=== PATIENT | female | born 1985 | race Caucasian/White ===

== ENCOUNTER 2020-01-22 12:22 | Emergency (ER) | payer BC, SELFPAY ==
--- NOTE | ~2020-01-22 | XR_ITS ---
EXAMINATION: XR chest 1V portable EXAM DATE: 01/22/2020 12:57 INDICATION: Left-sided chest pain and shortness of breath. TECHNIQUE: Portable AP frontal chest x-ray was obtained. Comparison is made to prior examination from 07/21/2009. FINDINGS: The lungs are clear. There are no pleural effusions. The cardiomediastinal silhouette is within normal limits. There is no pneumothorax suspected. The bones and soft tissues are unremarkab le. IMPRESSION: Unremarkable chest x-ray exam. Reviewed, dictated and finalized at location A.
--- NOTE | ~2020-01-22 | CT_ITS ---
EXAMINATION: CTA chest PE abdomen pel DATE: 01/22/2020 13:57 INDICATION: Left-sided chest pain and upper abdominal pain. TECHNIQUE: Computed tomography (CT) pulmonary angiogram of the chest was performed with 100 mL Omnipa que-350 intravenous contrast. Additional 3D reconstructions utilizing coronal maximum intensity proje ction (MIP) were performed. CT of the abdomen and pelvis was performed with intravenous contrast util izing the same contrast bolus following a short delay. Automated exposure control and iterative recon struction technique were employed. The dose-length product was 330.20 mGy-cm. COMPARISON: None FINDINGS: Chest: Excellent contrast opacification of the pulmonary arteries. There is mild streak artifact from dense contrast in the superior vena cava and right atrium. Significant motion artifact yielding diagnostic quality study which demonstrates no pulmonary embolism. Lungs are clear with no airspace disease, pul monary edema, pleural effusion or pneumothorax. Heart size is normal. No pericardial effusion. Thorac ic aorta is normal in caliber with no dissection. Mildly prominent left hilar lymph nodes but which r emain within normal limits in size, all measuring <8 mm in maximal short axis diameter. No pathologic ally enlarged thoracic lymphadenopathy. Mild lower thoracic spondylosis with a few Schmorl's nodes an d chronic mild anterior wedging at T10. Abdomen/pelvis: Liver, gallbladder, spleen, pancreas, bilateral adrenal glands and kidneys are normal. Postoperative changes with suture line along the posterior margin of the cecum and not visualized appendix suggesti ng prior appendectomy. Small amount of gas and fluid scattered throughout the small bowel. No abnorma l bowel wall thickening or obstruction. 4.3 cm subserosal fibroid along the anterior uterine fundus. Bladder is normal. Left adnexa is unremarkable. There is small amount of free fluid surrounding the r ight adnexa and in the cul-de-sac. The right adnexa there are a couple peripherally enhancing likely corpus luteum cysts. The larger measures approximately 1.9 cm with a discontinuity in the anterior wa ll consistent with a cyst rupture. No pathologically enlarged abdominal or pelvic lymphadenopathy. Tr ansitional partially lumbarized S1 segment. IMPRESSION: 1. Minimal likely reactive left hilar lymphadenopathy. No pulmonary embolism or other acute cardiopul monary disease. 2. Small amount of free fluid in the cul-de-sac and about the right adnexa where there appear to be a couple peripherally enhancing likely corpus luteum cysts, one with discontinuous anterior wall consi stent with cyst rupture. 3. 4.3 cm uterine fibroid. Reviewed, dictated and finalized at location A. IMPRESSION: 1. Minimal likely reactive left hilar lymphadenopathy. No pulmonary embolism or other acute cardiopulmonary disease. 2. Small amount of free fluid in the cul-de-sac and about the right adnexa wher e there appear to be a couple peripherally enhancing likely corpus luteum cysts , one with discontinuous anterior wall consistent with cyst rupture. 3. 4.3 cm uterine fibroid.
[2020-01-22 12:31] VITALS: BP 147/101; PULSE 111; RESP 20; TEMP 37.2; O2SAT 99
--- NOTE | 2020-01-22 12:35 | ED.CHESTPAIN ---
HPI - Chest Pain General Chief Complaint: Chest Pain Stated Complaint: chest pain Time Seen by Provider: 01/22/20 12:26 Source: patient and RN notes reviewed Mode of arrival: ambulatory Limitations: no limitations History of Present Illness HPI narrative: Pt is a 34 y/o female who presents to the ED with c/o lt sided chest pain starting last night. She notes that she laid around for most of the day yesterday, stating that she didn't sustain any injuries that could have caused her pain. Pt notes that she developed pain in her lt lower chest last night. She states that she then took Ibuprofen 600 mg for her pain, but denies having much relief. Pt notes that her pain worsened later this morning after doing laundry, and states that her pain began to radiate into her lt upper chest. She states that her pain is aggravated with breathing. Pt currently rates her pain at 8-9/10. She reports SOB accompanying her pain, but denies any fever, chills, or sore throat. Pt also notes being nauseas earlier, but denies any nausea currently. MD complaint: chest pain Onset (ago): day(s) (1) Timing of current episode: increasing Onset: during rest Pain location: left chest Exacerbating factors: other (breathing) Associated symptoms: nausea (resolved) and dyspnea Related Data Allergies Allergy/AdvReac Type Severity Reaction Status Date / Time codeine Allergy Unknown Verified 08/12/14 08:28 Review of Systems Review of Systems: All systems reviewed & are unremarkable except as noted in HPI and below Constitutional: Constitutional: Denies chills and Denies fever(s) ENT: Denies sore throat Cardiovascular: Cardiovascular: Reports chest pain (lt sided chest pain) Respiratory: Respiratory: Reports dyspnea Gastrointestinal: Gastrointestinal: Reports nausea (resolved) [facility] Past Medical History Medical History Anxiety Bilateral ankle fractures Endometriosis Right wrist fracture UTI (urinary tract infection) Surgical History Surgical History History of endometrial ablation History of left oophorectomy Hx of appendectomy Hx of right knee surgery Family History Family History (Updated 06/03/16 @ 23:19 by DOCTOR UNKNOWN) Father Hypertension Family history of diabetes mellitus in first degree relative Mother Hypertension Asthma Other Depression Diabetes mellitus Family history of arthritis Family history of migraine headaches Social History Social History Smoking status: Former smoker Smoking end date: 11/06/15 Alcohol intake: never Exam Const: General: alert Orientation/consciousness: patient oriented x3 Other: patient does not appear ill, she does appear to be in severe pain. HENMT: Head: normocephalic and atraumatic Mouth: Yes Normal oral and palatal mucosa present and Yes lip normal Eyes: Pupils: Equal, round and reactive pupils present Neck: Neck: normal visual inspection and no lymphadenopathy Chest: Chest palpation & inspection: tenderness (entire left chest tenderness, no erythema, no crepitus) Resp: Effort & Inspection: normal respiratory effort, no retractions, not tachypneic and no use of accessory muscles Auscultation: clear to auscultation bilaterally Cardio: Rate: regular rate Rhythm: regular rhythm Heart sounds: no murmurs GI: Inspection: normal to inspection and non-distended GI Palp: Yes Soft to palpation and No Tenderness to palpation present (GI) Auscultation: normal bowel sounds Back/Spine/Pelvis: Back: no CVA tenderness Skin: General skin exam: normal color Rashes: no rashes Neuro: General: patient oriented x3 and moves all extremities Extrem: General: normal to inspection and no pedal edema Course Reevaluation(s) Reevaluation #1: I have discussed with patient that she was found to have ruptured ovarian cyst. Her pain
[2020-01-22 12:41] VITALS: O2SAT 99
[2020-01-22 12:42] VITALS: PULSE 110
--- NOTE | 2020-01-22 12:45 | ECG_ITS ---
Measurements Intervals [place] Rate: 109 P: 68 MS: 105 QRS: 73 QRSD: 89 T: 42 QT: 313 QTc: 422 Interpretive Statements SINUS TACHYCARDIA WITH SHORT MS INTERVAL BASELINE ARTIFACT- I, II, III, AVR, AVL, AVF, V1 ABNORMAL ECG Electronically Signed On 01-22-2020 13:03:21 CDT by Víctor Onofre D.O.
[2020-01-22] MEDS: LACTATED RINGERS 1,000 ML 999 ML IV CONT (12:50)
[2020-01-22] MEDS: KETOROLAC 30 MG/ML VIAL (*BKC) IV PUSH (12:50)
[2020-01-22 12:55] LABS: Basophils Absolute Auto 0.1 K/mm3 (0.0-0.1); Basophils Percent Auto 0.5 % (0.2-1.2); Eosinophils Absolute Auto 0.4 K/mm3 (0-0.3); Eosinophils Percent Auto 2.8 % (0-4.4); Hematocrit 38.3 % (37.0-47.0); Hemoglobin 13.2 g/dL (12.0-15.0); Immature Granulocyte Absolute 0.06 K/mm3 (0.00-0.031); Immature Granulocyte Percent A 0.4 % (0-0.5); Lymphocytes Absolute Auto 2.81 K/mm3 (0.9-3.2); Lymphocytes Percent Auto 19.4 % (18.3-44.2); Mean Corpuscular HGB Conc 34.5 g/dl (32-36); Mean Platelet Volume 10.8 fl (7.4-10.4); Monocytes Absolute Auto 1.2 K/mm3 (0.1-0.6); Monocytes Percent Auto 8.1 % (2.6-8.5); Neutrophils Percent Auto 68.8 % (45.5-73.1); Platelet Count Result 362 k/mm3 (150-375); Red Cell Distribution Width 12.1 % (11.5-14.5); White Blood Count 14.5 K/mm3 (4.5-10.0)
[2020-01-22 13:04] LABS: INR 0.9
[2020-01-22 13:05] LABS: Partial Thromboplastin Time 24.5 SECONDS (22.3-36.8)
[2020-01-22 13:17] LABS: Alanine Aminotransferase 54 U/L (4-35); Albumin Level 4.2 g/dL (3.5-5.1); Alkaline Phosphatase 71 U/L (38-126); Aspartate Amino Transferase 38 U/L (14-36); Bilirubin,Total 0.5 mg/dL (0.2-1.3); Blood Urea Nitrogen 8 mg/dL (7-17); Calcium 9.3 mg/dL (8.4-10.2); Carbon Dioxide 22 mmol/L (22-30); Chloride 110 mmol/L (98-107); Estimated CRCL calculation 110 ml/min; Estimated Glomerular Filt Rate > 60; Glucose 99 mg/dL (65-105); Lipase 75 U/L (23-300); Potassium 3.8 mmol/L (3.4-5.0); Sodium 139 mmol/L (137-145)
[2020-01-22 13:29] LABS: Troponin I < 0.012 ng/mL (0.000-0.034)
[2020-01-22] MEDS: ONDANSETRON INJ 4 MG/2 ML VIAL IV PUSH (14:33)
[2020-01-22] MEDS: HYDROMORPHONE HCL 1 MG/ML INJ IV PUSH (14:33)
[2020-01-22 15:01] VITALS: BP 122/73; PULSE 83; RESP 16; O2SAT 98
[2020-01-22 16:03] LABS: Troponin I < 0.012 ng/mL (0.000-0.034)
[2020-01-22 16:34] VITALS: BP 117/71; PULSE 80; RESP 18; O2SAT 100
== END 2020-01-22 16:35 | disposition home or self-care (01) ==
PROVIDERS: Emergency Provider General Practice; PCP Emergency Medicine
DX: R07.89 Other chest pain (principal); N83.201 Unspecified ovarian cyst, right side; R00.0 Tachycardia, unspecified; F41.9 Anxiety disorder, unspecified
CPT/HCPCS: 36415; 71045; 71275; 74177; 80053; 81025; 83690; 84484; 85025; 85610; 85730; 93005; 96361; 96374; 96375; 99284; J1170; J1885; J2405; J3360; J7120; Q9967

== ENCOUNTER 2021-05-11 18:02 | Emergency (ER) | payer BC, SELFPAY ==
--- NOTE | ~2021-05-11 | CT_ITS ---
EXAMINATION: CTA chest PE abdomen pel DATE: 05/12/2021 00:55 INDICATION: Shortness of breath, back pain. History of lupus. TECHNIQUE: Computed tomography angiography (CTA) of the chest was performed with 100 mL Omnipaque-350 intravenous contrast timed to evaluate the pulmonary arteries. Coronal maximum intensity projection 3D-reconstructions were created by the technologist. Automated exposure control and iterative reconst ruction technique were employed. Exam dose: 366.89 mGy-cm total exam DLP. COMPARISON: 05/11/2021 2 view chest 01/22/2020 CT pulmonary scan FINDINGS: There is diagnostic contrast enhancement of the pulmonary arteries and no evidence of pulmo nary embolism. No evidence of thoracic aortic aneurysm or dissection. Normal heart size. No pericardial or pleural e ffusion. Mild prominence of the left hilar lymph nodes, as noted on 01/22/2020. No pulmonary infiltrate or consolidation or pulmonary mass lesion. No suspicious osteolytic or osteoblastic lesions. IMPRESSION: No evidence of pulmonary embolism Reviewed, dictated and finalized at Location A. Reviewed, dictated and finalized at location A.
--- NOTE | ~2021-05-11 | XR_ITS ---
EXAMINATION: XR chest 2V 05/11/2021 18:26 INDICATION: Low generalized back pain. History of lupus. PROCEDURE: 2 view chest COMPARISON: 01/22/2020 FINDINGS: The lungs are clear. The cardiomediastinal silhouette is within normal limits. There are no pleural effusions. There is no pneumothorax suspected. IMPRESSION: 1: NO ACUTE CARDIOPULMONARY DISEASE. Reviewed, dictated and finalized at location A.
[2021-05-11 18:08] VITALS: BP 142/70; PULSE 100; RESP 14; TEMP 37.6; O2SAT 98
--- NOTE | 2021-05-11 18:12 | ECG_ITS ---
Measurements Intervals [place] Rate: 87 P: 68 RI: 134 QRS: 76 QRSD: 87 T: 56 QT: 341 QTc: 411 Interpretive Statements SINUS RHYTHM LEFT ATRIAL ENLARGEMENT INCOMPLETE RIGHT BUNDLE BRANCH BLOCK BORDERLINE ECG Electronically Signed On 05-12-2021 8:15:13 CDT by Víctor Onofre D.O.
[2021-05-11 18:51] LABS: Basophils Absolute Auto 0.1 K/mm3 (0.0-0.1); Basophils Percent Auto 0.4 % (0.2-1.2); Eosinophils Absolute Auto 0.6 K/mm3 (0-0.3); Eosinophils Percent Auto 4.8 % (0-4.4); Hemoglobin 12.7 g/dL (12.0-15.0); Immature Granulocyte Absolute 0.04 K/mm3 (0.00-0.031); Immature Granulocyte Percent A 0.3 % (0-0.5); Lymphocytes Absolute Auto 4.27 K/mm3 (0.9-3.2); Lymphocytes Percent Auto 34.5 % (18.3-44.2); Mean Corpuscular HGB Conc 34.3 g/dl (32-36); Mean Corpuscular Hemoglobin 29.3 pg (26-34); Mean Corpuscular Volume 85.5 fl (80-100); Mean Platelet Volume 10.4 fl (7.4-10.4); Monocytes Percent Auto 8.1 % (2.6-8.5); Neutrophils Absolute Auto 6.4 K/mm3 (1.3-6.7); Neutrophils Percent Auto 51.9 % (45.5-73.1); Platelet Count Result 334 k/mm3 (150-375); Red Blood Count 4.33 M/mm3 (4.2-5.4); Red Cell Distribution Width 12.7 % (11.5-14.5); White Blood Count 12.4 K/mm3 (4.5-10.0)
[2021-05-11 19:00] LABS: Anion Gap 6 mmol/L (8-16); Blood Urea Nitrogen 8 mg/dL (7-17); Calcium 9.5 mg/dL (8.4-10.2); Carbon Dioxide 24 mmol/L (22-30); Chloride 107 mmol/L (98-107); Estimated CRCL calculation 133 ml/min; Estimated Glomerular Filt Rate > 60; Glucose 101 mg/dL (65-105); Potassium 3.7 mmol/L (3.4-5.0); Sodium 137 mmol/L (137-145)
--- NOTE | 2021-05-12 00:14 | ED.GENADULT ---
HPI - General Adult General Chief complaint: Shortness of Breath/Dyspnea Stated complaint: sob/back pain Time Seen by Provider: 05/11/21 23:33 History of Present Illness HPI narrative: Patient 35-year-old female presents the emergency department with chief complaint of back pain and shortness of breath. Patient reports she has history of lupus is currently not on any kind of treatment for that and reports that she has been having pain in the paraspinous muscles in the low thoracic area radiating down to her back. Patient reports had some shortness of breath with this reports is not able to get comfortable in any position. Patient reports she not having any real chest pain but does have shortness of breath with this. The patient reports that she is had some diarrhea which been chronic denies fever or denies vomiting. Related Data Allergies Allergy/AdvReac Type Severity Reaction Status Date / Time codeine Allergy Unknown Verified 08/12/14 08:28 Review of Systems Review of Systems: Narrative: A 10 system review of systems was completed on the patient and is negative except for what is stated in the HPI. Nursing and ancillary documentation was reviewed. [facility] Past Medical History Medical History (Updated 05/12/21 @ 01:52 by Juan Ruby MD) Anxiety Bilateral ankle fractures Endometriosis Right wrist fracture UTI (urinary tract infection) Surgical History Surgical History History of endometrial ablation History of left oophorectomy Hx of appendectomy Hx of right knee surgery Family History Family History Father Hypertension Family history of diabetes mellitus in first degree relative Mother Hypertension Asthma Other Depression Diabetes mellitus Family history of arthritis Family history of migraine headaches Social History Social History Smoking status: Former smoker Smoking end date: 11/06/15 Alcohol intake: never Exam Narrative: Exam Narrative: GENERAL: Well-appearing, well-nourished, and in no acute distress. HEAD: Normocephalic, atraumatic. EYES: PERRLA and EOMI. ENT: Nares clear, no rhinorrhea or epistaxis. Mucous membranes moist. NECK: Supple. CHEST: Clear to auscultation. No respiratory distress. HEART: Regular rate and rhythm. No murmur heard. Normal peripheral pulses. ABDOMEN: Soft, nontender, nondistended, normal active bowel sounds. EXTREMITIES: Normal range of motion. No edema. SKIN: Warm, dry, no rash. NEURO: No focal deficits. Alert and oriented x3. PSYCH: Normal mood and affect. Course Vital Signs Vital signs: Vital Signs Temperature 37.6 C H 05/11/21 18:08 Pulse Rate 100 05/11/21 18:08 Respiratory Rate 14 05/11/21 18:08 Blood Pressure 142/70 H 05/11/21 18:08 Pulse Oximetry 98 05/11/21 18:08 Temperature 37.6 C H 05/11/21 18:08 Pulse Rate 100 05/11/21 18:08 Respiratory Rate 14 05/11/21 18:08 Blood Pressure 142/70 H 05/11/21 18:08 Pulse Oximetry 98 05/11/21 18:08 Medical Decision Making Vital Signs Vital Signs: Vital Signs Temperature 37.6 C H 05/11/21 18:08 Pulse Rate 100 05/11/21 18:08 Respiratory Rate 14 05/11/21 18:08 Blood Pressure 142/70 H 05/11/21 18:08 Pulse Oximetry 98 05/11/21 18:08 Temperature 37.6 C H 05/11/21 18:08 Pulse Rate 100 05/11/21 18:08 Respiratory Rate 14 05/11/21 18:08 Blood Pressure 142/70 H 05/11/21 18:08 Pulse Oximetry 98 05/11/21 18:08 Lab Data Result diagrams: 05/11/21 18:43 05/11/21 18:43 Labs: Lab Results 05/11/21 05/11/21 05/12/21 Range/Units 18:43 18:43 00:14 WBC 12.4 H (4.5-10.0) K/mm3 RBC 4.33 (4.2-5.4) M/mm3 Hgb 12.7 (12.0-15.0) g/dL Hct 37.0 (37.0-47.0) % MCV 85.5 (80-100) fl MCH 29.3 (2
[2021-05-12] MEDS: SODIUM CHLORIDE 0.9% IV 1,000 ML 999 ML IV CONT (00:29)
[2021-05-12] MEDS: MORPHINE SULFATE (*CRX) 4 MG/ML INJ IV PUSH (00:31)
[2021-05-12] MEDS: KETOROLAC 30 MG/ML VIAL (*BKC) IV PUSH (00:32)
[2021-05-12 00:49] LABS: Lactic Acid Reflex 0.6 mmol/L (0.7-2.1)
[2021-05-12 00:50] LABS: Alanine Aminotransferase 39 U/L (4-35); Alkaline Phosphatase 80 U/L (38-126); Aspartate Amino Transferase 34 U/L (14-36); Bilirubin,Total 0.6 mg/dL (0.2-1.3); Lipase 75 U/L (23-300)
[2021-05-12 01:03] LABS: NT Pro B Type Natriuretic Pept 186 pg/mL (5-100); Troponin I < 0.012 ng/mL (0.000-0.034)
[2021-05-12 02:36] VITALS: BP 132/71; PULSE 77; RESP 18; O2SAT 99
[2021-05-12 04:52] LABS: Alanine Aminotransferase 41 U/L (4-35); Alkaline Phosphatase 80 U/L (38-126); Aspartate Amino Transferase 37 U/L (14-36); Bilirubin,Total 0.4 mg/dL (0.2-1.3); Lipase 76 U/L (23-300)
--- NOTE | 2021-05-14 03:44 | PC.NURSE ---
LATE ENTRY This note is being entered to document information to the patient's record. The following information was omitted on [], by rosalba patel @ 05/12/21 @0050[].
== END 2021-05-12 02:39 | disposition home or self-care (01) ==
PROVIDERS: Emergency Medicine; Emergency Provider Emergency Medicine; PCP Emergency Medicine
DX: R06.00 Dyspnea, unspecified (principal); M54.9 Dorsalgia, unspecified; Z87.440 Personal history of urinary (tract) infections; Z87.891 Personal history of nicotine dependence; I45.10 Unspecified right bundle-branch block; R94.31 Abnormal electrocardiogram [ECG] [EKG]; N83.201 Unspecified ovarian cyst, right side
CPT/HCPCS: 36415; 71046; 71275; 74177; 80048; 80076; 83605; 83690; 83880; 84484; 85025; 93005; 96374; 96375; 99284; J1885; J2270; J7030; Q9967

== ENCOUNTER 2021-06-28 00:47 | Day surgery (SDC) | payer BC, SELFPAY ==
--- NOTE | 2021-06-25 10:01 | PM.IMHP ---
H&P: HPI History of Present Illness Date/Time: 06/25/21 10:01 35 y/o with persistent RLQ pain and known right ovarian cyst. Amenorrheic s/p ablation Chief Complaint: right ovarian cyst, pelvic pain Review of Systems Review of Systems: All systems reviewed & are unremarkable except as noted in HPI and below PMFSH Past Medical History Medical History Anxiety Bilateral ankle fractures Endometriosis HSV (herpes simplex virus) infection Lupus Migraine Right wrist fracture Surgical History Surgical History History of endometrial ablation 2018? History of laparoscopy 9 on ovaries and 3 on right knee History of left oophorectomy Hx of appendectomy Hx of right knee surgery x3 [place] teeth extracted Family History Family History Father Hypertension Diabetes mellitus Heart problem Mother Hypertension Asthma Anxiety Depression Cerebrovascular accident Other Family history of arthritis Family history of migraine headaches Social History Social History Smoking packs per day: 0.5 Smoking cigarettes per day: 10.0 Years smoked: 18 Smoking pack-years: 9.00 Smoking status: Current every day smoker Tobacco type: cigarettes Smoking end date: 11/06/15 Alcohol intake: current Drinks per week: 4 Alcohol use details: socially Substance use: never Meds Home Medications and Allergies Home Medications Medication Instructions Recorded Confirmed Type alprazolam 0.5 mg tablet 0.5 mg PO QHS PRN 05/31/21 06/23/21 History escitalopram oxalate 10 mg tablet 10 mg PO DAILY 05/31/21 06/23/21 History hydroxychloroquine 200 mg PO DAILY 06/23/21 06/23/21 History Allergies Allergy/AdvReac Type Severity Reaction Status Date / Time No Known Allergies Allergy Verified 06/21/21 10:59 Exam Const: General: cooperative, healthy appearing, no acute distress, well developed, alert and awake Resp: Auscultation: clear to auscultation bilaterally Cardio: Rate: regular rate Rhythm: regular rhythm GI: Inspection: non-distended GI Palp: Yes Soft to palpation and No Tenderness to palpation present (GI) : Bimanual exam- vagina & uterus: normal bimanual exam, uterine size normal, uterine mobility normal, non-tender, no cervical motion tenderness and soft Bimanual Exam- Adnexa, other: tender on the right and Adnexal mass present on the right Extrem: General: no pedal edema and no calf tenderness Psych: Mental Status: mental status grossly normal Assessment and Plan Assessment and plan (1) Right ovarian cyst: Code(s): N83.201 - Unspecified ovarian cyst, right side Status: Acute Assessment and Plan: She opted and signed consent for laparoscopic right oophorectomy and bilateral salpingectomy (if both tubes are still present, unsure if left tube removed with her prior oophorectomy or not) after risks, benefits, complications, and alternatives discussed. She is aware removing her remaining ovary will put her into menopause, and we will start HRT immediately due to her young age. (2) Pelvic pain: Code(s): R10.2 - Pelvic and perineal pain Status: Acute
[2021-06-28] VITALS (8 sets, daily range): BP systolic 107–131; BP diastolic 54–77; PULSE 58–108; RESP 13–19; TEMP 36.6–37.1; O2SAT 98–100
[2021-06-28] MEDS: ACETAMINOPHEN 500 MG TABLET 1000 MG PO (10:40)
--- NOTE | 2021-06-28 10:45 | P.PNAN_ITS ---
Anes - Initial Pre Proc Eval Procedure: Operation Date: 06/28/21 12:00 Proposed Procedures p Laparoscopic Right Oophorectomy, Bilateral Salpingectomy - Zaida Kruger MD Date/Time: 06/28/21 10:45 Surgeon: Zaida Kruger MD Pre Op Diagnosis: ovarian cyst, pelvic pain Patient Data Age: 35 Gender: F Height: Weight: Allergies Allergy/AdvReac Type Severity Reaction Status Date / Time No Known Allergies Allergy Verified 06/28/21 10:33 Home Medications Medication Instructions Recorded Confirmed Type alprazolam 0.5 mg tablet 0.5 mg PO QHS PRN 05/31/21 06/28/21 History escitalopram oxalate 10 mg tablet 10 mg PO DAILY 05/31/21 06/28/21 History hydroxychloroquine 200 mg PO DAILY 06/23/21 06/28/21 History Patient hx anesthesia problems: none Family hx anesthesia problems: none PMFSH Past Medical History Medical History (Updated 06/28/21 @ 10:51 by Richmond Montanez DO) Anxiety Bilateral ankle fractures Discoid lupus just skin Endometriosis HSV (herpes simplex virus) infection Migraine Right wrist fracture Surgical History Surgical History History of endometrial ablation 2018? History of laparoscopy 9 on ovaries and 3 on right knee History of left oophorectomy Hx of appendectomy Hx of right knee surgery x3 [place] teeth extracted Family History Family History Father Hypertension Diabetes mellitus Heart problem Mother Hypertension Asthma Anxiety Depression Cerebrovascular accident Other Family history of arthritis Family history of migraine headaches Social History Social History Smoking packs per day: 0.5 Smoking cigarettes per day: 10.0 Years smoked: 18 Smoking pack-years: 9.00 Smoking status: Current every day smoker Tobacco type: cigarettes Smoking end date: 11/06/15 Alcohol intake: current Drinks per week: 4 Alcohol use details: socially Substance use: never Living arrangements: with family Anes - Eval Final PreProcedure Day of Procedure 06/28/21 10:45 Patient weight: normal Heart: regular rate and rhythm Lungs: clear to auscultation and normal air movement Airway: Mallampati scale class 1 Neurological: alert and oriented Last oral intake: >/= 8 hours ASA classification: II Emergent: no Anesthetic plan: proceed Anesthesia type and monitoring: general ETT and standard monitoring Informed Consent: The patient's anesthetic plan and its attendant risks and benefits were discussed with the patient/family/POA. Questions were solicited and answers provided to the satisfaction of the patient/family/POA.
[2021-06-28] MEDS: LACTATED RINGERS 1,000 ML 30 ML IV CONT ×2 (10:50→13:19)
[2021-06-28] MEDS: FAMOTIDINE 20 MG/2 ML VIAL IV PUSH (11:09)
[2021-06-28] MEDS: KETOROLAC 15 MG/ML VIAL (*BKC) IV PUSH (11:09)
[2021-06-28] MEDS: SCOPOLAMINE 1.5 MG PATCH TRANSDERM (11:10)
--- NOTE | 2021-06-28 11:26 | WPDHPUPDATE1 ---
History and Physical Update Update Date/Time: 06/28/21 11:26 History and Physical has been reviewed, including an updated exam of the patient. There are NO changes in the patient's condition. Risks, benefits, and alternatives have been discussed and questions answered. Patient agrees to proceed with procedure.
[2021-06-28] MEDS: MIDAZOLAM HCL (*CRX) 2 MG/2 ML VIAL IV PUSH (12:00)
--- NOTE | 2021-06-28 12:12 | P.OP_ITS ---
Procedure Note - Detailed Date of Procedure 06/28/21 Pre-op Diagnosis ovarian cyst, pelvic pain Post-op Diagnosis other (right ovarian cyst, pelvic pain, endometriosis) Procedure Performed L/S right oophorectomy, bilateral salpingectomy, excision and cauterization of endometriosis Surgeon Zaida Kruger MD Anesthesia general Indications Right ovarian cyst and pelvic pain Findings right ovary with 3 cm serous filled cyst, normal bilateral tubes, normal uterus, liver. Endometriosis implants in cul-de-sac, left paraovarian fossa, and vesicouterine peritoneum Description of Procedure She was taken to the operating where she was placed under general anesthesia. She was prepared and draped in the normal sterile fashion in the dorsal lithotomy position. Marcaine was injected infraumbilically. A 5 mm skin in cision was made in the infraumbilical fold. A 5 mm non bladed trocar was placed with the camera in the trocar under direct visualization into the peritoneal cavity. Insufflation was begun, and she was placed in Trendelenburg. 5 mm trocar was placed in the right lower quadrant under direct visualization. Inspection of the pelvis revealed the findings as noted above. A 10 mm trocar was then placed in the midline suprapubic area under direct visualization. Some minor adhesions between the colon and left pelvic sidewall were removed using the Harmonic scalpel in order to visualize the left fallopian tube more effectively. The mesosalpinx of the left tube was grasped and serially transected. The fallopian tube was then transected near its insertion to the uterus. That tube was brought easily through the trocar and sent for pathology. The right infundibulopelvic ligament was then grasped coagulated and transected using the Harmonic scalpel. The mesosalpinx was serially clamped and transected. The right utero-ovarian ligament was transected. The right fallopian tube was then transected near its insertion to the uterus. The right tube and ovary were placed in the posterior cul-de-sac. Next, an endometriosis implant to the left vesicouterine peritoneum was grasped. That peritoneum was entered with the Harmonic scalpel. That endometriosis implant was excised and sent for pathology. The same procedure was performed for another endometriosis implant in the left paraovarian fossa, and taking care to avoid the ureter on that side, which was easily visible. There were a few more endometriosis implants in the posterior cul-de-sac as well as on the vesicouterine peritoneum which were all cauterized using the Harmonic scalpel. The right fallopian tube and ovary were then grasped and placed in an endo-pouch. The suprapubic incision was extended slightly with the scalpel at the skin as well as using the Baez scissors at the fascia in order to allow the Endo pouch containing the tube and ovary to fit through that incision. The Michael-Ambrose device was then used along with an 0 Vicryl to close the fascia of the suprapubic incision. Two sutures were placed. The pneumoperitoneum was allowed to escape after the operative sites were noted to be hemostatic. All trocars were removed. All 3 skin incisions were closed using 4-0 Monocryl in subcuticular fashion. She tolerated the procedure well. Sponge, lap, needle, and instrument counts were correct x2. She was taken to the recovery room in stable condition. Estimated Blood Loss 10 Drains No Packing No Pathology yes (both tubes, right ovary, and two peritoneal biopsies) Complications No immediate complications Condition stable Disposition PACU
[2021-06-28] MEDS: BUPIVACAINE/EPINEPHRINE 0.5% 50 ML VIAL (13:07)
[2021-06-28] MEDS: fentaNYL CITRATE INJ (*CRX) 100 MCG/2 ML VIAL 25 MCG IV PUSH ×4 (13:40→13:49)
[2021-06-28] MEDS: oxyCODONE HCL (*CRX) 5 MG TAB IR PO (14:30)
== END 2021-06-28 15:04 | disposition home or self-care (01) ==
PROVIDERS: PCP Emergency Medicine; Visit Provider Obstetrics & Gynecology
PROC: (CPT 49320; principal; 2021-06-28 12:00)
DX: N83.01 Follicular cyst of right ovary (principal); N80.3 Endometriosis of pelvic peritoneum; N73.6 Female pelvic peritoneal adhesions (postinfective); F41.9 Anxiety disorder, unspecified; F32.9 Major depressive disorder, single episode, unspecified; L93.0 Discoid lupus erythematosus; F17.210 Nicotine dependence, cigarettes, uncomplicated; Z79.899 Other long term (current) drug therapy
CPT/HCPCS: 58661; 58662; 88305; A9270; J0330; J1100; J1885; J2250; J2405; J2704; J2710; J3010; J7030; J7120

== ENCOUNTER 2021-07-01 16:42 | Inpatient (IN) | payer BC, SELFPAY ==
--- NOTE | ~2021-07-01 | CT_ITS ---
EXAMINATION: CT abdomen pelvis w con DATE: 07/01/2021 20:17 INDICATION: Lower abdominal pain TECHNIQUE: Computed tomography (CT) of the abdomen and pelvis was performed with 100 cc Omnipaque 350 intravenous contrast. Automated exposure control and iterative reconstruction technique were employe d. Exam dose: 264.18 mGy-cm total exam DLP. COMPARISON: 05/12/2021 CTA chest abdomen pelvis FINDINGS: The lung bases are clear. Normal heart size. No pericardial or pleural effusion. There is prominent intraperitoneal free air in the abdomen and pelvis, greater than expected consider ing history of oophorectomy 4 days ago. There are numerous fluid distended small bowel segments and s mall bowel air-fluid levels in the mid and lower abdomen, measuring up to approximately 2.3 cm diamet er. The distal and terminal ileum are considerably smaller caliber. Ruptured hollow abdominal viscus is not excluded. The small bowel fluid distention and air-fluid levels may be due to adynamic ileus, less likely small bowel obstruction. There is moderate free fluid in the dependent pelvis and mild fluid accumulation in the paracolic gut ters. The liver, gallbladder, spleen, pancreas, bile ducts, pancreatic duct, and adrenal glands and kidneys are unremarkable. No urinary tract calculus or hydroureteronephrosis. Normal caliber of the abdominal aorta. No intraperitoneal or retroperitoneal or pelvic mass lesion or adenopathy. Mildly enlarged probable fibroid uterus. The urinary bladder is unremarkable. Small umbilical hernia containing fat and free air. No suspicious osteolytic or osteoblastic lesions. IMPRESSION: Greater than expected amount of intraperitoneal free air following oophorectomy 4 days a go, [id number] free fluid in the dependent pelvis and to a lesser extent paracolic gutters. Con pile driving setter hollow viscus rupture. Surgical consult is recommended. Reviewed, dictated and finalized at [facility]. Reviewed, dictated and finalized at [facility]. IMPRESSION: Greater than expected amount of intraperitoneal free air following oophorectomy 4 days ago, [id number] free fluid in the dependent pelvis a nd to a lesser extent paracolic gutters. Consider hollow viscus rupture. Surgic al consult is recommended.
[2021-07-01 16:51] VITALS: BP 120/78; PULSE 113; RESP 19; TEMP 37.5; O2SAT 100
[2021-07-01 17:08] LABS: Basophils Percent Auto 0.2 % (0.2-1.2); Eosinophils Absolute Auto 0.5 K/mm3 (0-0.3); Eosinophils Percent Auto 3.9 % (0-4.4); Hematocrit 38.4 % (37.0-47.0); Hemoglobin 13.1 g/dL (12.0-15.0); Immature Granulocyte Absolute 0.04 K/mm3 (0.00-0.031); Immature Granulocyte Percent A 0.3 % (0-0.5); Lymphocytes Absolute Auto 2.51 K/mm3 (0.9-3.2); Lymphocytes Percent Auto 18.8 % (18.3-44.2); Mean Corpuscular HGB Conc 34.1 g/dl (32-36); Mean Corpuscular Hemoglobin 29.4 pg (26-34); Mean Corpuscular Volume 86.3 fl (80-100); Mean Platelet Volume 10.4 fl (7.4-10.4); Monocytes Absolute Auto 0.8 K/mm3 (0.1-0.6); Monocytes Percent Auto 5.9 % (2.6-8.5); Neutrophils Absolute Auto 9.5 K/mm3 (1.3-6.7); Neutrophils Percent Auto 70.9 % (45.5-73.1); Platelet Count Result 391 k/mm3 (150-375); Red Blood Count 4.45 M/mm3 (4.2-5.4); Red Cell Distribution Width 12.3 % (11.5-14.5); White Blood Count 13.4 K/mm3 (4.5-10.0)
[2021-07-01 17:18] LABS: Alanine Aminotransferase 47 U/L (4-35); Alkaline Phosphatase 85 U/L (38-126); Anion Gap 7 mmol/L (8-16); Aspartate Amino Transferase 26 U/L (14-36); Bilirubin,Total 0.4 mg/dL (0.2-1.3); Blood Urea Nitrogen 7 mg/dL (7-17); Calcium 9.4 mg/dL (8.4-10.2); Carbon Dioxide 25 mmol/L (22-30); Chloride 107 mmol/L (98-107); Estimated CRCL calculation 133 ml/min; Estimated Glomerular Filt Rate > 60; Glucose 119 mg/dL (65-110); Lipase 312 U/L (23-300); Potassium 4.1 mmol/L (3.4-5.0); Sodium 139 mmol/L (137-145)
--- NOTE | 2021-07-01 18:51 | ED.ABDPAIN ---
HPI - Abdominal Pain General Chief Complaint: Abdominal Pain Stated Complaint: surgical site pain Time Seen by Provider: 07/01/21 18:22 Source: patient Mode of arrival: ambulatory Limitations: no limitations History of Present Illness HPI narrative: Patient is a 35-year-old female, status post right oophorectomy, complaining of lower abdominal pain, 9 out of 10, sharp, nonradiating started 4 days ago right after surgery. Patient denies any chest pain, shortness of breath, nausea, vomiting, diarrhea, fever or chills. Related Data Home Medications Medication Instructions Recorded Confirmed alprazolam 0.5 mg tablet 0.5 mg PO QHS PRN 05/31/21 06/28/21 escitalopram oxalate 10 mg tablet 10 mg PO DAILY 05/31/21 06/28/21 hydroxychloroquine 200 mg PO DAILY 06/23/21 06/28/21 Allergies Allergy/AdvReac Type Severity Reaction Status Date / Time No Known Allergies Allergy Verified 07/01/21 18:20 Review of Systems Review of Systems: All systems reviewed & are unremarkable except as noted in HPI and below Constitutional: Constitutional: Denies body ache(s), Denies chills, Denies excessive sweating, Denies fatigue, Denies fever(s), Denies headache(s), Denies lethargy, Denies malaise, Denies weakness and Denies weight loss Eyes: Eyes: Denies blurry vision, Denies change in vision and Denies loss of vision ENT: Denies dizziness, Denies ear discharge, Denies headache(s), Denies lip swelling, Denies epistaxis, Denies nasal congestion, Denies neck pain, Denies throat swelling and Denies tongue swelling Cardiovascular: Cardiovascular: Denies chest pain, Denies chest pain at rest, Denies chest pain with activity, Denies diaphoresis, Denies rapid heart rate, Denies edema, Denies irregular heart rhythm, Denies lightheadedness, Denies palpitations, Denies dyspnea and Denies dyspnea on exertion Respiratory: Respiratory: Denies chest congestion, Denies cough, Denies hemoptysis, Denies dyspnea and Denies dyspnea on exertion Gastrointestinal: Gastrointestinal: Denies melena, Denies hematochezia, Denies diarrhea, Denies nausea, Denies vomiting and Denies hematemesis Musculoskeletal: Musculoskeletal: Denies abnormal gait, Denies deformity, Denies joint swelling, Denies limited range of motion, Denies neck pain and Denies numbness Neurologic: Denies Abnormal speech present, Denies abnormal gait, Denies confusion, Denies dizziness, Denies headache(s), Denies focal weakness, Denies loss of vision, Denies numbness, Denies Other visual disturbances, Denies Sensory deficit (Neuro) and Denies weakness Psychiatric: Psychiatric: Denies confusion, Denies depression, Denies auditory hallucinations, Denies homicidal ideation and Denies suicidal ideation Endocrine: Endocrine: Denies cold intolerance, Denies excessive sweating, Denies fatigue, Denies heat intolerance and Denies palpitations Hematologic/Lymphatic: Hematologic/Lymphatic: Denies easy bleeding and Denies easy bruising Allergic/Immunologic: Allergic/Immunologic: Denies lip swelling, Denies throat swelling and Denies tongue swelling PMFSH Past Medical History Medical History Anxiety Bilateral ankle fractures Discoid lupus just skin Endometriosis HSV (herpes simplex virus) infection Migraine Right wrist fracture Surgical History Surgical History History of endometrial ablation 2018? History of laparoscopy 9 on ovaries and 3 on right knee History of left oophorectomy Hx of appendectomy Hx of right knee surgery x3 [place] teeth extracted Family History Family History Father Hypertension Diabetes mellitus Heart problem Mother Hypertension Asthma Anxiety Depression Cerebrovascular accident Other Family history of arthritis Family history of migraine headaches Social History Social History (Reviewed
[2021-07-01 19:07] LABS: Add Urine Microscopic? NO; Appearance Urine Clear (Clear); Bilirubin Urine Negative (Negative); Blood Urine Negative (Negative); Color Urine Yellow (Yellow); Glucose Urine UA Negative (Negative); Ketones Urine Negative (Negative); Leukocyte Esterase Ur Negative LEU/UL (Negative); Nitrate Urine Negative (Negative); Protein Urine Negative (Negative); Specific Grav Ur 1.016 (1.001-1.035); Urobilinogen Urine Negative mg/dL (<2.0)
[2021-07-01] MEDS: PROMETHAZINE HCL 25 MG/ML AMPUL 12.5 MG IV PUSH (19:59)
[2021-07-01] MEDS: LACTATED RINGERS 1,000 ML 999 ML IV CONT (20:00)
[2021-07-01] MEDS: HYDROmorphone HCL INJ (*CRX) 1 MG/ML SYR 0.5 MG IV PUSH (20:00)
[2021-07-01 21:43] VITALS: BP 118/77; PULSE 82; RESP 16; O2SAT 100
--- NOTE | 2021-07-01 22:20 | WPDANESEPP ---
Anes - Eval Pre Procedure Procedure: exploratory laparotomy Date/Time: 07/01/21 22:20 Surgeon: marcy Pre Op Diagnosis: surgical site pain Patient Data Age: 35 Gender: F Height: 1.6 m Weight: 54.4 kg Last Vital Signs Temp 37.5 C 07/01/21 16:51 Pulse 82 07/01/21 21:43 Resp 16 07/01/21 21:43 BP 118/77 07/01/21 21:43 Pulse Ox 100 07/01/21 21:43 Allergies Allergy/AdvReac Type Severity Reaction Status Date / Time No Known Allergies Allergy Verified 07/01/21 18:20 Home Medications Medication Instructions Recorded Confirmed Type alprazolam 0.5 mg tablet 0.5 mg PO QHS PRN 05/31/21 06/28/21 History escitalopram oxalate 10 mg tablet 10 mg PO DAILY 05/31/21 06/28/21 History hydroxychloroquine 200 mg PO DAILY 06/23/21 06/28/21 History estradiol 1 mg PO DAILY #90 tablet 06/28/21 Rx estradiol-norethindrone acet 1 tablet PO DAILY #84 tablet 06/28/21 Rx ibuprofen 600 mg PO Q6H PRN #60 tablet 06/28/21 Rx oxycodone-acetaminophen 1 tablet PO Q4H PRN #20 tablet 06/28/21 Rx ondansetron 4 mg disintegrating 4 mg PO Q6H PRN #20 tablet 06/29/21 Rx tablet oxycodone-acetaminophen 5 mg-325 1 tablet PO Q6H PRN #30 tablet 07/01/21 Rx mg tablet Laboratory Tests 07/01/21 07/01/21 07/01/21 16:58 16:58 18:33 WBC 13.4 K/mm3 H K/mm3 (4.5-10.0) RBC 4.45 M/mm3 M/mm3 (4.2-5.4) Hgb 13.1 g/dL g/dL (12.0-15.0) Hct 38.4 % % (37.0-47.0) MCV 86.3 fl fl (80-100) MCH 29.4 pg pg (26-34) MCHC 34.1 g/dl g/dl (32-36) RDW 12.3 % % (11.5-14.5) Plt Count 391 k/mm3 H k/mm3 (150-375) MPV 10.4 fl fl (7.4-10.4) Immature Gran % (Auto) 0.3 % % (0-0.5) Neut % (Auto) 70.9 % % (45.5-73.1) Lymph % (Auto) 18.8 % % (18.3-44.2) [place] % (Auto) 5.9 % % (2.6-8.5) Eos % (Auto) 3.9 % % (0-4.4) Baso % (Auto) 0.2 % % (0.2-1.2) Lymph # (Auto) 2.51 K/mm3 K/mm3 (0.9-3.2) [place] # (Auto) 0.8 K/mm3 H K/mm3 (0.1-0.6) Eos # (Auto) 0.5 K/mm3 H K/mm3 (0-0.3) Baso # (Auto) 0.0 K/mm3 K/mm3 (0.0-0.1) Abs Immat Gran (auto) 0.04 K/mm3 H K/mm3 (0.00-0.031) Absolute Neuts (auto) 9.5 K/mm3 H K/mm3 (1.3-6.7) Absolute Nucleated RBC 0.0 K/mm3 K/mm3 (0.0-0.012) Nucleated RBC % 0.0 % % (0.0-0.2) Sodium 139 mmol/L mmol/L (137-145) Potassium 4.1 mmol/L mmol/L (3.4-5.0) Chloride 107 mmol/L mmol/L (98-107) Carbon Dioxide 25 mmol/L mmol/L (22-30) Anion Gap 7 mmol/L L mmol/L (8-16) BUN 7 mg/dL mg/dL (7-17) Creatinine 0.40 mg/dL L mg/dL (0.7-1.0) Estim Creat Clear Calc 133 ml/min ml/min Estimated GFR > 60 (59 - ) Glucose 119 mg/dL H mg/dL (65-110) Calcium 9.4 mg/dL mg/dL (8.4-10.2) Total Bilirubin 0.4 mg/dL mg/dL (0.2-1.3) AST 26 U/L U/L (14-36) ALT 47 U/L H U/L (4-35) Alkaline Phosphatase 85 U/L U/L (38-126) Total Protein 7.0 g/dL g/dL (6.3-8.2) Albumin 4.0 g/dL g/dL (3.5-5.1) Lipase 312 U/L H U/L (23-300) Urine Color Yellow (Yellow) Urine Appearance Clear (Clear) Urine pH 7.0 (5.0-9.0) Ur Specific [place] 1.016 (1.001-1.035) Urine Protein Negative mg/dL mg/dL (Negative) Urine Glucose (UA) Negative mg/dL mg/dL (Negative) Urine Ketones Negative mg/dL mg/dL (Negative) Ur Blood (Man) Negative (Negative) Urine Nitrate Negative (Negative) Urine Bilirubin Negative (Negative) Urine Urobilinogen Negative mg/dL mg/dL (<2.0) Leukocyte Esterase Rfl Negative EDISON/UL EDISON/UL (Negative) Patient hx anesthesia problems: none Family hx anesthesia probl
[2021-07-01 22:40] VITALS: BP 122/78; PULSE 81; RESP 12; O2SAT 98
[2021-07-01] MEDS: HYDROmorphone HCL INJ (*CRX) 1 MG/ML SYR IV PUSH (22:58)
--- NOTE | 2021-07-01 23:02 | PM.IMHP ---
H&P: HPI History of Present Illness Date/Time: 07/01/21 23:02 Pt is a 35 y/o F presenting to ED c/o severe diffuse abdominal pain over last 4 days. Pt reports she had R oophorectomy and bilateral salpingectomy on 06/28. Pt reports pain since postop and po analgesia c minimal relief. Pt reports poor appetite and overall did not feel well. Pt has had multiple OB surgeries in the past (9 or 10) and appendectomy. Chief Complaint: abdominal pain Review of Systems Constitutional: Constitutional: Reports anorexia, Reports body ache(s), Reports chills, Reports fatigue, Reports fever(s), Reports lethargy, Reports poor appetite, Reports weakness, Denies weight gain and Denies weight loss Eyes: Eyes: Reports no additional eye complaints ENT: Reports system reviewed and no additional complaints, except as documented Cardiovascular: Cardiovascular: Reports no additional cardiovascular complaints Respiratory: Respiratory: Reports no additional respiratory complaints Gastrointestinal: Gastrointestinal: Reports as per HPI, Reports abdominal pain, Reports bloating, Denies diarrhea, Reports nausea and Denies vomiting Genitourinary: Genitourinary: Reports no additional female genitourinary complaints and Reports as per HPI Musculoskeletal: Musculoskeletal: Reports no additional musculoskeletal complaints Integumentary/Breasts: Skin/Breast: Reports system reviewed and no additional complaints, except as docu Neurologic: Reports system reviewed and no additional complaints, except as documented Psychiatric: Psychiatric: Reports no additional psychiatric complaints Endocrine: Endocrine: Reports no additional endocrine complaints Hematologic/Lymphatic: Hematologic/Lymphatic: Reports no additional hematologic/lymphatic complaints Allergic/Immunologic: Allergic/Immunologic: Reports no additional allergic/immunologic complaints PMFSH Past Medical History Medical History Anxiety Bilateral ankle fractures Discoid lupus just skin Endometriosis HSV (herpes simplex virus) infection Migraine Right wrist fracture Surgical History Surgical History History of endometrial ablation 2018? History of laparoscopy 9 on ovaries and 3 on right knee History of left oophorectomy Hx of appendectomy Hx of right knee surgery x3 [place] teeth extracted Family History Family History Father Hypertension Diabetes mellitus Heart problem Mother Hypertension Asthma Anxiety Depression Cerebrovascular accident Other Family history of arthritis Family history of migraine headaches Social History Social History Smoking packs per day: 0.5 Smoking cigarettes per day: 10.0 Years smoked: 18 Smoking pack-years: 9.00 Smoking status: Current every day smoker Tobacco type: cigarettes Smoking end date: 11/06/15 Alcohol intake: current Drinks per week: 4 Alcohol use details: socially Substance use: never Meds Home Medications and Allergies Home Medications Medication Instructions Recorded Confirmed Type alprazolam 0.5 mg tablet 0.5 mg PO QHS PRN 05/31/21 06/28/21 History escitalopram oxalate 10 mg tablet 10 mg PO DAILY 05/31/21 06/28/21 History hydroxychloroquine 200 mg PO DAILY 06/23/21 06/28/21 History estradiol 1 mg PO DAILY #90 tablet 06/28/21 Rx estradiol-norethindrone acet 1 tablet PO DAILY #84 tablet 06/28/21 Rx ibuprofen 600 mg PO Q6H PRN #60 tablet 06/28/21 Rx oxycodone-acetaminophen 1 tablet PO Q4H PRN #20 tablet 06/28/21 Rx ondansetron 4 mg disintegrating 4 mg PO Q6H PRN #20 tablet 06/29/21 Rx tablet oxycodone-acetaminophen 5 mg-325 1 tablet PO Q6H PRN #30 tablet 07/01/21 Rx mg tablet Allergies Allergy/AdvReac Type Severity Reaction Status Date / Time No Known Allergies Al
--- NOTE | 2021-07-01 23:17 | WPDHPUPDATE1 ---
History and Physical Update Update Date/Time: 07/01/21 23:17 History and Physical has been reviewed, including an updated exam of the patient. There are NO changes in the patient's condition. Risks, benefits, and alternatives have been discussed and questions answered. Patient agrees to proceed with procedure.
[2021-07-01] MEDS: metroNIDAZOLE 500 MG/ISO 100ML 500 MG/100 ML BAG 100 MG IVPB (23:45)
[2021-07-01] MEDS: LACTATED RINGERS 1,000 ML 30 ML IV CONT (23:45)
[2021-07-02] VITALS (14 sets, daily range): BP systolic 128–148; BP diastolic 65–87; PULSE 73–101; RESP 15–20; TEMP 36.2–37.6; O2SAT 95–99
--- NOTE | 2021-07-02 00:36 | W.PM.PROC2 ---
Procedure Note - Detailed Date of Procedure 07/02/21 Pre-op Diagnosis free air, free intraabdominal fluid Post-op Diagnosis same Procedure Performed exploratory laparotomy, lysis of adhesions, washout, placement of pelvic drain Surgeon Maryuri Berry MD Anesthesia general Indications 35 y/o F s/p lap R oophorectomy, [place] salpingectomy 06/28 presenting to ED c peritonitis. Imaging c/w free air, free fluid. Findings moderate amount of free air, free pelvic fluid, uterine fibroid Description of Procedure The patient was taken to the operating room placed in the supine position. After adequate induction of general anesthesia, the patient was prepped and draped in the normal sterile fashion. A time-out was then done to verify the patient's identity, as well as the procedure being performed. I began by making a midline incision around the umbilicus. This incision was carried down into the peritoneal cavity. Upon entering the peritoneum, a moderate amount of free air was encountered. I then and noted that there was a moderate amount of free serous intra-abdominal fluid, mostly located in the pelvis and right pericolic gutter. I began by running the small intestine. The small intestine was noted to mildly dilated but otherwise unremarkable. I then took down the attachments of the right colon. The right colon was then Kocherized and close examination revealed no pathology. I then ran the rest of the colon including the sigmoid and upper rectum which was all noted to be unremarkable. I then examined the stomach which was also noted to be unremarkable. Upon examining the pelvis, there was noted to be a large uterine fibroid. I then copiously irrigated out the abdominal cavity. I left a 19 [place] drain in the pelvis coming out through the right lower quadrant. I then closed the abdomen with an 0 looped PDS suture at the fascial level. The subcutaneous tissue was closed with 3-0 Vicryl suture. The skin was closed with 4 Monocryl subcuticular suture. Dermabond was then placed on the wound. The patient tolerated the procedure well and was extubated in the operating room postoperatively. She will be sent to the recovery room in stable condition. Implants Nineteen [place] JADON drain in the pelvis Estimated Blood Loss 25 Drains Yes Packing No Pathology none sent Complications No immediate complications Condition stable Disposition PACU
[2021-07-02] MEDS: LACTATED RINGERS 1,000 ML 30 ML IV CONT (00:48)
[2021-07-02] MEDS: fentaNYL CITRATE INJ (*CRX) 100 MCG/2 ML VIAL 25 MCG IV PUSH ×4 (01:02→01:36)
[2021-07-02] MEDS: MORPHINE SULFATE (*CRX) 4 MG/ML INJ IV PUSH ×4 (02:14→13:22)
[2021-07-02] MEDS: ONDANSETRON INJ 4 MG/2 ML VIAL IV PUSH ×2 (02:25→06:17)
[2021-07-02] MEDS: LACTATED RINGERS 1,000 ML 100 ML IV CONT (02:25)
--- NOTE | 2021-07-02 03:51 | ADMGEN ---
07/02/21 at 0200--This patient, Yamilex Ruiz, was admitted to 3 [facility] Surg Room 302-01. Patient/family oriented to hospital policies and general routines including ID bracelet, bed and alarms, visiting hours, pain management, procedures, bathroom and other care routines, personal items, smoking policy, room service/diet, and visiting hours. Information on how to activate the Rapid Response Team has been discussed. Patient/Family are encouraged to report perceived risks to care and to ask questions if they do not understand what they are told or what they should do. TDialRNC
[2021-07-02] MEDS: oxyCODONE/ACETAMINOPHEN (*CRX) 5-325 MG TABLET 1 TABLET PO ×3 (08:36→23:46)
[2021-07-02] MEDS: PANTOPRAZOLE 40 MG TABLET PO (08:38)
[2021-07-02] MEDS: ENOXAPARIN 40 MG/0.4 ML SYRINGE SUB-Q (08:38)
--- NOTE | 2021-07-02 11:42 | PM.PNGS ---
Progress Note: A&P Assessment and Plan (1) Free intraperitoneal air: Code(s): K66.8 - Other specified disorders of peritoneum Status: Acute Assessment and Plan: s/p ex lap, washout, drain placement, doing well, cont drain, ADAT, home tomorrow if leobardo diet Subjective Subjective Date/Time Seen: 07/02/21 11:42 feels much better, just some mild incisional pain, pain at drain site Review of Systems Review of Systems: All systems reviewed & are unremarkable except as noted in HPI and below Exam Const: General: cooperative, comfortable and no acute distress Resp: Effort & Inspection: normal respiratory effort Auscultation: clear to auscultation bilaterally Cardio: Rate: regular rate Rhythm: regular rhythm GI: Inspection: normal to inspection, distended and incision GI Palp: Yes Soft to palpation, Yes Tenderness to palpation present (GI), No Guarding due to palpation present (GI) and No Rigid due to palpation Other: soft, sl dist, nicole TTP, incision C/D/I, JADON c mod s/s output Objective Data Vital Signs Vital Signs: Vital Signs - 24 hr 07/01/21 16:51 07/01/21 21:43 07/01/21 22:40 Temperature 37.5 C Pulse Rate 113 H 82 81 Respiratory Rate 19 16 12 Blood Pressure 120/78 118/77 122/78 Pulse Oximetry 100 100 98 07/02/21 00:47 07/02/21 01:02 07/02/21 01:17 Temperature 36.4 C L Pulse Rate 73 81 92 Respiratory Rate 16 15 15 Blood Pressure 143/87 H 148/75 H 129/82 Pulse Oximetry 99 96 97 07/02/21 01:32 07/02/21 02:00 07/02/21 02:15 Temperature 37.4 C 37.4 C Pulse Rate 88 88 80 Respiratory Rate 17 20 20 Blood Pressure 134/73 132/81 128/73 Pulse Oximetry 95 95 95 07/02/21 02:45 07/02/21 03:45 07/02/21 04:15 Temperature 37.1 C 37.6 C 37.4 C Pulse Rate 97 100 100 Respiratory Rate 18 18 18 Blood Pressure 134/69 133/68 139/75 Pulse Oximetry 95 97 97 07/02/21 05:15 07/02/21 08:00 Temperature 37.4 C 36.7 C Pulse Rate 99 90 Respiratory Rate 18 16 Blood Pressure 141/72 H 137/65 Pulse Oximetry 97 95 Intake/Output Intake/Output: Intake & Output 06/29/21 06/30/21 07/01/21 07/02/21 23:59 23:59 23:59 23:59 Intake Total 1000 1090 Output Total 430 Balance 1000 660 Meds/Results Medications: Active Medications Generic Name Dose Route Start Last Admin Trade Name Freq PRN Reason Stop Dose Admin Hydrocodone Bitart/Acetaminophen 1 tab 07/02/21 00:31 Hydrocodone/Acetaminophen (*Crx) 5-325 Mg Tablet PO Q4H PRN Pain Rated 4-6 Enoxaparin Sodium 40 mg 07/02/21 09:00 07/02/21 08:38 Enoxaparin 40 Mg/0.4 Ml Syringe SUB-Q 40 mg DAILY ERASMO Administration Lactated Ringer's 1,000 mls @ 100 mls/hr 07/02/21 00:35 07/02/21 02:25 Lr - Lactated Ringers Iv IV CONT 100 mls/hr .Q10H ERASMO Administration Ibuprofen 400 mg 07/02/21 00:31 Ibuprofen 400 Mg Tablet PO Q6H PRN Pain Rated 1-3 Morphine Sulfate 4 mg 07/02/21 00:31 07/02/21 06:14 Morphine Sulfate (*Crx) 4 Mg/Ml Inj IV PUSH 4 mg Q2H PRN Administration Pain Rated 7-10 Naloxone HCl 0.1 mg 07/02/21 00:31 Naloxone Hcl 0.4 Mg/Ml Vial IV PUSH Q2M PRN Opiate Reversal Ondansetron HCl 4 mg 07/02/21 00:31 07/02/21 06:17 Ondansetron Inj 4 Mg/2 Ml Vial IV PUSH 4 mg Q4H PRN Administration Nausea And Vomiting Oxycodone/Acetaminophen 1 tablet 07/02/21 00:31 07/02/21 08:36 Oxycodone/Acetaminophen (*Crx) 5-325 Mg Tablet PO 1 tablet Q4H PRN Administration Pain Rated 7-10 Pantoprazole Sodium 40 mg 07/02/21 09:00 07/02/21 08:38 Pantoprazole 40 Mg Tablet PO 40 mg QAM ERASMO Administration Radiology Results: ITS Impressions Abdomen/Pelvis CT 07/01/21 20:32 IMPRESSION: Greater than expected amount of intraperitoneal free air following oophorectomy 4 days ago, [id number] free fluid in the dependent pelvis and to a lesser extent paracolic gutters. Consider hollow viscus rupture. Surgical consult is recommended.
[2021-07-02] MEDS: LORazepam INJ (*CRX) 2 MG/ML VIAL 1 MG IV PUSH (15:36)
[2021-07-02] MEDS: HYDROmorphone HCL INJ (*CRX) 1 MG/ML SYR IV PUSH (15:36)
[2021-07-02] MEDS: HYDROcodone/acetaminophen (*CRX) 5-325 MG TABLET 1 TAB PO (21:11)
[2021-07-03 02:14] VITALS: BP 145/82; PULSE 98; RESP 18; TEMP 36.3; O2SAT 97
[2021-07-03] MEDS: oxyCODONE/ACETAMINOPHEN (*CRX) 5-325 MG TABLET 1 TABLET PO ×3 (05:16→13:03)
[2021-07-03 06:12] LABS: Basophils Absolute Auto 0.1 K/mm3 (0.0-0.1); Basophils Percent Auto 0.3 % (0.2-1.2); Eosinophils Absolute Auto 0.5 K/mm3 (0-0.3); Eosinophils Percent Auto 2.5 % (0-4.4); Hematocrit 34.8 % (37.0-47.0); Hemoglobin 12.1 g/dL (12.0-15.0); Immature Granulocyte Absolute 0.07 K/mm3 (0.00-0.031); Immature Granulocyte Percent A 0.4 % (0-0.5); Lymphocytes Absolute Auto 4.12 K/mm3 (0.9-3.2); Lymphocytes Percent Auto 23.3 % (18.3-44.2); Mean Corpuscular HGB Conc 34.8 g/dl (32-36); Mean Corpuscular Hemoglobin 29.7 pg (26-34); Mean Corpuscular Volume 85.5 fl (80-100); Mean Platelet Volume 10.5 fl (7.4-10.4); Monocytes Absolute Auto 1.6 K/mm3 (0.1-0.6); Neutrophils Absolute Auto 11.4 K/mm3 (1.3-6.7); Neutrophils Percent Auto 64.5 % (45.5-73.1); Platelet Count Result 354 k/mm3 (150-375); Red Blood Count 4.07 M/mm3 (4.2-5.4); Red Cell Distribution Width 12.1 % (11.5-14.5); White Blood Count 17.7 K/mm3 (4.5-10.0)
[2021-07-03 06:29] LABS: Anion Gap 8 mmol/L (8-16); Blood Urea Nitrogen 9 mg/dL (7-17); Calcium 9.2 mg/dL (8.4-10.2); Carbon Dioxide 24 mmol/L (22-30); Chloride 105 mmol/L (98-107); Estimated CRCL calculation 133 ml/min; Estimated Glomerular Filt Rate > 60; Glucose 100 mg/dL (65-110); Potassium 3.5 mmol/L (3.4-5.0); Sodium 137 mmol/L (137-145)
[2021-07-03] MEDS: ENOXAPARIN 40 MG/0.4 ML SYRINGE SUB-Q (09:13)
[2021-07-03] MEDS: PANTOPRAZOLE 40 MG TABLET PO (09:13)
[2021-07-03] MEDS: LORazepam INJ (*CRX) 2 MG/ML VIAL 1 MG IV PUSH (09:23)
--- NOTE | 2021-07-03 13:18 | PM.DS ---
DS: Admitting Diagnosis Admitting Diagnosis Free intraperitoneal air DS: Discharge Diagnosis Discharge Diagnosis (1) Free intraperitoneal air: Code(s): K66.8 - Other specified disorders of peritoneum Status: Acute (2) Post-op pain: Code(s): G89.18 - Other acute postprocedural pain Status: Acute DS: Summary Hospital Course Reason for hospitalization: Free intraperitoneal air after recent laparoscopic right oophorectomy Hospital Course: This is a 35-year-old woman who presented to the emergency department 07/01/2021. She was having severe postoperative abdominal pain after undergoing laparoscopic right oophorectomy, bilateral salpingectomy and excision and cauterization of endometriosis by Dr. Kruger 06/28/2021. CT in the emergency department showed large amount of free air and free fluid concerning for perforated hollow viscus. She also had peritoneal signs. She was taken emergently for exploratory laparotomy on 07/01. There was free air and free pelvic fluid identified on exploration, but no clear sign of perforation or abscess. A drain was placed at that time and she was admitted for further recovery. On postop day 1 she was slowly improving and tolerating a diet. She was remaining hemodynamically stable in the JADON drain appeared serosanguineous. On postop day 2 she was passing flatus and tolerating a regular diet. She was mostly complaining of pain at the drain site. Her white blood count did go up to 17 K, but she was afebrile and showing no other signs of infection. She was discharged home on postop day 2. Status at Discharge Functional status at discharge: independent ambulation Overall status at discharge: patient is progressing back to baseline Time Spent with Patient Time attestation: Total time spent providing and/or coordinating discharge services: Time spent: Less than 30 minutes Exam Const: General: cooperative and no acute distress Orientation/consciousness: patient oriented x3 Limitations: no limitations GI: Inspection: non-distended and incision (Clean/dry/intact) GI Palp: Yes Soft to palpation, Yes Tenderness to palpation present (GI) (Incisional and around drain), No Guarding due to palpation present (GI) and No Rebound tenderness present Auscultation: normal bowel sounds DS: Data Data Completed and Pending Labs on day of discharge: Labs from last 24 hours 07/03/21 07/03/21 05:55 05:55 WBC 17.7 H RBC 4.07 L Hgb 12.1 Hct 34.8 L MCV 85.5 MCH 29.7 MCHC 34.8 RDW 12.1 Plt Count 354 MPV 10.5 H Immature Gran % (Auto) 0.4 Neut % (Auto) 64.5 Lymph % (Auto) 23.3 [place] % (Auto) 9.0 H Eos % (Auto) 2.5 Baso % (Auto) 0.3 Lymph # (Auto) 4.12 H [place] # (Auto) 1.6 H Eos # (Auto) 0.5 H Baso # (Auto) 0.1 Abs Immat Gran (auto) 0.07 H Absolute Neuts (auto) 11.4 H Absolute Nucleated RBC 0.0 Nucleated RBC % 0.0 Sodium 137 Potassium 3.5 Chloride 105 Carbon Dioxide 24 Anion Gap 8 BUN 9 Creatinine 0.40 L Estim Creat Clear Calc 133 Estimated GFR > 60 Glucose 100 Calcium 9.2 Imaging Radiologist's impression: ITS Impressions Abdomen/Pelvis CT 07/01/21 20:32 IMPRESSION: Greater than expected amount of intraperitoneal free air following oophorectomy 4 days ago, [id number] free fluid in the dependent pelvis and to a lesser extent paracolic gutters. Consider hollow viscus rupture. Surgical consult is recommended. Discharge Plan Discharge Attending physician on discharge: Maryuri Berry Discharging Clinician: Kishore Dumont Patient Disposition: Home, Self-Care Activity: other - see discharge instructions Diet: regular Wound Care Instructions: follow printed instructions Discharge Instructions: May remove bandage over drain site and shower tomorrow Reapply bandage as needed for any wound opening or drainage No lifting greater than 10 lb Ambulate frequently around the house, hi
== END 2021-07-03 14:40 | disposition home or self-care (01) | DRG 337 ==
LOC: ANHED 22:14 → ANHSURGERY 22:33 → ANH3MEDSUR 07-02 04:05
PROVIDERS: Physician Assistant; Admitting Provider Surgery; Emergency Provider Emergency Medicine; PCP Emergency Medicine; Visit Provider Surgery
PROC: (CPT 49000; principal; 2021-07-01 23:30)
DX: K66.8 Other specified disorders of peritoneum (principal); G89.18 Other acute postprocedural pain; Z90.721 Acquired absence of ovaries, unilateral; D25.9 Leiomyoma of uterus, unspecified; F41.9 Anxiety disorder, unspecified; L93.0 Discoid lupus erythematosus; N80.9 Endometriosis, unspecified; F17.210 Nicotine dependence, cigarettes, uncomplicated; Z90.49 Acquired absence of other specified parts of digestive tract; K66.0 Peritoneal adhesions (postprocedural) (postinfection)
CPT/HCPCS: 36415; 74177; 80048; 80053; 81003; 83690; 85025; 96361; 96365; 96367; 96375; 96376; 99285; A9270; J0330; J0690; J1100; J1170; J1650; J2060; J2250; J2270; J2405; J2550; J2704; J2710; J3010; J7120; Q9967

== ENCOUNTER → 2022-08-08 09:49 | Outpatient (CLI) | payer BC, SELFPAY ==
--- NOTE | ~2022-08-08 | US_ITS ---
US abdomen complete EXAMINATION: US Abdomen Complete INDICATION: Bloating. Generalized abdominal pain. PROCEDURE: Realtime High Resolution abdomen ultrasound. COMPARISON: No prior studies for comparison FINDINGS: Gallbladder within normal limits. No gallstones, pericholecystic fluid, gallbladder wall t hickening or biliary dilatation. Common bile duct measures 2.5 mm. Liver echotexture within normal limits without focal mass. Pancreas within normal limits. Pancreati c tail is obscured by bowel gas. Spleen is unremarkeable. Renal echotexture is within normal limits bilaterally without hydronephrosis, contour deforming mass or renal stone. Right kidney measures 10.5 cm. Left kidney measures 10.5 cm. Visualized aspects of the aorta and IVC are within normal limits. Portal vein is patent. No sonograph ic Moran's sign indicated by the technologist. IMPRESSION: 1: Normal abdominal ultrasound. Reviewed, dictated and finalized at location A.
== END ==
PROVIDERS: PCP Emergency Medicine; Visit Provider Emergency Medicine
DX: R10.84 Generalized abdominal pain (principal)
CPT/HCPCS: 76700

== ENCOUNTER 2022-09-07 02:14 | Day surgery (SDC) | payer BC, SELFPAY ==
[2022-08-25 11:47] VITALS: BMI 21.0
[2022-09-07 06:10] VITALS: BP 123/87; PULSE 86; RESP 18; TEMP 36.4; O2SAT 100; BMI 22.4
[2022-09-07] MEDS: LACTATED RINGERS 1,000 ML 150 ML IV CONT (06:35)
--- NOTE | 2022-09-07 07:23 | WPDANESEPPF ---
Anes - Initial Pre Proc Eval Procedure: Operation Date: 09/07/22 07:30 Proposed Procedures p Esophagogastroduodenoscopy & Colonoscopy - Osbaldo Gloria MD Date/Time: 09/07/22 07:23 Surgeon: Osbaldo Gloria MD Pre Op Diagnosis: occult GI bleed Patient Data Age: 37 Gender: F Height: 1.6 m Weight: 57.3 kg Last Vital Signs Temp 97.5 F L 09/07/22 06:10 Pulse 86 09/07/22 06:10 Resp 18 09/07/22 06:10 BP 123/87 09/07/22 06:10 Pulse Ox 100 09/07/22 06:10 O2 Del Method Room Air 09/07/22 06:10 Allergies Allergy/AdvReac Type Severity Reaction Status Date / Time No Known Allergies Allergy Verified 09/07/22 06:25 Home Medications Medication Instructions Recorded Confirmed Type alprazolam 0.5 mg tablet (Xanax) 0.5 mg PO QHS PRN anxiety 05/31/21 09/07/22 History hydroxychloroquine 200 mg tablet 200 mg PO DAILY 06/23/21 09/07/22 History (Plaquenil) cholecalciferol (vitamin D3) 50 50 mcg PO DAILY 07/09/21 09/07/22 History mcg (2,000 unit) capsule escitalopram oxalate 10 mg tablet 20 mg PO DAILY 07/09/21 09/07/22 History (Lexapro) estradiol-norethindrone acet 1 2 tablet PO DAILY #168 tabs 07/26/21 09/07/22 Rx mg-0.5 mg tablet meloxicam 15 mg tablet 15 mg PO DAILY 06/02/22 09/07/22 History rituximab 10 mg/mL 10 mg IV Q4-6M 08/25/22 09/07/22 History concentrate,intravenous (Rituxan) Patient hx anesthesia problems: none Family hx anesthesia problems: none Results Review: All pre-operative results and documents have been reviewed as part of the pre-operative evaluation. [facility] Past Medical History Medical History Anxiety Bilateral ankle fractures Discoid lupus just skin Endometriosis HSV (herpes simplex virus) infection Migraine Right wrist fracture Surgical History Surgical History H/O exploratory laparotomy exploratory laparotomy, lysis of adhesions, washout, placement of pelvic drain History of bilateral salpingectomy 06/28/21 History of endometrial ablation 2018? History of laparoscopy 9 on ovaries and 3 on right knee History of left oophorectomy History of right oophorectomy 06/28/21, with excision and cauterization of endometriosis Hx of abdominal surgery 07/02/21, Exploratory laparoscopy, lysis of adhesions, wash out, pelvic drain Hx of appendectomy Hx of right knee surgery x3 [employer] teeth extracted Family History Family History Father Hypertension Diabetes mellitus Heart problem Mother Hypertension Asthma Anxiety Depression Cerebrovascular accident Other Family history of arthritis Family history of migraine headaches Social History Social History Smoking packs per day: 0.5 Smoking cigarettes per day: 10.0 Years smoked: 20 Smoking pack-years: 10.00 Smoking status: Current every day smoker Tobacco type: cigarettes Smoking end date: 11/06/15 Alcohol intake: current Drinks per week: 4 Alcohol use details: SOCIAL Substance use: never Substance use type: does not use Living arrangements: with family Spiritual care concerns: No Anes - Eval Final PreProcedure Day of Procedure 09/07/22 07:23 Patient weight: normal Heart: regular rate and rhythm Lungs: clear to auscultation Airway: Mallampati scale class II Neurological: alert and oriented Last oral intake: >/= 8 hours ASA classification: III Emergent: no Anesthetic plan: proceed Anesthesia type and monitoring: general GIVS and standard monitoring Results Review: All pre-operative results and documents have been reviewed as part of the pre-operative evaluation. Informed Consent: The patient's anesthetic plan and its attendant risks and benefits were discussed with the patient/family/POA. Questions w
--- NOTE | 2022-09-07 07:24 | PM.HPGS ---
History of Present Illness History of Present Illness Consent: Risks, benefits, and alternatives have been discussed and questions answered. Patient agrees to proceed with procedure. Chief complaint: occult GI bleed Narrative: Yamilex Ruiz is a 37 year old female with intermittent abdominal pain, also had FOBT +, never had scopes Review of Systems Constitutional: Constitutional: Denies headache(s) and Denies weakness Eyes: Eyes: Denies blurry vision ENT: Reports Normal hearing present, Denies headache(s) and Denies neck pain Cardiovascular: Cardiovascular: Denies chest pain and Denies dyspnea Respiratory: Respiratory: Denies dyspnea Gastrointestinal: Gastrointestinal: Reports no additional gastrointestinal complaints Genitourinary: Genitourinary: Denies dysuria Musculoskeletal: Musculoskeletal: Denies neck pain Integumentary/Breasts: Skin/Breast: Denies dry skin Neurologic: Reports Normal hearing present, Denies headache(s) and Denies weakness Psychiatric: Psychiatric: Denies anxiety Endocrine: Endocrine: Denies change in body appearance Hematologic/Lymphatic: Hematologic/Lymphatic: Denies easy bleeding Allergic/Immunologic: Allergic/Immunologic: Denies urticaria PMFSH Past Medical History Medical History (Updated 09/07/22 @ 07:25 by Osbaldo Gloria MD) Abdominal pain Anxiety Bilateral ankle fractures Discoid lupus just skin Endometriosis HSV (herpes simplex virus) infection Migraine Occult blood in stools Right wrist fracture Surgical History Surgical History H/O exploratory laparotomy exploratory laparotomy, lysis of adhesions, washout, placement of pelvic drain History of bilateral salpingectomy 06/28/21 History of endometrial ablation 2018? History of laparoscopy 9 on ovaries and 3 on right knee History of left oophorectomy History of right oophorectomy 06/28/21, with excision and cauterization of endometriosis Hx of abdominal surgery 07/02/21, Exploratory laparoscopy, lysis of adhesions, wash out, pelvic drain Hx of appendectomy Hx of right knee surgery x3 [place] teeth extracted Family History Family History Father Hypertension Diabetes mellitus Heart problem Mother Hypertension Asthma Anxiety Depression Cerebrovascular accident Other Family history of arthritis Family history of migraine headaches Social History Social History Smoking packs per day: 0.5 Smoking cigarettes per day: 10.0 Years smoked: 20 Smoking pack-years: 10.00 Smoking status: Current every day smoker Tobacco type: cigarettes Smoking end date: 11/06/15 Alcohol intake: current Drinks per week: 4 Alcohol use details: SOCIAL Substance use: never Substance use type: does not use Living arrangements: with family Spiritual care concerns: No Meds Home Medications and Allergies Home Medications Medication Instructions Recorded Confirmed Type alprazolam 0.5 mg tablet (Xanax) 0.5 mg PO QHS PRN anxiety 05/31/21 09/07/22 History hydroxychloroquine 200 mg tablet 200 mg PO DAILY 06/23/21 09/07/22 History (Plaquenil) cholecalciferol (vitamin D3) 50 50 mcg PO DAILY 07/09/21 09/07/22 History mcg (2,000 unit) capsule escitalopram oxalate 10 mg tablet 20 mg PO DAILY 07/09/21 09/07/22 History (Lexapro) estradiol-norethindrone acet 1 2 tablet PO DAILY #168 tabs 07/26/21 09/07/22 Rx mg-0.5 mg tablet meloxicam 15 mg tablet 15 mg PO DAILY 06/02/22 09/07/22 History rituximab 10 mg/mL 10 mg IV Q4-6M 08/25/22 09/07/22 History concentrate,intravenous (Rituxan) Allergies Allergy/AdvReac Type Severity Reaction Status Date / Time No Known Allergies Allergy Verified 09/07/22 06:25 Vital Signs Vital Signs - 24 hr 09/07/22 06:10 Temperature 97.5 F L Pulse Rate 86
--- NOTE | 2022-09-07 07:47 | SUR.OPER ---
EGD ENDED 740, COLONOSCOPY STARTED 745
[2022-09-07 07:59] VITALS: BP 108/68; PULSE 77; RESP 17; O2SAT 94
[2022-09-07 08:09] VITALS: BP 106/73; PULSE 71; RESP 14; O2SAT 94
[2022-09-07 08:19] VITALS: BP 103/70; PULSE 71; RESP 18; O2SAT 100
== END 2022-09-07 08:26 | disposition home or self-care (01) ==
PROVIDERS: PCP Emergency Medicine; Visit Provider Internal Medicine Gastroenterology
PROC: 0DJ08ZZ Inspection of Upper Intestinal Tract, Via Natural or Artificial Opening Endoscopic (ICD-10-PCS; CPT 43235; principal; 2022-09-07 07:30)
DX: R19.5 Other fecal abnormalities (principal); R10.9 Unspecified abdominal pain; K64.8 Other hemorrhoids; K29.50 Unspecified chronic gastritis without bleeding; L93.0 Discoid lupus erythematosus; B00.9 Herpesviral infection, unspecified; F41.9 Anxiety disorder, unspecified; F17.210 Nicotine dependence, cigarettes, uncomplicated
CPT/HCPCS: 45378; 43239; 88305; J2704; J7120

== ENCOUNTER 2022-10-20 16:23 | Emergency (ER) | payer BC, SELFPAY ==
[2022-10-20 16:24] VITALS: BP 118/83; PULSE 104; RESP 20; TEMP 36.9; O2SAT 95
--- NOTE | 2022-10-20 17:04 | ED.GENADULT ---
HPI - General Adult General Chief complaint: Upper Respiratory Infection Stated complaint: vomiting, cough, congestion, bodyaches Time Seen by Provider: 10/20/22 16:40 History of Present Illness HPI narrative: 37-year-old female with past medical history of lupus presents to our department for evaluation of fever, vomiting, cough, body aches. She saw a telemedicine doctor who felt she may have had the flu. He prescribed her a Z-Jeff and Tamiflu. She is not feeling any better. Related Data Home Medications Medication Instructions Recorded Confirmed alprazolam 0.5 mg tablet (Xanax) 0.5 mg PO QHS PRN anxiety 05/31/21 09/07/22 hydroxychloroquine 200 mg tablet 200 mg PO DAILY 06/23/21 09/07/22 (Plaquenil) cholecalciferol (vitamin D3) 50 50 mcg PO DAILY 07/09/21 09/07/22 mcg (2,000 unit) capsule escitalopram oxalate 10 mg tablet 20 mg PO DAILY 07/09/21 09/07/22 (Lexapro) meloxicam 15 mg tablet 15 mg PO DAILY 06/02/22 09/07/22 rituximab 10 mg/mL 10 mg IV Q4-6M 08/25/22 09/07/22 concentrate,intravenous (Rituxan) Allergies Allergy/AdvReac Type Severity Reaction Status Date / Time No Known Allergies Allergy Verified 09/07/22 06:25 Review of Systems Review of Systems: CONSTITUTIONAL: Denies fever, chills, or sweats. EYES: Denies visual changes, redness, or discharge. ENT: Denies rhinorrhea, congestion, sore throat, or otalgia. CARDIOVASCULAR: Denies chest pain, palpitations, or edema. RESPIRATORY: Denies cough or dyspnea. GASTROINTESTINAL: Denies abdominal pain, nausea, vomiting, or diarrhea. GENITOURINARY: Denies dysuria or hematuria. SKIN: Denies rash or itching. MUSCULOSKELETAL: Denies back pain, joint pain, or myalgia. NEUROLOGIC: Denies headache, numbness, or weakness. PSYCHIATRIC: Denies anxiety or depression. [facility] Past Medical History Medical History (Updated 10/21/22 @ 00:00 by Background Daemon) Abdominal pain Anxiety Bilateral ankle fractures Discoid lupus just skin Endometriosis HSV (herpes simplex virus) infection Migraine Occult blood in stools Right wrist fracture Surgical History Surgical History H/O exploratory laparotomy exploratory laparotomy, lysis of adhesions, washout, placement of pelvic drain History of bilateral salpingectomy 06/28/21 History of endometrial ablation 2018? History of laparoscopy 9 on ovaries and 3 on right knee History of left oophorectomy History of right oophorectomy 06/28/21, with excision and cauterization of endometriosis Hx of abdominal surgery 07/02/21, Exploratory laparoscopy, lysis of adhesions, wash out, pelvic drain Hx of appendectomy Hx of right knee surgery x3 [place] teeth extracted Family History Family History Father Hypertension Diabetes mellitus Heart problem Mother Hypertension Asthma Anxiety Depression Cerebrovascular accident Other Family history of arthritis Family history of migraine headaches Social History Social History Smoking packs per day: 0.5 Smoking cigarettes per day: 10.0 Years smoked: 20 Smoking pack-years: 10.00 Smoking status: Current every day smoker Tobacco type: cigarettes Smoking end date: 11/06/15 Alcohol intake: current Drinks per week: 4 Alcohol use details: SOCIAL Substance use: never Substance use type: does not use Spiritual care concerns: No Exam Narrative: GENERAL: Well-appearing, well-nourished, and in no acute distress. HEAD: Normocephalic, atraumatic. EYES: PERRLA and EOMI. ENT: Nares clear, no rhinorrhea or epistaxis. Mucous membranes moist. NECK: Supple. CHEST: Clear to auscultation. No respiratory distress. HEART: Regular rate and rhythm. No murmur heard. Normal peripheral pulses. ABDOMEN: Soft, nontender, nondistended, normal active bowel sounds. EXTREMITIES: Normal range of
[2022-10-20] MEDS: diphenhydrAMINE HCl INJ 50 MG/ML VIAL 25 MG IV PUSH (17:13)
[2022-10-20] MEDS: ONDANSETRON INJ 4 MG/2 ML VIAL IV PUSH (17:13)
[2022-10-20] MEDS: LACTATED RINGERS 1,000 ML 999 ML IV CONT (17:14)
[2022-10-20 17:16] LABS: Influenza A QL RT-PCR Positive (Negative); Influenza B QL RT-PCR Negative (Negative); SARS-CoV-2 RNA PCR Negative
[2022-10-20] MEDS: KETOROLAC 15 MG/ML VIAL (*BKC) IV PUSH (17:27)
[2022-10-20 18:21] VITALS: BP 120/81; PULSE 74; RESP 19; O2SAT 98
== END 2022-10-20 19:02 | disposition home or self-care (01) ==
PROVIDERS: Nurse Practitioner Family; Emergency Provider Emergency Medicine; PCP Emergency Medicine
DX: J10.1 Influenza due to other identified influenza virus with other respiratory manifestations (principal); L93.0 Discoid lupus erythematosus; N80.9 Endometriosis, unspecified; F41.9 Anxiety disorder, unspecified; Z90.79 Acquired absence of other genital organ(s); Z90.722 Acquired absence of ovaries, bilateral; Z87.891 Personal history of nicotine dependence
CPT/HCPCS: 87636; 96374; 96375; 99284; J1200; J1885; J2405; J7120

== ENCOUNTER 2023-01-11 13:34 | Outpatient (CLI) | payer BC, SELFPAY ==
--- NOTE | ~2023-01-11 | US_ITS ---
EXAMINATION: US pelvic complete w TV DATE: 01/11/2023 13:57 INDICATION: Pelvic and perineal pain. TECHNIQUE: Multiple transabdominal and transvaginal sonographic images of the pelvis were obtained. COMPARISON: CT abdomen and pelvis 07/01/2021 FINDINGS: TRANSABDOMINAL ULTRASOUND: The uterus measures 7.4 x 3.6 x 3.0 cm. There is no free fluid in the pelvis. TRANSVAGINAL ULTRASOUND: The endometrial complex measures 4 mm in thickness. There is a 3.1 cm intramural fibroid. There is a 1.1 cm subserosal fibroid. The ovaries are not visualized and are reportedly absent. IMPRESSION: 1. Uterine fibroids. Reviewed, dictated and finalized at location A. [facility] SPECIALIST IMPRESSION: 1. Uterine fibroids.
== END 2023-01-11 13:35 ==
LOC: GOSHIMG 13:34
PROVIDERS: PCP Internal Medicine; Visit Provider Obstetrics & Gynecology
DX: R10.2 Pelvic and perineal pain (principal); D25.9 Leiomyoma of uterus, unspecified
CPT/HCPCS: 76830; 76856

== ENCOUNTER 2023-01-30 14:09 | Outpatient (CLI) | payer BC, SELFPAY ==
--- NOTE | ~2023-01-30 | XR_ITS ---
XR lumbar spine 2-3V DATE: 01/30/2023 14:29 INDICATION: Back pain TECHNIQUE: AP, lateral, coned lateral lumbosacral views COMPARISON: None FINDINGS: There is a transitional first sacral vertebra with sacralization pseudoarthrosis on the lef t and lumbarization on the right. This may be a source of chronic low back pain. Normal alignment of the lumbar spine. No fracture or bone destruction or spondylolisthesis. There is minimal degenerative disc disease; the lumbar and lumbosacral interspaces appear well preser dulce. No fracture or bone destruction. Included lower thoracic and lumbar pedicles are intact. The sac roiliac joints are normal. 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 IMPRESSION: Transitional lumbosacral vertebra with sacralization and pseudoarth rosis on the left Minimal degenerative disc disease
== END 2023-01-30 14:10 | disposition home or self-care (01) ==
PROVIDERS: PCP Internal Medicine; Visit Provider Internal Medicine
DX: M54.50 Low back pain, unspecified (principal); G89.29 Other chronic pain
CPT/HCPCS: 72100

== ENCOUNTER 2023-01-31 10:44 | Outpatient (CLI) | payer BC, SELFPAY ==
[2023-01-31 11:09] LABS: Basophils Absolute Auto 0.1 K/mm3 (0.0-0.1); Basophils Percent Auto 0.9 % (0.2-1.2); Eosinophils Absolute Auto 0.2 K/mm3 (0-0.3); Eosinophils Percent Auto 2.1 % (0-4.4); Hematocrit 41.3 % (37.0-47.0); Hemoglobin 14.1 g/dL (12.0-15.0); Immature Granulocyte Absolute 0.05 K/mm3 (0.00-0.031); Immature Granulocyte Percent A 0.4 % (0-0.5); Lymphocytes Absolute Auto 2.81 K/mm3 (0.9-3.2); Lymphocytes Percent Auto 24.5 % (18.3-44.2); Mean Corpuscular HGB Conc 34.1 g/dl (32-36); Mean Corpuscular Hemoglobin 30.9 pg (26-34); Mean Corpuscular Volume 90.4 fl (80-100); Mean Platelet Volume 9.7 fl (7.4-10.4); Monocytes Absolute Auto 0.7 K/mm3 (0.1-0.6); Monocytes Percent Auto 5.7 % (2.6-8.5); Neutrophils Absolute Auto 7.6 K/mm3 (1.3-6.7); Neutrophils Percent Auto 66.4 % (45.5-73.1); Platelet Count Result 478 k/mm3 (150-375); Red Blood Count 4.57 M/mm3 (4.2-5.4); White Blood Count 11.5 K/mm3 (4.5-10.0)
[2023-01-31 11:20] LABS: Alanine Aminotransferase 24 U/L (6-35); Albumin Level 4.6 g/dL (3.5-5.1); Alkaline Phosphatase 95 U/L (38-126); Anion Gap 5 mmol/L (8-16); Aspartate Amino Transferase 28 U/L (14-36); Bilirubin,Total 0.5 mg/dL (0.2-1.3); Blood Urea Nitrogen 14 mg/dL (7-17); Calcium 9.4 mg/dL (8.4-10.2); Carbon Dioxide 30 mmol/L (22-30); Chloride 105 mmol/L (98-107); Cholesterol 239 mg/dL (0-200); Estimated Glomerular Filt Rate > 60; Glucose 94 mg/dL (65-110); HDL Direct 79 mg/dL; Potassium 4.3 mmol/L (3.4-5.0); Sodium 140 mmol/L (137-145); Triglycerides 115 mg/dL (<150)
[2023-01-31 11:31] LABS: LDL Cholesterol Direct 115 mg/dL
[2023-01-31 11:51] LABS: Thyroid Stimulating Hormone 0.161 uIU/mL (0.465-4.680)
== END 2023-01-31 10:45 | disposition home or self-care (01) ==
PROVIDERS: PCP Internal Medicine; Visit Provider Internal Medicine
DX: Z00.00 Encounter for general adult medical examination without abnormal findings (principal)
CPT/HCPCS: 36415; 80053; 80061; 84443; 85025

== ENCOUNTER 2023-03-03 21:14 | Emergency (ER) | payer BC, SELFPAY ==
--- NOTE | ~2023-03-03 | XR_ITS ---
EXAMINATION: XR finger 5th RT min 2V INDICATION: Right fifth finger pain TECHNIQUE: Three views of the right fifth finger are obtained. COMPARISON: None available FINDINGS: Bone alignment is normal. There is no fracture. The joint spaces are maintained. There appe ars to be a soft tissue laceration at the palmar aspect of the finger. No radiopaque foreign body is identified. IMPRESSION: 1. Possible laceration without acute osseous abnormality or radiopaque foreign body identified. Reviewed, dictated and finalized at location A.
[2023-03-03 21:33] VITALS: BP 125/104; PULSE 104; RESP 20; TEMP 36.1; O2SAT 99
[2023-03-04 00:34] VITALS: BP 130/87; PULSE 74; RESP 14; O2SAT 97
[2023-03-04] MEDS: TETANUS,DIPHTHERIA,AC PERTUSSIS ADULT (0.5 ML) BOOSTRIX IM (00:53)
--- NOTE | 2023-03-04 01:20 | ED.WOUNDLAC ---
HPI - Wound/Laceration General Chief Complaint: Wound/Laceration Stated Complaint: right pinky laceration Time Seen by Provider: 03/04/23 00:22 History of Present Illness HPI narrative: This is a 37-year-old female, with past medical history of anxiety, and rheumatoid arthritis, who presents the emergency department with a laceration of the right fifth finger. 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 She rates her pain 5/10. She has no other complaints today. Related Data Home Medications Medication Instructions Recorded Confirmed alprazolam 0.5 mg tablet (Xanax) 0.5 mg PO QHS PRN anxiety 05/31/21 01/30/23 meloxicam 15 mg tablet 15 mg PO DAILY 06/02/22 01/30/23 rituximab 10 mg/mL 10 mg IV Q4-6M 08/25/22 01/30/23 concentrate,intravenous (Rituxan) cyclobenzaprine 10 mg tablet 10 mg PO TID PRN 01/30/23 01/30/23 hydroxychloroquine 200 mg tablet 300 mg PO DAILY 01/30/23 01/30/23 (Plaquenil) prednisone 5 mg tablet 5 mg PO DIRECTED 01/30/23 01/30/23 Allergies Allergy/AdvReac Type Severity Reaction Status Date / Time No Known Allergies Allergy Verified 03/03/23 21:15 Review of Systems Review of Systems: CONSTITUTIONAL: Denies fever, chills, or sweats. CARDIOVASCULAR: Denies chest pain, palpitations, or edema. RESPIRATORY: Denies cough or dyspnea. GASTROINTESTINAL: Denies abdominal pain, nausea, vomiting, or diarrhea. SKIN: Laceration of the right fifth finger Denies rash or itching. MUSCULOSKELETAL: Right fifth finger pain Denies back pain, joint pain, or myalgia. NEUROLOGIC: Denies headache numbness, dizziness, or weakness. [facility] Past Medical History Medical History Abdominal pain Anxiety Bilateral ankle fractures Discoid lupus just skin Endometriosis HSV (herpes simplex virus) infection Migraine Occult blood in stools Right wrist fracture Surgical History Surgical History H/O exploratory laparotomy exploratory laparotomy, lysis of adhesions, washout, placement of pelvic drain History of bilateral salpingectomy 06/28/21 History of endometrial ablation 2018? History of laparoscopy 9 on ovaries and 3 on right knee History of left oophorectomy History of right oophorectomy 06/28/21, with excision and cauterization of endometriosis Hx of abdominal surgery 07/02/21, Exploratory laparoscopy, lysis of adhesions, wash out, pelvic drain Hx of appendectomy Hx of right knee surgery x3 [place] teeth extracted Family History Family History Father Hypertension Diabetes mellitus Heart problem Mother Hypertension Asthma Anxiety Depression Cerebrovascular accident Other Family history of arthritis Family history of migraine headaches Social History Social History Smoking packs per day: 0.5 Smoking cigarettes per day: 10.0 Years smoked: 20 Smoking pack-years: 10.00 Smoking status: Current every day smoker Tobacco type: cigarettes Smoking end date: 11/06/15 Alcohol intake: current Drinks per week: 4 Alcohol use details: SOCIAL Substance use: never Substance use type: does not use Lack of Transportation: No Lack of Food: Never True Current Housing: I Have Housing Concerned About Future Housing: No Difficulty Paying Gas/Electric Bills: No Difficulty Paying for Meds: No Currently Unemployed: No Education: High School Diploma/GED Difficulty w/ Childcare or Family Care: No Living arrangements: with family Spiritual care concerns: No Exam Narrative: GENERAL: Well-appearing, well-nourished, and in no acute distress. HEAD: Normocephalic, atraumatic. EYES: PERRLA and EOMI. CHEST: Clear to auscultation. No respiratory distress. No wheezes rales or rhonchi HEART: Regular rate and rhythm. No m
== END 2023-03-04 02:10 | disposition home or self-care (01) ==
PROVIDERS: Emergency Provider Preventive Medicine Aerospace Medicine; PCP Internal Medicine
DX: S61.216A Laceration without foreign body of right little finger without damage to nail, initial encounter (principal); Z23 Encounter for immunization; M06.9 Rheumatoid arthritis, unspecified; L93.0 Discoid lupus erythematosus; N80.9 Endometriosis, unspecified; F41.9 Anxiety disorder, unspecified; Z87.891 Personal history of nicotine dependence; Z90.79 Acquired absence of other genital organ(s); Z90.722 Acquired absence of ovaries, bilateral; W25.XXXA Contact with sharp glass, initial encounter
CPT/HCPCS: 12001; 73140; 90471; 90715; 99283

== ENCOUNTER 2023-06-19 07:20 | Outpatient (CLI) | payer BC, SELFPAY ==
[2023-06-19 08:41] LABS: Thyroid Stimulating Hormone 0.849 uIU/mL (0.465-4.680)
[2023-06-19 09:01] LABS: Free T4 Free Thyroxine 0.97 ng/mL (0.78-2.19)
[2023-06-23 05:19] LABS: Thyroglobulin 56.3 ng/mL (2.8-40.9); Thyroglobulin Antibodies <1 IU/mL (<=1)
== END 2023-06-19 07:21 | disposition home or self-care (01) ==
PROVIDERS: PCP Internal Medicine; Visit Provider Internal Medicine
DX: E05.90 Thyrotoxicosis, unspecified without thyrotoxic crisis or storm (principal)
CPT/HCPCS: 36415; 84432; 84439; 84443; 86800

== ENCOUNTER 2023-08-04 01:44 | Day surgery (SDC) | payer BC, SELFPAY ==
[2023-07-27 14:39] VITALS: BMI 26.5
--- NOTE | 2023-07-27 14:58 | PC.NURSE ---
Report to the Outpatient Waiting Room, entrance under the green pavilion located off [facility], at time _1130__ on date 08/04/23__. Planned Procedure Time: 1330__. Time changes happen often and if your time is changed the preop area will call you the afternoon before. - You and your visitor will be asked to self-screen and do not enter if you have any COVID symptoms. - A mask is optional within the hospital at this time. Patients may have clear liquids (water, carbonated beverages, clear teas, apple juice) until 3 hours prior to surgery with a maximum of 20 ounces. - No food from midnight until time of surgery. Take the following medications with a SIP of water the morning of surgery: ALPRAZOLAM, ESCITALOPRAM___ DO NOT STOP ANY OF YOUR OTHER PRESCRIPTION MEDICATIONS PRIOR TO SURGERY ?EXCEPT THE FOLLOWING Medications to discontinue per physician CELEBREX Date to take last dose__07/28/23 Please no make-up, nail sri [place]ankan, hairspray, perfume, deodorant, or body powder the day of surgery. No jewelry (including any body piercings) or valuables the day of surgery, leave them at home. Please take a shower or bath the night before, or the morning of, surgery with an antibacterial soap. Wear comfortable, loose fitting clothing. - Jewelry must be removed prior to entering the operating room. Rings and piercings that are not removed may be cut off. - The hospital will not accept responsibility for valuables. - Please leave all valuables, including medications, at home the day of surgery. If you are going home after surgery, a licensed river driver must drive you home. - NO public transportation without another adult if you receive anesthesia. - We recommend that an adult stay with you for 24 hours following discharge. - We also recommend that you do not drive, make important decision, drink alcoholic beverages, or take any drugs that were not prescribed by your health care provider for at least 24 hours after your discharge time. Follow any additional instructions given to you from your surgeon. If you or anyone in your household have experienced Covid symptoms in the past week, please notify your surgeon or the nurse liaison at the phone number below for possible testing. Telephone instructions given to _NORMA_and asked if any additional questions and then verbalized understanding. Patient advised to call surgeon office or pre surgery nurse liaison [phone] if any additional questions.
--- NOTE | 2023-08-03 17:44 | PM.IMHP ---
H&P: HPI History of Present Illness Date/Time: 08/03/23 17:44 Chief Complaint: Recurrent otitis media chronic otitis media Narrative: planned procedure Review of Systems Review of Systems: All systems reviewed & are unremarkable except as noted in HPI and below PMFSH Past Medical History Medical History Abdominal pain Anxiety Bilateral ankle fractures Discoid lupus just skin Endometriosis HSV (herpes simplex virus) infection Migraine Occult blood in stools Right wrist fracture Surgical History Surgical History H/O exploratory laparotomy exploratory laparotomy, lysis of adhesions, washout, placement of pelvic drain History of bilateral salpingectomy 06/28/21 History of endometrial ablation 2018? History of laparoscopy 9 on ovaries and 3 on right knee History of left oophorectomy History of right oophorectomy 06/28/21, with excision and cauterization of endometriosis Hx of abdominal surgery 07/02/21, Exploratory laparoscopy, lysis of adhesions, wash out, pelvic drain Hx of appendectomy Hx of right knee surgery x3 [place] teeth extracted Family History Family History Father Hypertension Diabetes mellitus Heart problem Mother Hypertension Asthma Anxiety Depression Cerebrovascular accident Other Family history of arthritis Family history of migraine headaches Social History Social History Smoking packs per day: 0.25 Smoking cigarettes per day: 5.0 Years smoked: 20 Smoking pack-years: 5.00 Smoking status: Current every day smoker Tobacco type: cigarettes Smoking end date: 11/06/15 Alcohol intake: current Drinks per week: 4 Alcohol use details: SOCIAL Substance use: never Substance use type: does not use Lack of Transportation: No Lack of Food: Never True Current Housing: I Have Housing Concerned About Future Housing: No Difficulty Paying Gas/Electric Bills: No Difficulty Paying for Meds: No Currently Unemployed: No Education: High School Diploma/GED Difficulty w/ Childcare or Family Care: No Living arrangements: with family Spiritual care concerns: No Meds Home Medications and Allergies Home Medications Medication Instructions Recorded Confirmed Type alprazolam 0.5 mg tablet (Xanax) 0.5 mg PO QHS PRN anxiety 05/31/21 07/27/23 History meloxicam 15 mg tablet 15 mg PO DAILY 06/02/22 07/27/23 History rituximab 10 mg/mL 10 mg IV Q4-6M 08/25/22 07/27/23 History concentrate,intravenous (Rituxan) cyclobenzaprine 10 mg tablet 10 mg PO TID PRN Muscle Spasm 01/30/23 07/27/23 History hydroxychloroquine 200 mg tablet 300 mg PO DAILY 01/30/23 07/27/23 History (Plaquenil) ondansetron 4 mg disintegrating 4 mg PO Q8H PRN nausea and 01/30/23 07/27/23 Rx tablet vomiting #20 tabs tramadol 50 mg tablet 50 mg PO Q12H PRN pain #14 tabs 01/30/23 07/27/23 Rx estradiol-norethindrone acet 1 2 tablet PO DAILY #168 tabs 01/31/23 07/27/23 Rx mg-0.5 mg tablet escitalopram oxalate 10 mg tablet 20 mg PO DAILY #180 tabs 05/11/23 07/27/23 Rx (Lexapro) fluticasone propionate 50 1 - 2 spray intranasal BID #16 mL 06/28/23 07/27/23 Rx mcg/actuation nasal spray,suspension (Flonase Allergy Relief) Allergies Allergy/AdvReac Type Severity Reaction Status Date / Time No Known Allergies Allergy Verified 07/27/23 14:55 Exam Narrative: fluid both ears Assessment and Plan Assessment and plan (1) Bilateral otitis media with effusion: Code(s): H65.93 - Unspecified nonsuppurative otitis media, bilateral Status: Acute Assessment and Plan: plan 0 are bilateral myringotomy tube insertion risks were discussed including bleeding infection damage to surrounding structures n
[2023-08-04] VITALS (9 sets, daily range): BP systolic 99–147; BP diastolic 56–94; PULSE 60–75; RESP 10–16; TEMP 36.2–36.3; O2SAT 94–100
[2023-08-04] MEDS: ACETAMINOPHEN 500 MG TABLET 1000 MG PO (06:28)
[2023-08-04] MEDS: LACTATED RINGERS 1,000 ML 30 ML IV CONT (06:28)
--- NOTE | 2023-08-04 06:40 | WPDANESEPPF ---
Anes - Initial Pre Proc Eval Procedure: Operation Date: 08/04/23 07:30 Proposed Procedures p Bilateral Myringotomy, Insertion Of Tubes - David Ruth MD Date/Time: 08/04/23 06:40 Surgeon: David Ruth MD Pre Op Diagnosis: bilateral otitis media Patient Data Age: 37 Gender: F Height: 1.6 m Weight: 68 kg Allergies Allergy/AdvReac Type Severity Reaction Status Date / Time No Known Allergies Allergy Verified 07/27/23 14:55 Home Medications Medication Instructions Recorded Confirmed Type alprazolam 0.5 mg tablet (Xanax) 0.5 mg PO QHS PRN anxiety 05/31/21 07/27/23 History meloxicam 15 mg tablet 15 mg PO DAILY 06/02/22 07/27/23 History rituximab 10 mg/mL 10 mg IV Q4-6M 08/25/22 07/27/23 History concentrate,intravenous (Rituxan) cyclobenzaprine 10 mg tablet 10 mg PO TID PRN Muscle Spasm 01/30/23 07/27/23 History hydroxychloroquine 200 mg tablet 300 mg PO DAILY 01/30/23 07/27/23 History (Plaquenil) ondansetron 4 mg disintegrating 4 mg PO Q8H PRN nausea and 01/30/23 07/27/23 Rx tablet vomiting #20 tabs tramadol 50 mg tablet 50 mg PO Q12H PRN pain #14 tabs 01/30/23 07/27/23 Rx estradiol-norethindrone acet 1 2 tablet PO DAILY #168 tabs 01/31/23 07/27/23 Rx mg-0.5 mg tablet escitalopram oxalate 10 mg tablet 20 mg PO DAILY #180 tabs 05/11/23 07/27/23 Rx (Lexapro) fluticasone propionate 50 1 - 2 spray intranasal BID #16 mL 06/28/23 07/27/23 Rx mcg/actuation nasal spray,suspension (Flonase Allergy Relief) Patient hx anesthesia problems: none Family hx anesthesia problems: none Results Review: All pre-operative results and documents have been reviewed as part of the pre-operative evaluation. [facility] Past Medical History Medical History Abdominal pain Anxiety Bilateral ankle fractures Discoid lupus just skin Endometriosis HSV (herpes simplex virus) infection Migraine Occult blood in stools Right wrist fracture Surgical History Surgical History H/O exploratory laparotomy exploratory laparotomy, lysis of adhesions, washout, placement of pelvic drain History of bilateral salpingectomy 06/28/21 History of endometrial ablation 2017? History of laparoscopy 9 on ovaries and 3 on right knee History of left oophorectomy History of right oophorectomy 06/28/21, with excision and cauterization of endometriosis Hx of abdominal surgery 07/02/21, Exploratory laparoscopy, lysis of adhesions, wash out, pelvic drain Hx of appendectomy Hx of right knee surgery x3 [place] teeth extracted Family History Family History Father Hypertension Diabetes mellitus Heart problem Mother Hypertension Asthma Anxiety Depression Cerebrovascular accident Other Family history of arthritis Family history of migraine headaches Social History Social History Smoking packs per day: 0.25 Smoking cigarettes per day: 5.0 Years smoked: 20 Smoking pack-years: 5.00 Smoking status: Current every day smoker Tobacco type: cigarettes Smoking end date: 11/06/15 Alcohol intake: current Drinks per week: 4 Alcohol use details: SOCIAL Substance use: never Substance use type: does not use Lack of Transportation: No Lack of Food: Never True Current Housing: I Have Housing Concerned About Future Housing: No Difficulty Paying Gas/Electric Bills: No Difficulty Paying for Meds: No Currently Unemployed: No Education: High School Diploma/GED Difficulty w/ Childcare or Family Care: No Living arrangements: with family Spiritual care concerns: No Anes - Eval Final PreProcedure Day of Procedure 08/04/23 06:40 Patient weight: overweight Heart: regular rate and rhythm Lungs: clear to auscultation Airway: Mallampati scale class II Neurologic
--- NOTE | 2023-08-04 07:21 | WPDHPUPDATE1 ---
History and Physical Update Update Date/Time: 08/04/23 07:21 History and Physical has been reviewed, including an updated exam of the patient. There are NO changes in the patient's condition. Risks, benefits, and alternatives have been discussed and questions answered. Patient agrees to proceed with procedure.
[2023-08-04] MEDS: OXYMETAZOLINE HCL 0.05% NAS 15 ML BTL (*BKC) 1 SPRAY NASAL (07:41)
--- NOTE | 2023-08-04 08:15 | W.PM.PROC2 ---
Procedure Note - Detailed Date of Procedure 08/04/23 Pre-op Diagnosis bilateral otitis media Post-op Diagnosis Same Procedure Performed Bilateral myringotomy and collar-button insertion Surgeon David Ruth MD Anesthesia General (Mask) Indications See above Findings Copious amounts of purulence and blood bilateral middle ears tubes successfully placed very small EAC Description of Procedure Patient identified consent verified preop. Patient brought operating. Time-out performed. General anesthesia induced mask ventilation maintained. Patient prepped draped position 2nd time-out performed. Microscope brought into the field speculum placed myringotomy made blood pus suctioned out collar button tube placed right-sided drops placed exact same procedure exact same findings left side. Copious amounts of blood and purulence. Blood loss 1 cc. I performed all dictated portions procedure no complication care the patient given back to Anesthesiology patient taken to PACU. This was a bilateral procedure. Estimated Blood Loss 1 Drains No Packing No Pathology None sent Complications No immediate complications Condition Stable Disposition PACU [facility] Billing Surgery - Charge Forward: Surgery Billing
[2023-08-04] MEDS: fentaNYL CITRATE INJ (*CRX) 100 MCG/2 ML VIAL 25 MCG IV PUSH ×6 (08:34→08:53)
[2023-08-04] MEDS: oxyCODONE HCL (*CRX) 5 MG TAB IR PO (09:22)
== END 2023-08-04 09:53 | disposition home or self-care (01) ==
PROVIDERS: PCP Internal Medicine; Visit Provider Otolaryngology
PROC: (CPT 69436; principal; 2023-08-04 07:30)
DX: H65.93 Unspecified nonsuppurative otitis media, bilateral (principal); L93.0 Discoid lupus erythematosus; F41.9 Anxiety disorder, unspecified; B00.9 Herpesviral infection, unspecified; Z87.891 Personal history of nicotine dependence; Z79.620 Long term (current) use of immunosuppressive biologic
CPT/HCPCS: 69436; A9270; J1100; J2250; J2405; J2704; J3010; J7120

== ENCOUNTER 2023-11-07 10:36 | Emergency (ER) | payer BC, SELFPAY ==
--- NOTE | ~2023-11-07 | CT_ITS ---
EXAMINATION: 1. CT brain & sinus wo con 2. CT BRAIN WO/ ONLYCT FACIAL BONES WO/ONLY DATE: 11/07/2023 14:57 INDICATION: Worst headache ever. Sinus pressure. TECHNIQUE: 1. Computed tomography (CT) of the head and paranasal sinuses was performed without intravenous contr ast. Sagittal and coronal reconstructions were obtained. The dose-length product was 756.67 mGy-cm. COMPARISON: None. FINDINGS: Head CT: No acute intracranial hemorrhage, acute infarction or abnormal extra axial fluid collection. Ventricl es are normal and symmetric. No mass/mass effect. Moderate-sized right and large left mastoid effusio ns with additional small amount of fluid in the dependent bilateral middle ear cavities. There is com plete opacification of the right ethmoid, bilateral frontal and bilateral maxillary sinuses in near c omplete opacification of the left ethmoid and bilateral sphenoid sinuses consistent with pansinusitis . No definite osseous erosions. The orbits are normal. IMPRESSION: 1. Normal brain. No acute intracranial process. 2. Pansinusitis. 3. Bilateral otomastoiditis effusions, left greater than right. Reviewed, dictated and finalized at location A. OR POWER SCHEDULER
[2023-11-07 10:53] VITALS: BP 123/78; PULSE 93; RESP 20; TEMP 36.2; O2SAT 98
--- NOTE | 2023-11-07 14:04 | ED.HA ---
HPI - Headache General Chief Complaint: Headache Stated Complaint: bran/body aches Time Seen by Provider: 11/07/23 14:05 Source: patient Mode of arrival: ambulatory Limitations: no limitations History of Present Illness HPI Narrative: Yamilex is a 38-year-old female patient presenting to the ER today with complaints of a headache. States that is worse headache that she has ever had. History of migraines in the past. States before she is having photosensitivity and nausea without vomiting. Symptoms started on October 27, patient tested for COVID positive on October 29. Related Data Home Medications Medication Instructions Recorded Confirmed alprazolam 0.5 mg tablet (Xanax) 0.5 mg PO QHS PRN anxiety 05/31/21 09/04/23 meloxicam 15 mg tablet 15 mg PO DAILY 06/02/22 09/04/23 rituximab 10 mg/mL 10 mg IV Q4-6M 08/25/22 09/04/23 concentrate,intravenous (Rituxan) cyclobenzaprine 10 mg tablet 10 mg PO TID PRN Muscle Spasm 01/30/23 09/04/23 hydroxychloroquine 200 mg tablet 300 mg PO DAILY 01/30/23 09/04/23 (Plaquenil) Allergies Allergy/AdvReac Type Severity Reaction Status Date / Time No Known Allergies Allergy Verified 11/07/23 10:56 Review of Systems Review of Systems: Pertinent positives per HPI. Patient denies any fever, chills, rash, headache, visual changes, dizziness, cough, shortness of breath, chest pain, palpitations, nausea, vomiting, diarrhea, constipation, abdominal pain, or any urinary issues. [facility] Past Medical History Medical History Abdominal pain Anxiety Bilateral ankle fractures Discoid lupus just skin Endometriosis HSV (herpes simplex virus) infection Migraine Occult blood in stools Right wrist fracture Surgical History Surgical History H/O exploratory laparotomy exploratory laparotomy, lysis of adhesions, washout, placement of pelvic drain History of bilateral salpingectomy 06/28/21 History of endometrial ablation 2018? History of laparoscopy 9 on ovaries and 3 on right knee History of left oophorectomy History of right oophorectomy 06/28/21, with excision and cauterization of endometriosis Hx of abdominal surgery 07/02/21, Exploratory laparoscopy, lysis of adhesions, wash out, pelvic drain Hx of appendectomy Hx of right knee surgery x3 [place] teeth extracted Family History Family History Father Hypertension Diabetes mellitus Heart problem Mother Hypertension Asthma Anxiety Depression Cerebrovascular accident Other Family history of arthritis Family history of migraine headaches Social History Social History Smoking packs per day: 0.25 Smoking cigarettes per day: 5.0 Years smoked: 20 Smoking pack-years: 5.00 Smoking status: Current every day smoker Tobacco type: cigarettes Smoking end date: 11/06/15 Alcohol intake: current Drinks per week: 4 Alcohol use details: SOCIAL Substance use: never Substance use type: does not use Lack of Transportation: No Lack of Food: Never True Current Housing: I Have Housing Concerned About Future Housing: No Difficulty Paying Gas/Electric Bills: No Difficulty Paying for Meds: No Currently Unemployed: No Education: High School Diploma/GED Difficulty w/ Childcare or Family Care: No Living arrangements: with family Spiritual care concerns: No Comments At the time of my signature, I reviewed and agree with the nursing past medical, surgical, social, and family history. There is no relevant family history pertinent to the patient complaint. Exam Narrative: General: Well-developed, well nourished, in no apparent distress Head: Normocephalic, atraumatic Eyes: Pupils equally round and reactive to light bilaterally, EOM intact, sclera and
[2023-11-07 14:17] VITALS: BP 143/93; PULSE 86; RESP 18; TEMP 36.7; O2SAT 97
[2023-11-07] MEDS: ONDANSETRON INJ 4 MG/2 ML VIAL IV PUSH (15:32)
[2023-11-07] MEDS: SODIUM CHLORIDE 0.9% IV 1,000 ML 999 ML IV CONT (15:32)
[2023-11-07] MEDS: MORPHINE SULFATE (*CRX) 2 MG/ML INJ IV PUSH (15:32)
[2023-11-07] MEDS: KETOROLAC 30 MG/ML VIAL (*BKC) IV PUSH (17:06)
== END 2023-11-07 17:15 | disposition home or self-care (01) ==
PROVIDERS: Emergency Provider Nurse Practitioner Family; PCP Internal Medicine
DX: J01.90 Acute sinusitis, unspecified (principal); B96.89 Other specified bacterial agents as the cause of diseases classified elsewhere; H65.03 Acute serous otitis media, bilateral; L93.0 Discoid lupus erythematosus; F41.9 Anxiety disorder, unspecified; Z87.891 Personal history of nicotine dependence; Z90.79 Acquired absence of other genital organ(s); Z90.722 Acquired absence of ovaries, bilateral
CPT/HCPCS: 70450; 70486; 96361; 96374; 96375; 99284; J1885; J2270; J2405; J7030

== ENCOUNTER 2024-03-12 08:29 | Day surgery (SDC) | payer BC, SELFPAY ==
[2024-03-12] VITALS (12 sets, daily range): BP systolic 116–146; BP diastolic 81–99; PULSE 73–99; RESP 13–16; TEMP 36.2–36.7; O2SAT 95–100
--- NOTE | ~2024-03-12 | CT_ITS ---
EXAMINATION: CT soft tissue neck w con DATE: 03/12/2024 09:10 INDICATION: Right ear pain. Recent surgery. TECHNIQUE: Computed tomography (CT) of the neck was performed with 75 mL Omnipaque-350 intravenous co ntrast. Automated exposure control and iterative reconstruction technique were employed. The dose-grzegorz gth product was 437.64 mGy-cm. COMPARISON: CT sinuses 11/07/2023 FINDINGS: There is mild emphysema. There are no pathologically enlarged lymph nodes. There is mucosal thickening in the paranasal sinuses with sclerosis of the sinus garrido, consistent with chronic sinus itis. There are bilateral mastoidectomies with material in the mastoidectomy cavities. There are bila teral mastoid effusions. There is opacification of the right tympanic cavity. There is near complete opacification of the right external auditory canal. There is mild cervical spondylosis. IMPRESSION: 1. Right mastoidectomy with otomastoid effusion. Near complete opacification of the right external au ditory canal suspicious for otitis externa. 2. Left mastoidectomy with mastoid effusion. 3. Chronic sinusitis. Reviewed, dictated and finalized at location A. IMPRESSION: 1. Right mastoidectomy with otomastoid effusion. Near complete opacification of the right external auditory canal suspicious for otitis externa. 2. Left mastoidectomy with mastoid effusion. 3. Chronic sinusitis.
[2024-03-12 08:57] LABS: Basophils Absolute Auto 0.1 K/mm3 (0.0-0.1); Basophils Percent Auto 0.6 % (0.2-1.2); Eosinophils Absolute Auto 0.3 K/mm3 (0-0.3); Eosinophils Percent Auto 1.7 % (0-4.4); Hematocrit 39.4 % (37.0-47.0); Hemoglobin 13.4 g/dL (12.0-15.0); Immature Granulocyte Absolute 0.08 K/mm3 (0.00-0.031); Immature Granulocyte Percent A 0.5 % (0-0.5); Lymphocytes Absolute Auto 2.92 K/mm3 (0.9-3.2); Lymphocytes Percent Auto 16.6 % (18.3-44.2); Mean Corpuscular Hemoglobin 30.5 pg (26-34); Mean Corpuscular Volume 89.5 fl (80-100); Mean Platelet Volume 9.8 fl (7.4-10.4); Monocytes Absolute Auto 0.9 K/mm3 (0.1-0.6); Monocytes Percent Auto 5.4 % (2.6-8.5); Neutrophils Absolute Auto 13.2 K/mm3 (1.3-6.7); Neutrophils Percent Auto 75.2 % (45.5-73.1); Platelet Count Result 444 k/mm3 (150-375); Red Cell Distribution Width 13.5 % (11.5-14.5); White Blood Count 17.5 K/mm3 (4.5-10.0)
--- NOTE | 2024-03-12 08:59 | ED.GENADULT ---
HPI - General Adult General Chief complaint: Recheck/Abnormal Lab/Rx Stated complaint: post op sickness Time Seen by Provider: 03/12/24 08:38 History of Present Illness HPI narrative: 38-year-old female present to the emergency department for evaluation worsening ear pain. Patient did have recent ear surgery, right-sided mastoidectomy, by a ENT at [facility]. Patient had worsening symptoms and her ENT caledl Dr. Ruth to evaluate the patient. Dr. Ruth did meet the patient in the emergency department. Related Data Home Medications Medication Instructions Recorded Confirmed alprazolam 0.5 mg tablet (Xanax) 0.5 mg PO QHS PRN anxiety 05/31/21 12/25/23 meloxicam 15 mg tablet 15 mg PO DAILY 06/02/22 12/25/23 rituximab 10 mg/mL 10 mg IV Q4-6M 08/25/22 12/25/23 concentrate,intravenous (Rituxan) cyclobenzaprine 10 mg tablet 10 mg PO TID PRN Muscle Spasm 01/30/23 12/25/23 hydroxychloroquine 200 mg tablet 300 mg PO DAILY 01/30/23 12/25/23 (Plaquenil) Allergies Allergy/AdvReac Type Severity Reaction Status Date / Time No Known Allergies Allergy Verified 03/12/24 13:45 Review of Systems Review of Systems: All systems reviewed & are unremarkable except as noted in HPI and below PMFSH Past Medical History Medical History Abdominal pain Anxiety Bilateral ankle fractures Discoid lupus just skin Endometriosis HSV (herpes simplex virus) infection Migraine Occult blood in stools Right wrist fracture Surgical History Surgical History H/O exploratory laparotomy exploratory laparotomy, lysis of adhesions, washout, placement of pelvic drain History of bilateral salpingectomy 06/28/21 History of endometrial ablation 2018? History of laparoscopy 9 on ovaries and 3 on right knee History of left oophorectomy History of right oophorectomy 06/28/21, with excision and cauterization of endometriosis Hx of abdominal surgery 07/02/21, Exploratory laparoscopy, lysis of adhesions, wash out, pelvic drain Hx of appendectomy Hx of right knee surgery x3 [place] teeth extracted Family History Family History Father Hypertension Diabetes mellitus Heart problem Mother Hypertension Asthma Anxiety Depression Cerebrovascular accident Other Family history of arthritis Family history of migraine headaches Social History Social History Smoking packs per day: 0.25 Smoking cigarettes per day: 5.0 Years smoked: 20 Smoking pack-years: 5.00 Smoking status: Current every day smoker Tobacco type: cigarettes Smoking end date: 11/06/15 Alcohol intake: current Drinks per week: 4 Alcohol use details: SOCIAL Substance use: never Substance use type: does not use Lack of Transportation: No Lack of Food: Never True Current Housing: I Have Housing Concerned About Future Housing: No Difficulty Paying Gas/Electric Bills: No Difficulty Paying for Meds: No Currently Unemployed: No Education: High School Diploma/GED Difficulty w/ Childcare or Family Care: No Living arrangements: with family Spiritual care concerns: No Exam Narrative: APPEARANCE: Uncomfortable appearing HEAD: normocephalic, atraumatic. EYES: PERRLA/EOMI, conjunctivae clear. NOSE: Normal no drainage EARS: Right-sided ear and facial pain THROAT: Pharynx clear, no exudate. NECK: Supple. No adenopathy, no masses. RESPIRATORY: Airway patent, respirations nonlabored. Clear to auscultation bilaterally, no rales, rhonchi, wheezing. CARDIOVASCULAR: Regular rate and rhythm without murmurs rubs or gallops. ABDOMINAL: Soft, nontender, nondistended, normal bowel sounds MUSCULOSKELETAL: Moves all extremities. Strength/ROM intact, No edema, No calf tenderness. NEURO: Alert. Cranial ner
[2024-03-12 09:07] LABS: Alanine Aminotransferase 18 U/L (6-35); Albumin Level 4.4 g/dL (3.5-5.1); Alkaline Phosphatase 97 U/L (38-126); Anion Gap 5 mmol/L (4-12); Aspartate Amino Transferase 19 U/L (14-36); Bilirubin,Total 0.7 mg/dL (0.2-1.3); Blood Urea Nitrogen 12 mg/dL (7-17); Carbon Dioxide 25 mmol/L (22-30); Chloride 110 mmol/L (98-107); Estimated CRCL calculation 106 ml/min; Estimated Glomerular Filt Rate > 60; Glucose 104 mg/dL (65-110); Potassium 3.9 mmol/L (3.4-5.0); Sodium 140 mmol/L (137-145)
[2024-03-12 09:07] LABS: Estimated CRCL calculation 106 ml/min; Estimated Glomerular Filt Rate > 60
[2024-03-12] MEDS: SODIUM CHLORIDE 0.9% IV 1,000 ML 999 ML IV CONT (10:57)
[2024-03-12] MEDS: ONDANSETRON INJ 4 MG/2 ML VIAL IV PUSH (10:57)
[2024-03-12] MEDS: HYDROmorphone HCL INJ (*CRX) 1 MG/ML SYR IV PUSH ×2 (10:57→13:00)
[2024-03-12] MEDS: PIPERACILLN/TAZ 3.375GM/NS50ML 3.375 GM/50 ML BAG IVPB (11:21)
--- NOTE | 2024-03-12 11:37 | WPDCN ---
Assessment and Plan Assessment and plan (1) Unspecified mastoiditis, right ear: Code(s): H70.91 - Unspecified mastoiditis, right ear Status: Acute Assessment and Plan: plan OR right-sided incision drainage postauricular abscess. Risks discussed were infection damage to surrounding structures total deafness cholesteatoma formation need for further procedures. Patient voiced understanding and agreed HPI Data of Consult Date/Time: 03/12/24 11:37 Requesting Physician: David Ruth MD Primary Care Provider: Massimo Ruiz DO Consult Narrative Narrative: Yamilex Ruiz is a 38 year old female . Status post right-sided mastoid tympanoplasty tympanomastoidectomy several days ago right-sided swelling edema pain febrile elevated white count. Presents for further evaluation treatment. CT reviewed no neck abscess but purulence coming out. [facility] Past Medical History Medical History Abdominal pain Anxiety Bilateral ankle fractures Discoid lupus just skin Endometriosis HSV (herpes simplex virus) infection Migraine Occult blood in stools Right wrist fracture Surgical History Surgical History H/O exploratory laparotomy exploratory laparotomy, lysis of adhesions, washout, placement of pelvic drain History of bilateral salpingectomy 06/28/21 History of endometrial ablation 2018? History of laparoscopy 9 on ovaries and 3 on right knee History of left oophorectomy History of right oophorectomy 06/28/21, with excision and cauterization of endometriosis Hx of abdominal surgery 07/02/21, Exploratory laparoscopy, lysis of adhesions, wash out, pelvic drain Hx of appendectomy Hx of right knee surgery x3 [place] teeth extracted Family History Family History Father Hypertension Diabetes mellitus Heart problem Mother Hypertension Asthma Anxiety Depression Cerebrovascular accident Other Family history of arthritis Family history of migraine headaches Social History Social History Smoking packs per day: 0.25 Smoking cigarettes per day: 5.0 Years smoked: 20 Smoking pack-years: 5.00 Smoking status: Current every day smoker Tobacco type: cigarettes Smoking end date: 11/06/15 Alcohol intake: current Drinks per week: 4 Alcohol use details: SOCIAL Substance use: never Substance use type: does not use Lack of Transportation: No Lack of Food: Never True Current Housing: I Have Housing Concerned About Future Housing: No Difficulty Paying Gas/Electric Bills: No Difficulty Paying for Meds: No Currently Unemployed: No Education: High School Diploma/GED Difficulty w/ Childcare or Family Care: No Living arrangements: with family Spiritual care concerns: No Meds Home Medications and Allergies Home Medications Medication Instructions Recorded Confirmed Type alprazolam 0.5 mg tablet (Xanax) 0.5 mg PO QHS PRN anxiety 05/31/21 12/25/23 History meloxicam 15 mg tablet 15 mg PO DAILY 06/02/22 12/25/23 History rituximab 10 mg/mL 10 mg IV Q4-6M 08/25/22 12/25/23 History concentrate,intravenous (Rituxan) cyclobenzaprine 10 mg tablet 10 mg PO TID PRN Muscle Spasm 01/30/23 12/25/23 History hydroxychloroquine 200 mg tablet 300 mg PO DAILY 01/30/23 12/25/23 History (Plaquenil) ondansetron 4 mg disintegrating 4 mg PO Q8H PRN nausea and 01/30/23 12/25/23 Rx tablet vomiting #20 tabs tramadol 50 mg tablet 50 mg PO Q12H PRN pain #14 tabs 01/30/23 12/25/23 Rx estradiol-norethindrone acet 1 2 tablet PO DAILY #168 tabs 01/31/23 12/25/23 Rx mg-0.5 mg tablet fluticasone propionate 50 1 - 2 spray intranasal BID #16 mL 06/28/23 12/25/23 Rx mcg/actuation nasal spray,suspension (Flonase Allergy Relief)
[2024-03-12] MEDS: SODIUM CHLORIDE 0.9% IV 1,000 ML 125 ML IV CONT (12:54)
[2024-03-12] MEDS: LACTATED RINGERS 1,000 ML 30 ML IV CONT ×2 (13:30→15:58)
--- NOTE | 2024-03-12 14:35 | WPDANESEPPF ---
Anes - Initial Pre Proc Eval Procedure: Operation Date: 03/12/24 14:00 Proposed Procedures p Incision and Drainage Right Post Auricular Abscess - David Ruth MD Date/Time: 03/12/24 14:35 Surgeon: David Ruth MD Pre Op Diagnosis: post op sickness Patient Data Age: 38 Gender: F Height: 1.6 m Weight: 67 kg Last Vital Signs Temp 36.3 C L 03/12/24 13:57 Pulse 75 03/12/24 13:57 Resp 16 03/12/24 13:57 BP 143/95 H 03/12/24 13:57 Pulse Ox 95 03/12/24 13:57 O2 Del Method Room Air 03/12/24 13:57 Allergies Allergy/AdvReac Type Severity Reaction Status Date / Time No Known Allergies Allergy Verified 03/12/24 13:45 Home Medications Medication Instructions Recorded Confirmed Type alprazolam 0.5 mg tablet (Xanax) 0.5 mg PO QHS PRN anxiety 05/31/21 12/25/23 History meloxicam 15 mg tablet 15 mg PO DAILY 06/02/22 12/25/23 History rituximab 10 mg/mL 10 mg IV Q4-6M 08/25/22 12/25/23 History concentrate,intravenous (Rituxan) cyclobenzaprine 10 mg tablet 10 mg PO TID PRN Muscle Spasm 01/30/23 12/25/23 History hydroxychloroquine 200 mg tablet 300 mg PO DAILY 01/30/23 12/25/23 History (Plaquenil) ondansetron 4 mg disintegrating 4 mg PO Q8H PRN nausea and 01/30/23 12/25/23 Rx tablet vomiting #20 tabs tramadol 50 mg tablet 50 mg PO Q12H PRN pain #14 tabs 01/30/23 12/25/23 Rx estradiol-norethindrone acet 1 2 tablet PO DAILY #168 tabs 01/31/23 12/25/23 Rx mg-0.5 mg tablet fluticasone propionate 50 1 - 2 spray intranasal BID #16 mL 06/28/23 12/25/23 Rx mcg/actuation nasal spray,suspension (Flonase Allergy Relief) amoxicillin 875 mg-potassium 1 tablet PO Q12H 10 days #20 tabs 01/02/24 02/19/24 Rx clavulanate 125 mg tablet prednisone 20 mg tablet 40 mg PO DAILY 5 days #10 tabs 11/07/23 12/25/23 Rx escitalopram oxalate 20 mg tablet 20 mg PO DAILY #90 tabs 03/01/24 Rx (Lexapro) Laboratory Tests 03/12/24 03/12/24 08:47 09:03 WBC 17.5 H K/mm3 (4.5-10.0) RBC 4.40 M/mm3 (4.2-5.4) Hgb 13.4 g/dL (12.0-15.0) Hct 39.4 % (37.0-47.0) MCV 89.5 fl (80-100) MCH 30.5 pg (26-34) MCHC 34.0 g/dl (32-36) RDW 13.5 % (11.5-14.5) Plt Count 444 H k/mm3 (150-375) MPV 9.8 fl (7.4-10.4) Immature Gran % (Auto) 0.5 % (0-0.5) Neut % (Auto) 75.2 H % (45.5-73.1) Lymph % (Auto) 16.6 L % (18.3-44.2) [place] % (Auto) 5.4 % (2.6-8.5) Eos % (Auto) 1.7 % (0-4.4) Baso % (Auto) 0.6 % (0.2-1.2) Lymph # (Auto) 2.92 K/mm3 (0.9-3.2) [place] # (Auto) 0.9 H K/mm3 (0.1-0.6) Eos # (Auto) 0.3 K/mm3 (0-0.3) Baso # (Auto) 0.1 K/mm3 (0.0-0.1) Abs Immat Gran (auto) 0.08 H K/mm3 (0.00-0.031) Absolute Neuts (auto) 13.2 H K/mm3 (1.3-6.7) Absolute Nucleated RBC 0.000 K/mm3 (0.0-0.012) Nucleated RBC % 0.0 % (0.0-0.2) Sodium 140 mmol/L (137-145) Potassium 3.9 mmol/L (3.4-5.0) Chloride 110 H mmol/L (98-107) Carbon Dioxide 25 mmol/L (22-30) Anion Gap 5 mmol/L (4-12) BUN 12 mg/dL (7-17) Creatinine 0.50 L mg/dL 0.50 L mg/dL (0.7-1.0) (0.7-1.2) Estim Creat Clear Calc 106 ml/min 106 ml/min Estimated GFR > 60 > 60 (59 - ) (59 - ) Glucose 104 mg/dL (65-110) Calcium 10.0 mg/dL (8.4-10.2) Total Bilirubin 0.7 mg/dL (0.2-1.3) AST 19 U/L (14-36) ALT 18 U/L (6-35) Alkaline Phosphatase 97 U/L (38-126) Total Protein 7.0 g/dL (6.3-8.2) Albumin 4.4 g/dL (3.5-5.1) Patient hx anesthesia problems: none Family hx anesthesia problems: none Results Review: All pre-operative results and documents have been reviewed as part of the pre-operative evaluation. [facility] Past Medical History Medical History Abdominal pain Anxiety Bi
--- NOTE | 2024-03-12 14:43 | P.HPUP_ITS ---
History and Physical Update Update Date/Time: 03/12/24 14:43 procedure will be right-sided postauricular incision drainage well as right- sided suzan microscopy with debridement
--- NOTE | 2024-03-12 14:43 | WPDHPUPDATE1 ---
History and Physical Update Update Date/Time: 03/12/24 14:43 procedure will be right-sided postauricular incision drainage well as right-sided suzan microscopy with debridement
[2024-03-12] MEDS: LIDO 1%/EPINEPHRINE 1:100,000 50 ML VIAL INFILTRATE (15:31)
[2024-03-12] MEDS: TOBRAMYCIN SULFATE 80 MG/2 ML VIAL 200 MG IRRIGATION (15:32)
--- NOTE | 2024-03-12 15:41 | SUR.OPER ---
Bumpass wick placed in right ear by Dr. Ruth
[2024-03-12] MEDS: CIPROFLOXACIN HCL 0.3% OP SOLN 2.5 ML BTL 4 DROP RIGHT EAR (15:43)
[2024-03-12] MEDS: HYDROmorphone HCL INJ (*CRX) 1 MG/ML SYR 0.5 MG IV PUSH (16:06)
--- NOTE | 2024-03-12 16:37 | W.PM.PROC2 ---
Procedure Note - Detailed Date of Procedure 03/12/24 Pre-op Diagnosis Right-sided mastoiditis and otitis externa Post-op Diagnosis Same Procedure Performed right-sided debridement with otowick placement ear debridement. Right-sided incision drainage postauricular mastoid abscess Surgeon David Ruth MD Anesthesia General ( LMA) Indications see above Findings copious amounts of thick purulence in the right mastoid cavity cultured ear canal swollen shut had to debride and placed an otowick minimal bleeding Description of Procedure patient identified consent verified. In preop. Patient brought operating. Time-out performed. General anesthesia induced LMA secured. Patient prepped draped position procedure confirmed 2nd time-out performed. A total 1 cc 1% lidocaine 1 100 parts epinephrine injected in the bilateral sorry injected into the postauricular incision 15 blade utilized to cut through the incision Bovie electrocautery lysed cut down copious amounts of purulence emanated this was cultured x2. Wound copiously irrigated with sterile normal saline infused with tobramycin 400 milligrams/liter. [place] placed sutured into place with the 3-0 nylon stitch. Wound closely loosely closed with 3 interrupted 3-0 Vicryl sutures. Jasbir microscope brought into the field. Right-sided debrided otowick placed. 0 prior to closure the mastoid cavity was filled with ciprofloxacin drops. Care the patient given Anesthesiology blood loss 5 cc no complication patient taken to PACU I performed all dictated portions of procedure. Estimated Blood Loss 5 Packing No Pathology None sent Complications No immediate complications Condition Stable Disposition PACU [facility] Billing Surgery - Charge Forward: Surgery Billing
[2024-03-12] MEDS: oxyCODONE HCL (*CRX) 5 MG TAB IR PO (17:00)
== END 2024-03-12 17:25 | disposition home or self-care (01) ==
LOC: ANHED 11:22 → ANHSURGERY 11:23
PROVIDERS: Emergency Provider Emergency Medicine; PCP Internal Medicine; Visit Provider Otolaryngology
PROC: (CPT 69005; principal; 2024-03-12 14:00)
DX: H60.01 Abscess of right external ear (principal); H70.91 Unspecified mastoiditis, right ear; L93.0 Discoid lupus erythematosus; F41.9 Anxiety disorder, unspecified; Z79.620 Long term (current) use of immunosuppressive biologic; F17.210 Nicotine dependence, cigarettes, uncomplicated
CPT/HCPCS: 69005; 36415; 70491; 80053; 85025; 87070; 87075; 87077; 87185; 87205; 96365; 96375; 96376; 99285; A9270; J1100; J1170; J1596; J1885; J2250; J2405; J2543; J2704; J3010; J3260; J7030; J7120; Q9967

== ENCOUNTER 2024-03-15 14:21 | Inpatient (IN) | payer BC, SELFPAY ==
[2024-03-15 14:39] VITALS: BP 141/83; PULSE 83; RESP 16; TEMP 36.8; O2SAT 99
--- NOTE | 2024-03-15 15:00 | PC.NURSE ---
Dr Ruth assessed patient in triage
--- NOTE | 2024-03-15 16:58 | ED.NAVMDI ---
HPI - Nausea/Vomiting/Diarrhea General Chief complaint: Nausea/Vomiting/Diarrhea Stated complaint: post op n/v and fever Time Seen by Provider: 03/15/24 16:03 History of Present Illness HPI Narrative: This 38-year-old female, with recent history of mastoiditis, complicating and right ear surgery, who return to the emergency department at the recommendation of our ENT surgeon, Dr. Ruth, complaining of nausea/vomiting and persistent pain. The patient states her pain is sharp and intermittently throbbing, rated 7/10. She denies weakness, numbness, change/loss of vision or loss of consciousness. She complains of some muffled hearing on the right though no loss. She has no other complaints at this time. Related Data Home Medications Medication Instructions Recorded Confirmed alprazolam 0.5 mg tablet (Xanax) 0.5 mg PO QHS PRN anxiety 05/31/21 03/14/24 meloxicam 15 mg tablet 15 mg PO DAILY 06/02/22 03/14/24 rituximab 10 mg/mL 10 mg IV Q4-6M 08/25/22 03/14/24 concentrate,intravenous (Rituxan) hydroxychloroquine 200 mg tablet 300 mg PO DAILY 01/30/23 03/14/24 (Plaquenil) levofloxacin 500 mg tablet 500 mg PO DAILY 03/14/24 03/14/24 Allergies Allergy/AdvReac Type Severity Reaction Status Date / Time No Known Allergies Allergy Verified 03/15/24 16:56 Review of Systems Review of Systems: All systems reviewed & are unremarkable except as noted in HPI and below (HPI) PMFSH Past Medical History Medical History Abdominal pain Anxiety Bilateral ankle fractures Discoid lupus just skin Endometriosis HSV (herpes simplex virus) infection Migraine Occult blood in stools Right wrist fracture Surgical History Surgical History H/O exploratory laparotomy exploratory laparotomy, lysis of adhesions, washout, placement of pelvic drain History of bilateral salpingectomy 06/28/21 History of endometrial ablation 2018? History of laparoscopy 9 on ovaries and 3 on right knee History of left oophorectomy History of right oophorectomy 06/28/21, with excision and cauterization of endometriosis Hx of abdominal surgery 07/02/21, Exploratory laparoscopy, lysis of adhesions, wash out, pelvic drain Hx of appendectomy Hx of right knee surgery x3 [place] teeth extracted Family History Family History Father Hypertension Diabetes mellitus Heart problem Mother Hypertension Asthma Anxiety Depression Cerebrovascular accident Other Family history of arthritis Family history of migraine headaches Social History Social History Smoking packs per day: 0.25 Smoking cigarettes per day: 5.0 Years smoked: 20 Smoking pack-years: 5.00 Smoking status: Current every day smoker Tobacco type: cigarettes Smoking end date: 11/06/15 Alcohol intake: current Drinks per week: 4 Alcohol use details: SOCIAL Substance use: never Substance use type: does not use Lack of Transportation: No Lack of Food: Never True Current Housing: I Have Housing Concerned About Future Housing: No Difficulty Paying Gas/Electric Bills: No Difficulty Paying for Meds: No Currently Unemployed: No Education: High School Diploma/GED Difficulty w/ Childcare or Family Care: No Living arrangements: with family Spiritual care concerns: No Exam Narrative: GENERAL: Well-developed, well-nourished, and in no acute distress. HEAD: Normocephalic, atraumatic. EYES: PERRLA and EOMI. ENT: Erythema, swelling and tenderness to palpation of the right mastoid. There are he sutures in place with a loop with drainage of purulent and slightly bloody fluid. External auditory meatus swelling. Nares clear, no rhinorrhea or epistaxis. Mucous membranes moist. Oropharynx without tonsillar hypertrophy exudate or
[2024-03-15] MEDS: ONDANSETRON INJ 4 MG/2 ML VIAL IV PUSH ×2 (17:13→21:37)
[2024-03-15 17:14] VITALS: BP 159/100; PULSE 78; RESP 18; O2SAT 100
[2024-03-15] MEDS: MORPHINE SULFATE (*CRX) 4 MG/ML INJ IV PUSH ×2 (17:14→19:45)
[2024-03-15] MEDS: LACTATED RINGERS 1,000 ML 999 ML IV CONT (17:14)
[2024-03-15 17:31] LABS: Alanine Aminotransferase 18 U/L (6-35); Albumin Level 4.8 g/dL (3.5-5.1); Alkaline Phosphatase 100 U/L (38-126); Anion Gap 9 mmol/L (4-12); Aspartate Amino Transferase 19 U/L (14-36); Basophils Absolute Auto 0.1 K/mm3 (0.0-0.1); Basophils Percent Auto 0.8 % (0.2-1.2); Bilirubin,Total 0.5 mg/dL (0.2-1.3); Blood Urea Nitrogen 11 mg/dL (7-17); Calcium 10.2 mg/dL (8.4-10.2); Carbon Dioxide 27 mmol/L (22-30); Chloride 106 mmol/L (98-107); Eosinophils Absolute Auto 0.3 K/mm3 (0-0.3); Eosinophils Percent Auto 1.7 % (0-4.4); Estimated CRCL calculation 90 ml/min; Estimated Glomerular Filt Rate > 60; Glucose 100 mg/dL (65-110); Hemoglobin 14.4 g/dL (12.0-15.0); Immature Granulocyte Absolute 0.09 K/mm3 (0.00-0.031); Immature Granulocyte Percent A 0.6 % (0-0.5); Lymphocytes Absolute Auto 2.87 K/mm3 (0.9-3.2); Mean Corpuscular HGB Conc 33.5 g/dl (32-36); Mean Corpuscular Hemoglobin 30.3 pg (26-34); Mean Corpuscular Volume 90.5 fl (80-100); Monocytes Absolute Auto 0.9 K/mm3 (0.1-0.6); Monocytes Percent Auto 5.7 % (2.6-8.5); Neutrophils Absolute Auto 10.9 K/mm3 (1.3-6.7); Neutrophils Percent Auto 72.2 % (45.5-73.1); Platelet Count Result 551 k/mm3 (150-375); Potassium 3.7 mmol/L (3.4-5.0); Red Blood Count 4.75 M/mm3 (4.2-5.4); Red Cell Distribution Width 13.6 % (11.5-14.5); Sodium 142 mmol/L (137-145); White Blood Count 15.1 K/mm3 (4.5-10.0)
[2024-03-15 17:33] LABS: Lactic Acid Reflex 0.7 mmol/L (0.7-2.0)
[2024-03-15] MEDS: cefTRIAXone 2 GM/NS 100 ML 2 GM/100 ML BAG IVPB (19:26)
[2024-03-15 19:32] VITALS: BP 150/89; PULSE 78; RESP 16; O2SAT 97
[2024-03-15] MEDS: LACTATED RINGERS 1,000 ML 150 ML IV CONT (19:53)
[2024-03-15] MEDS: VANCOMYCIN 1,500 MG/NS 500 ML 1,500 MG/500 ML BAG 250 MG IVPB (19:55)
[2024-03-15] MEDS: CIPROFLOXACIN HC OTIC 10 ML 5 DROP RIGHT EAR (19:57)
[2024-03-15 20:39] VITALS: BP 146/77; PULSE 77; RESP 16; TEMP 36.6; O2SAT 99
--- NOTE | 2024-03-15 21:17 | PM.IMHP ---
H&P: HPI History of Present Illness Date/Time: 03/15/24 21:17 Chief Complaint: right ear infection Narrative: This is a 38-year-old female with past medical history significant for COPD/ emphysema, discoid lupus, endometriosis, migraine, tobacco dependence. Patient presents to the emergency room after having procedure performed in her right ear got infected and required drainage. Patient has been admitted for further evaluation management and treat Review of Systems Review of Systems: right ear infection status post surgery Constitutional: Constitutional: Reports chills and Reports fever(s) Eyes: Eyes: Denies change in vision ENT: Reports ear discharge, Reports hearing loss, Denies nasal congestion, Denies nasal discharge and Denies neck pain Cardiovascular: Cardiovascular: Denies chest pain, Denies radiating jaw, neck or arm pain and Denies palpitations Respiratory: Respiratory: Denies chest congestion and Denies cough Gastrointestinal: Gastrointestinal: Denies abdominal pain, Denies diarrhea, Denies nausea and Denies vomiting Genitourinary: Genitourinary: Denies dysuria Musculoskeletal: Musculoskeletal: Denies arthralgias Integumentary/Breasts: Skin/Breast: Denies rash Neurologic: Denies focal weakness and Denies Sensory deficit (Neuro) Psychiatric: Psychiatric: Reports no additional psychiatric complaints and Reports as per HPI Endocrine: Endocrine: Denies cold intolerance, Denies fatigue, Denies flushing, Denies heat intolerance, Denies polyphagia, Denies polydipsia, Denies polyuria and Denies palpitations Hematologic/Lymphatic: Hematologic/Lymphatic: Reports no additional hematologic/lymphatic complaints and Reports as per HPI Allergic/Immunologic: Allergic/Immunologic: Reports no additional allergic/immunologic complaints and Reports as per HPI PMFSH Past Medical History Medical History Abdominal pain Anxiety Bilateral ankle fractures Discoid lupus just skin Endometriosis HSV (herpes simplex virus) infection Migraine Occult blood in stools Right wrist fracture Surgical History Surgical History H/O exploratory laparotomy exploratory laparotomy, lysis of adhesions, washout, placement of pelvic drain History of bilateral salpingectomy 06/28/21 History of endometrial ablation 2018? History of laparoscopy 9 on ovaries and 3 on right knee History of left oophorectomy History of right oophorectomy 06/28/21, with excision and cauterization of endometriosis Hx of abdominal surgery 07/02/21, Exploratory laparoscopy, lysis of adhesions, wash out, pelvic drain Hx of appendectomy Hx of right knee surgery x3 [place] teeth extracted Family History Family History Father Hypertension Diabetes mellitus Heart problem Mother Hypertension Asthma Anxiety Depression Cerebrovascular accident Other Family history of arthritis Family history of migraine headaches Social History Social History Smoking packs per day: 0.5 Smoking cigarettes per day: 10.0 Years smoked: 20 Smoking pack-years: 10.00 Smoking status: Current every day smoker Tobacco type: cigarettes Smoking end date: 11/06/15 Alcohol intake: current Drinks per week: 4 Alcohol use details: SOCIAL Substance use: never Substance use type: does not use Do You Feel Safe in your Home?: Yes Lack of Transportation: No Lack of Food: Never True Current Housing: I Have Housing Concerned About Future Housing: No Difficulty Paying Gas/Electric Bills: No Difficulty Paying for Meds: No Currently Unemployed: No Education: High School Diploma/GED Difficulty w/ Childcare or Family Care: No Living arrangements: with family Spiritual care concerns: No Meds Home M
--- NOTE | 2024-03-15 21:19 | ADMGEN ---
This patient, Yamilex Ruiz, was admitted to [facility] Surg Room 303-01. Patient/family oriented to hospital policies and general routines including ID bracelet, bed and alarms, visiting hours, pain management, procedures, bathroom and other care routines, personal items, smoking policy, room service/diet, and visiting hours. Information on how to activate the Rapid Response Team has been discussed. Patient/Family are encouraged to report perceived risks to care and to ask questions if they do not understand what they are told or what they should do.
[2024-03-15] MEDS: HYDROmorphone HCL INJ (*CRX) 1 MG/ML SYR IV PUSH (21:37)
[2024-03-15 21:47] VITALS: BP 100/90; PULSE 64; RESP 13; TEMP 36.4; O2SAT 98; BMI 25.0
[2024-03-16] MEDS: diphenhydrAMINE HCl INJ 50 MG/ML VIAL 25 MG IV PUSH (00:07)
[2024-03-16] MEDS: HYDROmorphone HCL INJ (*CRX) 1 MG/ML SYR IV PUSH ×6 (00:08→20:07)
[2024-03-16] MEDS: CIPROFLOXACIN HC OTIC 10 ML 5 DROP RIGHT EAR ×5 (00:13→23:53)
[2024-03-16] MEDS: LACTATED RINGERS 1,000 ML 150 ML IV CONT ×2 (02:54→09:33)
[2024-03-16] MEDS: ONDANSETRON INJ 4 MG/2 ML VIAL IV PUSH (02:55)
[2024-03-16] MEDS: diphenhydrAMINE HCl INJ 50 MG/ML VIAL IV PUSH (04:39)
[2024-03-16 05:27] VITALS: BP 146/93; PULSE 63; RESP 13; TEMP 36.1; O2SAT 99
[2024-03-16 06:42] LABS: Basophils Absolute Auto 0.1 K/mm3 (0.0-0.1); Basophils Percent Auto 0.7 % (0.2-1.2); Eosinophils Absolute Auto 0.4 K/mm3 (0-0.3); Eosinophils Percent Auto 2.7 % (0-4.4); Hematocrit 41.8 % (37.0-47.0); Hemoglobin 13.7 g/dL (12.0-15.0); Immature Granulocyte Absolute 0.08 K/mm3 (0.00-0.031); Immature Granulocyte Percent A 0.6 % (0-0.5); Lymphocytes Absolute Auto 5.09 K/mm3 (0.9-3.2); Lymphocytes Percent Auto 35.7 % (18.3-44.2); Mean Corpuscular HGB Conc 32.8 g/dl (32-36); Mean Corpuscular Hemoglobin 30.6 pg (26-34); Mean Corpuscular Volume 93.3 fl (80-100); Monocytes Percent Auto 7.1 % (2.6-8.5); Neutrophils Absolute Auto 7.6 K/mm3 (1.3-6.7); Neutrophils Percent Auto 53.2 % (45.5-73.1); Platelet Count Result 531 k/mm3 (150-375); Red Blood Count 4.48 M/mm3 (4.2-5.4); Red Cell Distribution Width 13.5 % (11.5-14.5); White Blood Count 14.3 K/mm3 (4.5-10.0)
[2024-03-16 06:56] LABS: Anion Gap 6 mmol/L (4-12); Blood Urea Nitrogen 9 mg/dL (7-17); Calcium 9.8 mg/dL (8.4-10.2); Carbon Dioxide 32 mmol/L (22-30); Chloride 104 mmol/L (98-107); Estimated CRCL calculation 78 ml/min; Estimated Glomerular Filt Rate > 60; Glucose 91 mg/dL (65-110); Potassium 3.6 mmol/L (3.4-5.0); Sodium 142 mmol/L (137-145)
[2024-03-16 08:00] VITALS: O2SAT 97
[2024-03-16] MEDS: HYDROXYCHLOROQUINE SULFATE 200 MG TABLET PO (09:30)
[2024-03-16] MEDS: HYDROXYCHLOROQUINE SULFATE 100 MG TABLET PO (09:31)
[2024-03-16] MEDS: MELOXICAM 7.5 MG TABLET 15 MG PO (09:32)
[2024-03-16] MEDS: CLINDAMYCIN 900 MG/D5W 50 ML 900 MG/50 ML PIGGYBACK 50 MG IVPB (09:32)
[2024-03-16] MEDS: FLUTICASONE PROPIONATE 0.05% NA SPR 16 GM BTL (*BKC) NASAL ×2 (09:34→20:10)
--- NOTE | 2024-03-16 10:24 | PM.IMPN ---
Progress Note: A&P Assessment and Plan (1) Acute mastoiditis: Qualifiers: Laterality: right Qualified Code(s): H70.001 - Acute mastoiditis without complications, right ear Code(s): H70.009 - Acute mastoiditis without complications, unspecified ear Status: Acute Assessment and Plan: Patient was started on IV vancomycin last night and appears to have had red man's reaction. This was discontinued with plans to substitute with clindamycin for possible MRSA coverage however when Dr. Ruth arrived he states that Haemophilus influenzae was already cultured and requested IV Rocephin 2 g daily (2) Nausea & vomiting: Qualifiers: Vomiting type: unspecified Qualified Code(s): R11.2 - Nausea with vomiting, unspecified Code(s): R11.2 - Nausea with vomiting, unspecified Status: Acute Assessment and Plan: supportive care likely secondary to p.o. antibiotics 03/16: patient feeling much better, initiate regular diet, Zofran p.r.n. (3) Ear pain, right: Code(s): H92.01 - Otalgia, right ear Status: Acute Assessment and Plan: - scheduled Motrin, scheduled oxycodone, p.r.n. Dilaudid q.4 for breakthrough - oral Benadryl for itching (4) Post-operative pain: Code(s): G89.18 - Other acute postprocedural pain Status: Acute Assessment and Plan: see 3 (5) Tobacco dependence: Code(s): F17.200 - Nicotine dependence, unspecified, uncomplicated Status: Acute Assessment and Plan: nicotine patch Offered but patient declined (6) COPD (chronic obstructive pulmonary disease): Code(s): J44.9 - Chronic obstructive pulmonary disease, unspecified Status: Acute Assessment and Plan: not actively wheezing continue home meds Time Spent With Patient Time with patient: 25 - 35 minutes Subjective Date/time seen: 03/16/24 10:24 Interval history: Patient had been kept NPO overnight by ER provider admission orders. She was started on vancomycin for right mastoiditis but she developed redness and itching of the skin so this and discontinued. Suspect this is red man syndrome rather than allergic reaction. Patient is also receiving narcotic pain medication with a known history of itching due to morphine. She was treated twice overnight with IV Benadryl for itching, continues to itch today without any rash and we will treat with oral Benadryl. Dr. Ruth with ENT arrived to bedside while I was assessing patient. He stated she can eat/drink. He requested IV ceftriaxone 2 g daily to treat previously cultured Haemophilus influenza. Right ear still significantly painful with mild drainage from [place]. pain medication changed to include scheduled Motrin and scheduled oxycodone q.6 hours with IV Dilaudid q.4 for breakthrough. offered nicotine patch which patient declined. Review of Systems Review of Systems: right ear infection status post surgery Exam Narrative: GENERAL: Uncomfortable appearing, well-nourished, and in no acute distress. HEAD: Normocephalic, atraumatic. ENT:? Mucous membranes moist. [place] drain in place over right mastoid with dried brown and blood-tinged drainage on overlying 4 x 4, small area induration at 5 o'clock position below [place] with lavonne in place. auditory canal appears erythematous with small amount of greenish drainage and induration CHEST: Clear to auscultation.? No respiratory distress. HEART: Regular rate and rhythm. ? Normal peripheral pulses. ABDOMEN: Soft, nontender, nondistended. EXTREMITIES: Normal range of motion. No peripheral edema. SKIN: Warm dry normal color NEURO: Alert and oriented x3. PSYCH: Normal mood and affect Objective Data Vital Signs Vital Signs: Vital Signs - 24 hr 03/15/24 14:39 03/15/24 17:14 03/15/24 19:32 Temperature 36.8 C Pulse Rate 83 78 78 Respiratory Rate 16 18 16 Blood Pressure 141/83 H 159/100 H 150/89 H Pulse Oxim
--- NOTE | 2024-03-16 10:39 | WPDCN ---
Assessment and Plan Assessment and plan (1) Acute mastoiditis: Qualifiers: Laterality: right Qualified Code(s): H70.001 - Acute mastoiditis without complications, right ear Code(s): H70.009 - Acute mastoiditis without complications, unspecified ear Status: Acute Assessment and Plan: Plan trend white count daily would recommend IV ceftriaxone 2 g qd, discussed with ID pharmacy as well. Prominent organism from operative culture was H influenzae, awaiting sensitivities susceptibility. HPI Data of Consult Date/Time: 03/16/24 10:39 Requesting Physician: Antonio Mackey MD Primary Care Provider: Massimo Ruiz, Consult Narrative Narrative: Yamilex Ruiz is a 38 year old female Status post mastoid tympanoplasty tympanomastoidectomy I believe February 25. Developed severe infections status post postauricular I and D for mastoiditis essentially of the mastoid cavity in otitis externa. Patient was not tolerating oral antibiotics severe emesis. Presented to the ED admitted. Red man syndrome from vanc. White count is trending down. Patient did receive 2 g of ceftriaxone yesterday. Review of Systems Review of Systems: All systems reviewed & are unremarkable except as noted in HPI and below PMFSH Past Medical History Medical History Abdominal pain Anxiety Bilateral ankle fractures Discoid lupus just skin Endometriosis HSV (herpes simplex virus) infection Migraine Occult blood in stools Right wrist fracture Surgical History Surgical History H/O exploratory laparotomy exploratory laparotomy, lysis of adhesions, washout, placement of pelvic drain History of bilateral salpingectomy 06/28/21 History of endometrial ablation 2018? History of laparoscopy 9 on ovaries and 3 on right knee History of left oophorectomy History of right oophorectomy 06/28/21, with excision and cauterization of endometriosis Hx of abdominal surgery 07/02/21, Exploratory laparoscopy, lysis of adhesions, wash out, pelvic drain Hx of appendectomy Hx of right knee surgery x3 [place] teeth extracted Family History Family History Father Hypertension Diabetes mellitus Heart problem Mother Hypertension Asthma Anxiety Depression Cerebrovascular accident Other Family history of arthritis Family history of migraine headaches Social History Social History Smoking packs per day: 0.5 Smoking cigarettes per day: 10.0 Years smoked: 20 Smoking pack-years: 10.00 Smoking status: Current every day smoker Tobacco type: cigarettes Smoking end date: 11/06/15 Alcohol intake: current Drinks per week: 4 Alcohol use details: SOCIAL Substance use: never Substance use type: does not use Do You Feel Safe in your Home?: Yes Lack of Transportation: No Lack of Food: Never True Current Housing: I Have Housing Concerned About Future Housing: No Difficulty Paying Gas/Electric Bills: No Difficulty Paying for Meds: No Currently Unemployed: No Education: High School Diploma/GED Difficulty w/ Childcare or Family Care: No Living arrangements: with family Spiritual care concerns: No Meds Home Medications and Allergies Home Medications Medication Instructions Recorded Confirmed Type alprazolam 0.5 mg tablet (Xanax) 0.5 mg PO QHS PRN anxiety 05/31/21 03/15/24 History meloxicam 15 mg tablet 15 mg PO DAILY 06/02/22 03/15/24 History rituximab 10 mg/mL 10 mg IV Q4-6M 08/25/22 03/15/24 History concentrate,intravenous (Rituxan) hydroxychloroquine 200 mg tablet 300 mg PO DAILY 01/30/23 03/15/24 History (Plaquenil) estradiol-norethindrone acet 1 2 tablet PO DAILY #168 tabs 01/31/23 03/15/24 Rx mg-0.5 mg tablet fluticas
[2024-03-16] MEDS: oxyCODONE HCL (*CRX) 5 MG TAB IR 10 MG PO ×3 (11:45→23:53)
[2024-03-16] MEDS: IBUPROFEN 600 MG TABLET PO ×3 (11:45→23:53)
[2024-03-16] MEDS: LORATADINE 10 MG TABLET PO (11:46)
[2024-03-16 13:51] VITALS: BP 136/93; PULSE 63; RESP 20; TEMP 36.3; O2SAT 99
[2024-03-16] MEDS: cefTRIAXone 2 GM/NS 100 ML 2 GM/100 ML BAG IVPB (18:32)
[2024-03-16] MEDS: ESCITALOPRAM OXALATE 10 MG TABLET 20 MG PO (20:10)
[2024-03-16 20:31] VITALS: BP 96/67; PULSE 73; RESP 16; TEMP 36.5; O2SAT 99
[2024-03-16 20:32] VITALS: BP 146/92
[2024-03-17] MEDS: HYDROmorphone HCL INJ (*CRX) 1 MG/ML SYR IV PUSH (01:39)
[2024-03-17 06:00] VITALS: BP 129/84; PULSE 65; RESP 14; TEMP 36.3; O2SAT 98
[2024-03-17 06:14] LABS: Basophils Absolute Auto 0.1 K/mm3 (0.0-0.1); Eosinophils Absolute Auto 0.6 K/mm3 (0-0.3); Eosinophils Percent Auto 5.3 % (0-4.4); Hematocrit 39.3 % (37.0-47.0); Hemoglobin 12.9 g/dL (12.0-15.0); Immature Granulocyte Absolute 0.07 K/mm3 (0.00-0.031); Immature Granulocyte Percent A 0.6 % (0-0.5); Lymphocytes Absolute Auto 4.32 K/mm3 (0.9-3.2); Lymphocytes Percent Auto 38.4 % (18.3-44.2); Mean Corpuscular HGB Conc 32.8 g/dl (32-36); Mean Corpuscular Hemoglobin 30.3 pg (26-34); Mean Corpuscular Volume 92.3 fl (80-100); Mean Platelet Volume 10.2 fl (7.4-10.4); Monocytes Percent Auto 8.4 % (2.6-8.5); Neutrophils Absolute Auto 5.2 K/mm3 (1.3-6.7); Neutrophils Percent Auto 46.3 % (45.5-73.1); Platelet Count Result 499 k/mm3 (150-375); Red Blood Count 4.26 M/mm3 (4.2-5.4); Red Cell Distribution Width 13.7 % (11.5-14.5); White Blood Count 11.3 K/mm3 (4.5-10.0)
[2024-03-17 06:17] LABS: Alanine Aminotransferase 21 U/L (6-35); Albumin Level 4.1 g/dL (3.5-5.1); Alkaline Phosphatase 93 U/L (38-126); Anion Gap 4 mmol/L (4-12); Aspartate Amino Transferase 30 U/L (14-36); Bilirubin,Total 0.3 mg/dL (0.2-1.3); Blood Urea Nitrogen 11 mg/dL (7-17); Calcium 9.3 mg/dL (8.4-10.2); Carbon Dioxide 30 mmol/L (22-30); Chloride 106 mmol/L (98-107); Estimated CRCL calculation 90 ml/min; Estimated Glomerular Filt Rate > 60; Glucose 92 mg/dL (65-110); Potassium 3.8 mmol/L (3.4-5.0); Sodium 140 mmol/L (137-145)
[2024-03-17] MEDS: IBUPROFEN 600 MG TABLET PO ×2 (06:26→11:40)
[2024-03-17] MEDS: oxyCODONE HCL (*CRX) 5 MG TAB IR 10 MG PO ×2 (06:27→11:40)
[2024-03-17] MEDS: CIPROFLOXACIN HC OTIC 10 ML 5 DROP RIGHT EAR ×2 (06:27→11:41)
[2024-03-17 08:00] VITALS: O2SAT 98
--- NOTE | 2024-03-17 10:26 | PM.DS ---
DS: Admitting Diagnosis Discharge Date 03/17/2024 Admitting Diagnosis acute mastoiditis, nausea/vomiting, ear pain, post operative pain, tobacco dependence, copd DS: Discharge Diagnosis Discharge Diagnosis (1) Acute mastoiditis: Qualifiers: Laterality: right Qualified Code(s): H70.001 - Acute mastoiditis without complications, right ear Code(s): H70.009 - Acute mastoiditis without complications, unspecified ear Status: Acute (2) Nausea & vomiting: Qualifiers: Vomiting type: unspecified Qualified Code(s): R11.2 - Nausea with vomiting, unspecified Code(s): R11.2 - Nausea with vomiting, unspecified Status: Acute (3) Ear pain, right: Code(s): H92.01 - Otalgia, right ear Status: Acute (4) Post-operative pain: Code(s): G89.18 - Other acute postprocedural pain Status: Acute (5) Tobacco dependence: Code(s): F17.200 - Nicotine dependence, unspecified, uncomplicated Status: Acute DS: Summary Hospital Course Reason for hospitalization: right mastoiditis and post operative infection Hospital Course: Patient had surgery behind right ear to drain pus at [facility] the end of February. She continued to have worsening pain going back to the clinic. She came to ER and was taken to OR for large amount of pus drainage with [place] placement by Dr. Ruth. She was admitted for iv antibiotics, pain control and reevaluation. Yesterday Dr. Ruth came to bedside and got some more drainage from [place]. Today her site looks vastly better and WBCs have been downtrending daily. During stay she had Red Man Syndrome with IV vancomycin and had itching likely due to IV narcotic medications and this was treated with Benadryl. Swelling is nearly completely resolved. She received another dose of IV Rocephin (H. influenza on culture) and was discharged with Augmentin BID for 10 days at request of Dr. Ruth. Pain medication, naloxone, ondansetron and fluconazole also prescribed. Patient instructed to take OTC probiotics to decrease stomach discomfort and fluconazole on day 4, 7 and after day 10 of Augmentin for yeast infection. Patient to follow up with Dr. Ruth in the next 1 week in the clinic. Time spent discussing smoking cessation with patient: 3 to 10 minutes Status at Discharge Cognitive/behavioral status at discharge: awake, alert, oriented and pleasant Functional status at discharge: independent ambulation Overall status at discharge: patient is progressing back to baseline Time Spent with Patient Time attestation: Total time spent providing and/or coordinating discharge services: 45 minutes Exam Narrative: GENERAL: much improved appearing in no acute distress. HEAD: Normocephalic, atraumatic. ENT:? Mucous membranes moist. [place] drain in place over right mastoid minimal dry drainage on bandage, minimal induration (greatly improved) and only mild canal narrowing. CHEST: Clear to auscultation.? No respiratory distress. HEART: Regular rate and rhythm. ? Normal peripheral pulses. ABDOMEN: Soft, nontender, nondistended. EXTREMITIES: Normal range of motion. No peripheral edema. SKIN: Warm dry normal color NEURO: Alert and oriented x3. PSYCH: Normal mood and affect DS: Data Data Completed and Pending Labs on day of discharge: Labs from last 24 hours 03/17/24 05:04 WBC 11.3 H RBC 4.26 Hgb 12.9 Hct 39.3 MCV 92.3 MCH 30.3 MCHC 32.8 RDW 13.7 Plt Count 499 H MPV 10.2 Immature Gran % (Auto) 0.6 H Neut % (Auto) 46.3 Lymph % (Auto) 38.4 [place] % (Auto) 8.4 Eos % (Auto) 5.3 H Baso % (Auto) 1.0 Lymph # (Auto) 4.32 H [place] # (Auto) 1.0 H Eos # (Auto) 0.6 H Baso # (Auto) 0.1 Abs Immat Gran (auto) 0.07 H Absolute Neuts (auto) 5.2 Absolute Nucleated RBC 0.000 Nucleated RBC % 0.0 Sodium 140 Potassium 3.8 Chloride 106 Carbon Dioxide 30 Anion Gap 4 BUN 11 Creatinine 0.60 L Estim Creat Clear Calc 90 Estimate
[2024-03-17] MEDS: LORATADINE 10 MG TABLET PO (10:27)
[2024-03-17] MEDS: MELOXICAM 7.5 MG TABLET 15 MG PO (10:27)
[2024-03-17] MEDS: HYDROXYCHLOROQUINE SULFATE 100 MG TABLET PO (10:27)
[2024-03-17] MEDS: HYDROXYCHLOROQUINE SULFATE 200 MG TABLET PO (10:27)
[2024-03-17] MEDS: FLUTICASONE PROPIONATE 0.05% NA SPR 16 GM BTL (*BKC) NASAL (10:28)
[2024-03-17] MEDS: cefTRIAXone 2 GM/NS 100 ML 2 GM/100 ML BAG IVPB (11:40)
== END 2024-03-17 13:40 | disposition home or self-care (01) | DRG 863 ==
LOC: ANHED 19:33 → ANH3MEDSUR 20:31
PROVIDERS: Admitting Provider Internal Medicine; Emergency Provider Preventive Medicine Aerospace Medicine; PCP Internal Medicine; Visit Provider Nurse Practitioner
DX: T81.43XA Infection following a procedure, organ and space surgical site, initial encounter (principal); H70.001 Acute mastoiditis without complications, right ear; G89.18 Other acute postprocedural pain; R11.2 Nausea with vomiting, unspecified; H92.01 Otalgia, right ear; F17.200 Nicotine dependence, unspecified, uncomplicated; F41.9 Anxiety disorder, unspecified; L93.0 Discoid lupus erythematosus; F17.210 Nicotine dependence, cigarettes, uncomplicated; J44.9 Chronic obstructive pulmonary disease, unspecified; N80.9 Endometriosis, unspecified; Z90.722 Acquired absence of ovaries, bilateral; Z90.49 Acquired absence of other specified parts of digestive tract
CPT/HCPCS: 36415; 80048; 80053; 83605; 85025; 87040; 96361; 96365; 96375; 96376; 99285; A9270; G0378; J0696; J1170; J1200; J2270; J2405; J3370; J7120

== ENCOUNTER 2024-06-07 14:58 | Emergency (ER) | payer BC, SELFPAY ==
--- NOTE | ~2024-06-07 | CT_ITS ---
EXAMINATION: CT abdomen pelvis w con DATE: 06/07/2024 19:00 INDICATION: Gastrointestinal bleed TECHNIQUE: Computed tomography (CT) of the abdomen and pelvis was performed without intravenous contr ast. Automated exposure control and iterative reconstruction technique were employed. The dose-length product was 291.36 mGy-cm. COMPARISON: 07/01/2021 FINDINGS: Mild dependent atelectasis in bilateral lower lobes. Heart size normal. No pericardial or pleural eff usion. Liver, gallbladder, spleen, pancreas, bilateral adrenal glands and kidneys are normal. Postope rative change of prior appendectomy with surgical clips posterior to the cecum. There is some fluid s cattered throughout nondilated small bowel. No bowel obstruction. There are few scattered colonic div erticula without adjacent from trace stranding to suggest diverticulitis. Bladder is normal. The uter us and bilateral ovaries are not identified and have likely been surgically resected. No free intrape ritoneal gas or fluid. No pathologically enlarged abdominal or pelvic lymphadenopathy. Mild lumbar an d moderate lower thoracic spondylosis. Transitional partially lumbarized S1 segment. IMPRESSION: 1. No acute intra-abdominal/pelvic process. Reviewed, dictated and finalized at location A.
[2024-06-07 15:06] VITALS: BP 136/84; PULSE 101; RESP 16; TEMP 36.5; O2SAT 100
--- NOTE | 2024-06-07 18:17 | ED.GENADULT ---
HPI - General Adult General Chief complaint: GI Bleed <Josafat Mir APRN - Last Filed: 06/07/24 18:18> Stated complaint: Rectal Bleeding <Josafat Mir APRN - Last Filed: 06/07/24 18:18> Time Seen by Provider: 06/07/24 18:17 <Josafat Mir APRN - Last Filed: 06/07/24 18:18> patient presents with generalized abdominal pain and bright red blood that started yesterday. patient denies being on blood thinners. decreased appetite, headache and nausea. PE: A&OX3, BS non-labor, generalized abdominal pain with palpation, moving all extremities <Josafat Mir APRN - Last Filed: 06/07/24 18:18> History of Present Illness HPI narrative: patient is a 38-year-old female presents emergency department with chief complaint of rectal bleeding. Patient reports he has been having some abdominal discomfort the last 24 hours reports that she noticed some bright red blood in the toilet and went back patient denies lightheadedness denies feeling like she is going to pass out patient reports not on any blood thinners reports no trauma. <Juan Ruby MD - Last Filed: 06/07/24 21:17> Related Data Home medications: Home Medications Medication Instructions Recorded Confirmed alprazolam 0.5 mg tablet (Xanax) 0.5 mg PO QHS PRN anxiety 05/31/21 03/15/24 meloxicam 15 mg tablet 15 mg PO DAILY 06/02/22 03/15/24 rituximab 10 mg/mL 10 mg IV Q4-6M 08/25/22 03/15/24 concentrate,intravenous (Rituxan) hydroxychloroquine 200 mg tablet 300 mg PO DAILY 01/30/23 03/15/24 (Plaquenil) <Josafat Mir APRN - Last Filed: 06/07/24 18:18> Allergies/adverse reactions: Allergies Allergy/AdvReac Type Severity Reaction Status Date / Time vancomycin AdvReac Intermediate Redness of Verified 06/07/24 20:34 Skin morphine AdvReac Itching Verified 06/07/24 20:34 <Josafat Mir APRN - Last Filed: 06/07/24 18:18> Review of Systems Review of Systems: A 10 system review of systems was completed on the patient and is negative except for what is stated in the HPI. Nursing and ancillary documentation was reviewed. <Juan Ruby MD - Last Filed: 06/07/24 21:17> [facility] Past Medical History Medical History: Medical History Abdominal pain Anxiety Bilateral ankle fractures Discoid lupus just skin Endometriosis HSV (herpes simplex virus) infection Migraine Occult blood in stools Right wrist fracture <Josafat Mir APRN - Last Filed: 06/07/24 18:18> Surgical History Surgical History: Surgical History H/O exploratory laparotomy exploratory laparotomy, lysis of adhesions, washout, placement of pelvic drain History of bilateral salpingectomy 06/28/21 History of endometrial ablation 2018? History of laparoscopy 9 on ovaries and 3 on right knee History of left oophorectomy History of right oophorectomy 06/28/21, with excision and cauterization of endometriosis Hx of abdominal surgery 07/02/21, Exploratory laparoscopy, lysis of adhesions, wash out, pelvic drain Hx of appendectomy Hx of right knee surgery x3 [place] teeth extracted <Josafat Mir APRN - Last Filed: 06/07/24 18:18> Family History Family History: Family History Father Hypertension Diabetes mellitus Heart problem Mother Hypertension Asthma Anxiety Depression Cerebrovascular accident Other Family history of arthritis Family history of migraine headaches <Josafat Mir APRN - Last Filed: 06/07/24 18:18> Social History Social History: Social History Smoking packs per day: 0.5 Smoking cigarettes per day: 10.0 Years smoked: 20 Smoking pack-years: 10.00 Smoking status: Current every day smoker Tobacco type: cigare
[2024-06-07 18:26] LABS: Basophils Absolute Auto 0.1 K/mm3 (0.0-0.1); Basophils Percent Auto 0.9 % (0.2-1.2); Eosinophils Absolute Auto 0.3 K/mm3 (0-0.3); Eosinophils Percent Auto 1.9 % (0-4.4); Hematocrit 39.7 % (37.0-47.0); Hemoglobin 13.8 g/dL (12.0-15.0); Immature Granulocyte Absolute 0.05 K/mm3 (0.00-0.031); Immature Granulocyte Percent A 0.3 % (0-0.5); Lymphocytes Absolute Auto 5.29 K/mm3 (0.9-3.2); Lymphocytes Percent Auto 35.3 % (18.3-44.2); Mean Corpuscular HGB Conc 34.8 g/dl (32-36); Mean Corpuscular Hemoglobin 31.4 pg (26-34); Mean Corpuscular Volume 90.4 fl (80-100); Mean Platelet Volume 9.9 fl (7.4-10.4); Monocytes Absolute Auto 1.4 K/mm3 (0.1-0.6); Monocytes Percent Auto 9.5 % (2.6-8.5); Neutrophils Absolute Auto 7.8 K/mm3 (1.3-6.7); Neutrophils Percent Auto 52.1 % (45.5-73.1); Platelet Count Result 443 k/mm3 (150-375); Red Blood Count 4.39 M/mm3 (4.2-5.4); Red Cell Distribution Width 13.8 % (11.5-14.5)
[2024-06-07 18:36] LABS: INR 0.9; Prothrombin Time 13.1 Seconds (11.1-14.7)
[2024-06-07 18:37] LABS: Partial Thromboplastin Time 23.8 Seconds (22.3-36.8)
[2024-06-07 18:41] LABS: Alanine Aminotransferase 19 U/L (6-35); Albumin Level 4.9 g/dL (3.5-5.1); Alkaline Phosphatase 73 U/L (38-126); Anion Gap 11 mmol/L (4-12); Aspartate Amino Transferase 25 U/L (14-36); Bilirubin,Total 0.3 mg/dL (0.2-1.3); Blood Urea Nitrogen 18 mg/dL (7-17); Calcium 9.6 mg/dL (8.4-10.2); Carbon Dioxide 24 mmol/L (22-30); Chloride 104 mmol/L (98-107); Estimated CRCL calculation 78 ml/min; Estimated Glomerular Filt Rate > 60; Glucose 92 mg/dL (65-110); Sodium 139 mmol/L (137-145)
[2024-06-07 20:32] VITALS: O2SAT 92
[2024-06-07 20:33] VITALS: BP 137/106; PULSE 69; RESP 17; O2SAT 100
[2024-06-07 20:34] VITALS: BP 137/106; O2SAT 96
[2024-06-07 20:41] LABS: Hematocrit 36.5 % (37.0-47.0); Hemoglobin 12.8 g/dL (12.0-15.0)
[2024-06-07 20:45] VITALS: O2SAT 100
[2024-06-07 21:00] VITALS: O2SAT 99
== END 2024-06-07 21:28 | disposition home or self-care (01) ==
PROVIDERS: Emergency Medicine; Emergency Provider Emergency Medicine; PCP Internal Medicine
DX: K62.5 Hemorrhage of anus and rectum (principal); R10.9 Unspecified abdominal pain; L93.0 Discoid lupus erythematosus; F41.9 Anxiety disorder, unspecified; Z87.891 Personal history of nicotine dependence; Z90.79 Acquired absence of other genital organ(s); Z90.722 Acquired absence of ovaries, bilateral; Z79.620 Long term (current) use of immunosuppressive biologic; Z79.69 Long term (current) use of other immunomodulators and immunosuppressants; Z79.899 Other long term (current) drug therapy
CPT/HCPCS: 36415; 74177; 80053; 85014; 85018; 85025; 85610; 85730; 86850; 86900; 86901; 99284; Q9967

== ENCOUNTER 2024-06-28 11:12 | Day surgery (SDC) | payer BC, SELFPAY ==
[2024-06-20 14:33] VITALS: BMI 25.2
[2024-06-28 11:25] VITALS: BP 124/77; PULSE 100; RESP 18; TEMP 36.6; O2SAT 99
[2024-06-28] MEDS: LACTATED RINGERS 1,000 ML 150 ML IV CONT (11:27)
--- NOTE | 2024-06-28 11:43 | WPDANESEPPF ---
Anes - Initial Pre Proc Eval Procedure: Operation Date: 06/28/24 14:00 Proposed Procedures p Esophagogastroduodenoscopy & Colonoscopy - Osbaldo Gloria MD Date/Time: 06/28/24 11:43 Surgeon: Osbaldo Gloria MD Pre Op Diagnosis: Abd. Pain, Hemorrhage of anus/rectum Patient Data Age: 38 Gender: F Height: 1.6 m Weight: 62.3 kg Last Vital Signs Temp 97.9 F 06/28/24 11:25 Pulse 100 06/28/24 11:25 Resp 18 06/28/24 11:25 BP 124/77 06/28/24 11:25 Pulse Ox 99 06/28/24 11:25 O2 Del Method Room Air 06/28/24 11:25 Allergies Allergy/AdvReac Type Severity Reaction Status Date / Time vancomycin AdvReac Intermediate Redness of Verified 06/28/24 11:24 Skin morphine AdvReac Itching Verified 06/28/24 11:24 Home Medications Medication Instructions Recorded Confirmed Type alprazolam 0.5 mg tablet (Xanax) 0.5 mg PO QHS PRN anxiety 05/31/21 06/28/24 History meloxicam 15 mg tablet 15 mg PO DAILY 06/02/22 06/28/24 History rituximab 10 mg/mL 10 mg IV Q4-6M 08/25/22 06/28/24 History concentrate,intravenous (Rituxan) hydroxychloroquine 200 mg tablet 300 mg PO DAILY 01/30/23 06/28/24 History (Plaquenil) estradiol-norethindrone acet 1 2 tablet PO DAILY #168 tabs 01/31/23 06/28/24 Rx mg-0.5 mg tablet ondansetron 4 mg disintegrating 4 mg PO Q8H PRN nausea and 03/12/24 06/28/24 Rx tablet vomiting #20 tabs diphenhydramine HCl 25 mg capsule 50 mg PO Q4H PRN Itching #0 caps 03/17/24 06/28/24 Rx naloxone 4 mg/actuation nasal 4 mg intranasal Q2-3M PRN opioid 03/17/24 06/28/24 Rx spray (Narcan) overdose #2 ea oxycodone 5 mg tablet 5 mg PO Q6HR PRN severe pain #21 03/17/24 06/28/24 Rx tabs escitalopram oxalate 20 mg tablet 20 mg PO HS #60 tabs 06/14/24 06/28/24 Rx (Lexapro) Patient hx anesthesia problems: none Family hx anesthesia problems: none Results Review: All pre-operative results and documents have been reviewed as part of the pre-operative evaluation. [facility] Past Medical History Medical History Abdominal pain Anxiety Bilateral ankle fractures Discoid lupus just skin Endometriosis HSV (herpes simplex virus) infection Migraine Occult blood in stools Right wrist fracture Surgical History Surgical History H/O exploratory laparotomy exploratory laparotomy, lysis of adhesions, washout, placement of pelvic drain History of bilateral salpingectomy 06/28/21 History of endometrial ablation 2017? History of laparoscopy 9 on ovaries and 3 on right knee History of left oophorectomy History of right oophorectomy 06/28/21, with excision and cauterization of endometriosis Hx of abdominal surgery 07/02/21, Exploratory laparoscopy, lysis of adhesions, wash out, pelvic drain Hx of appendectomy Hx of right knee surgery x3 [place] teeth extracted Family History Family History Father Hypertension Diabetes mellitus Heart problem Mother Hypertension Asthma Anxiety Depression Cerebrovascular accident Other Family history of arthritis Family history of migraine headaches Social History Social History Smoking packs per day: 0.5 Smoking cigarettes per day: 10.0 Years smoked: 20 Smoking pack-years: 10.00 Smoking status: Current every day smoker Tobacco type: cigarettes Smoking end date: 11/06/15 Alcohol intake: current Drinks per week: 4 Alcohol use details: Socially Substance use: never Substance use type: does not use Do You Feel Safe in your Home?: Yes Lack of Transportation: No Lack of Food: Never True Current Housing: I Have Housing Concerned About Future Housing: No Difficulty Paying Gas/Electric Bills: No Difficulty Paying for Meds: No Currently Unemp
--- NOTE | 2024-06-28 11:56 | PM.HPGS ---
History of Present Illness History of Present Illness Consent: Risks, benefits, and alternatives have been discussed and questions answered. Patient agrees to proceed with procedure. Chief complaint: Abd. Pain, Hemorrhage of anus/rectum Narrative: Yamilex Ruiz is a 38 year old female with abdominal discomfort and postprandial loose stools, also had episode of rectal bleeding. She had colonoscopy and egd 2021 Review of Systems Review of Systems: All systems reviewed & are unremarkable except as noted in HPI and below PMFSH Past Medical History Medical History Abdominal pain Anxiety Bilateral ankle fractures Discoid lupus just skin Endometriosis HSV (herpes simplex virus) infection Migraine Occult blood in stools Right wrist fracture Surgical History Surgical History H/O exploratory laparotomy exploratory laparotomy, lysis of adhesions, washout, placement of pelvic drain History of bilateral salpingectomy 06/28/21 History of endometrial ablation 2017? History of laparoscopy 9 on ovaries and 3 on right knee History of left oophorectomy History of right oophorectomy 06/28/21, with excision and cauterization of endometriosis Hx of abdominal surgery 07/02/21, Exploratory laparoscopy, lysis of adhesions, wash out, pelvic drain Hx of appendectomy Hx of right knee surgery x3 [place] teeth extracted Family History Family History Father Hypertension Diabetes mellitus Heart problem Mother Hypertension Asthma Anxiety Depression Cerebrovascular accident Other Family history of arthritis Family history of migraine headaches Social History Social History Smoking packs per day: 0.5 Smoking cigarettes per day: 10.0 Years smoked: 20 Smoking pack-years: 10.00 Smoking status: Current every day smoker Tobacco type: cigarettes Smoking end date: 11/06/15 Alcohol intake: current Drinks per week: 4 Alcohol use details: Socially Substance use: never Substance use type: does not use Do You Feel Safe in your Home?: Yes Lack of Transportation: No Lack of Food: Never True Current Housing: I Have Housing Concerned About Future Housing: No Difficulty Paying Gas/Electric Bills: No Difficulty Paying for Meds: No Currently Unemployed: No Education: High School Diploma/GED Difficulty w/ Childcare or Family Care: No Living arrangements: alone Spiritual care concerns: No Meds Home Medications and Allergies Home Medications Medication Instructions Recorded Confirmed Type alprazolam 0.5 mg tablet (Xanax) 0.5 mg PO QHS PRN anxiety 05/31/21 06/28/24 History meloxicam 15 mg tablet 15 mg PO DAILY 06/02/22 06/28/24 History rituximab 10 mg/mL 10 mg IV Q4-6M 08/25/22 06/28/24 History concentrate,intravenous (Rituxan) hydroxychloroquine 200 mg tablet 300 mg PO DAILY 01/30/23 06/28/24 History (Plaquenil) estradiol-norethindrone acet 1 2 tablet PO DAILY #168 tabs 01/31/23 06/28/24 Rx mg-0.5 mg tablet ondansetron 4 mg disintegrating 4 mg PO Q8H PRN nausea and 03/12/24 06/28/24 Rx tablet vomiting #20 tabs diphenhydramine HCl 25 mg capsule 50 mg PO Q4H PRN Itching #0 caps 03/17/24 06/28/24 Rx naloxone 4 mg/actuation nasal 4 mg intranasal Q2-3M PRN opioid 03/17/24 06/28/24 Rx spray (Narcan) overdose #2 ea oxycodone 5 mg tablet 5 mg PO Q6HR PRN severe pain #21 03/17/24 06/28/24 Rx tabs escitalopram oxalate 20 mg tablet 20 mg PO HS #60 tabs 06/14/24 06/28/24 Rx (Lexapro) Allergies Allergy/AdvReac Type Severity Reaction Status Date / Time vancomycin AdvReac Intermediate Redness of Verified 06/28/24 11:24 Skin morphine AdvReac Itching Verified 06/28/24 11:24 Vital Signs Vital Signs - 24 hr 06/28
[2024-06-28 12:19] VITALS: BP 104/67; PULSE 91; RESP 22; O2SAT 98
[2024-06-28 12:29] VITALS: BP 102/73; PULSE 82; RESP 18; O2SAT 99
[2024-06-28 12:39] VITALS: BP 105/71; PULSE 78; RESP 16; O2SAT 99
--- NOTE | 2024-06-28 13:30 | SUR.OPER ---
EGD end 1205, Colonoscopy start 1209
== END 2024-06-28 12:45 | disposition home or self-care (01) ==
PROVIDERS: PCP Internal Medicine; Visit Provider Internal Medicine Gastroenterology
PROC: 0DJ08ZZ Inspection of Upper Intestinal Tract, Via Natural or Artificial Opening Endoscopic (ICD-10-PCS; CPT 43235; principal; 2024-06-28 14:00)
DX: R19.5 Other fecal abnormalities (principal); F41.9 Anxiety disorder, unspecified; N80.9 Endometriosis, unspecified; F17.210 Nicotine dependence, cigarettes, uncomplicated; Z79.891 Long term (current) use of opiate analgesic; Z98.890 Other specified postprocedural states; Z82.49 Family history of ischemic heart disease and other diseases of the circulatory system
CPT/HCPCS: 43239; 45380; 88305; J2704; J7120

== ENCOUNTER 2024-07-25 09:14 | Outpatient (CLI) | payer BC, SELFPAY ==
[2024-07-25 10:14] LABS: Cholesterol 226 mg/dL (0-200); HDL Direct 71 mg/dL; Triglycerides 121 mg/dL (<150)
[2024-07-25 10:26] LABS: LDL Cholesterol Direct 130 mg/dL
[2024-07-29 12:48] LABS: Testosterone Free 1.5 pg/mL (0.1-6.4); Testosterone Total 11 ng/dL (2-45)
[2024-07-30 15:24] LABS: Estrogen 49 pg/mL
== END 2024-07-25 09:15 | disposition home or self-care (01) ==
LOC: ANHLAB 09:15
PROVIDERS: PCP Internal Medicine; Visit Provider Obstetrics & Gynecology
DX: N95.1 Menopausal and female climacteric states (principal)
CPT/HCPCS: 36415; 80061; 82672; 84402; 84403; 84443

== ENCOUNTER 2024-10-13 13:56 | Emergency (ER) | payer BC, SELFPAY ==
[2024-10-13] VITALS (13 sets, daily range): BP systolic 121–135; BP diastolic 81–94; PULSE 84–106; RESP 13–21; TEMP 36.8; O2SAT 94–98
--- NOTE | ~2024-10-13 | CT_ITS ---
EXAMINATION: CTA chest PE protocol DATE: 10/13/2024 19:22 INDICATION: Chest pain, epigastric pain radiating to back TECHNIQUE: Computed tomography angiography (CTA) of the chest was performed with 100 mL Omnipaque-350 intravenous contrast timed to evaluate the pulmonary arteries. Coronal maximum intensity projection 3D-reconstructions were created by the technologist. Automated exposure control and iterative reconst ruction technique were employed. Exam dose: 169.27 mGy-cm total exam DLP. COMPARISON: 10/13/2024 PA and lateral chest 05/12/2001 CTA chest abdomen FINDINGS: There is diagnostic contrast enhancement of the pulmonary arteries and no evidence of pulmo nary embolism. No thoracic aortic aneurysm or dissection. No hilar or mediastinal mass lesion or lymphadenopathy. Normal heart size. No pericardial or pleural effusion. Normal morphology of the adrenal glands. Included upper abdominal structures are unremarkable. Occasional small bullae in the apical areas. There is mild linear atelectasis or scarring at the base s of the lower lobes, left greater than right. No pulmonary consolidation or pulmonary mass lesion is noted. IMPRESSION: No evidence of pulmonary embolism Mild linear atelectasis at the bases of the lower lobes, left greater than right Reviewed, dictated and finalized at Location A. Reviewed, dictated and finalized at location A. KER AND PACKER IMPRESSION: No evidence of pulmonary embolism Mild linear atelectasis at the bases of the lower lobes, left greater than righ t
--- NOTE | ~2024-10-13 | US_ITS ---
US abdomen limited DATE: 10/13/2024 18:44 INDICATION: Epigastric abdominal pain TECHNIQUE: Real-time imaging of the liver, pancreas, gallbladder COMPARISON: 06/07/2024 CT abdomen pelvis 08/08/2022 complete abdominal ultrasound examination, reported normal FINDINGS: No hepatic or pancreatic space-occupying mass lesion is detected. Normal hepatopedal portal venous flow direction. No gallstones or gallbladder wall thickening or abnormal pericholecystic fluid collection. The common bile duct measures 3.9 mm, normal. IMPRESSION: No significant abnormality Reviewed, dictated and finalized at Location [facility]. Reviewed, dictated and finalized at location A. NDANCE CLERK IMPRESSION: No significant abnormality
--- NOTE | ~2024-10-13 | XR_ITS ---
XR chest 2V DATE: 10/13/2024 14:46 INDICATION: Chest pain TECHNIQUE: PA and lateral views COMPARISON: 05/12/2021 CTA chest abdomen pelvis 05/11/2021 2 view chest FINDINGS: Heart size is within normal range. No hilar or mediastinal enlargement. No pulmonary vascul ar congestion or pleural effusion or pneumothorax. The lungs are clear of consolidation. Included skeletal structures are unremarkable other than minimal thoracic levoscoliosis. IMPRESSION: No active cardiopulmonary disease Reviewed, dictated and finalized at location A. ICAL DEPENDENCY COUNSELOR
--- NOTE | 2024-10-13 13:58 | ECG_ITS ---
Test Date: 2024-10-13 14:33:14 Measurements Intervals [place] Rate: 96 P: 60 AR: 137 QRS: 66 QRSD: 94 T: 11 QT: 269 QTc: 341 Interpretive Statements SINUS RHYTHM POSSIBLE LEFT ATRIAL ENLARGEMENT [-0.1mV P WAVE IN V1/V2] POSSIBLE RIGHT VENTRICULAR CONDUCTION DELAY [RSR (QR) IN V1/V2] NONSPECIFIC T-WAVE ABNORMALITY No previous ECG available for comparison Electronically Signed On 10-13-2024 15:05:50 CANAL SUPERINTENDENT by Jeramy Thorpe M.D.
[2024-10-13 14:42] LABS: Basophils Absolute Auto 0.1 K/mm3 (0.0-0.1); Basophils Percent Auto 0.4 % (0.2-1.2); Eosinophils Absolute Auto 0.1 K/mm3 (0-0.3); Eosinophils Percent Auto 0.6 % (0-4.4); Hematocrit 36.9 % (37.0-47.0); Immature Granulocyte Absolute 0.08 K/mm3 (0.00-0.031); Immature Granulocyte Percent A 0.5 % (0-0.5); Lymphocytes Absolute Auto 2.86 K/mm3 (0.9-3.2); Lymphocytes Percent Auto 16.8 % (18.3-44.2); Mean Corpuscular HGB Conc 35.2 g/dl (32-36); Mean Corpuscular Hemoglobin 31.6 pg (26-34); Mean Corpuscular Volume 89.6 fl (80-100); Mean Platelet Volume 9.8 fl (7.4-10.4); Monocytes Absolute Auto 1.3 K/mm3 (0.1-0.6); Monocytes Percent Auto 7.9 % (2.6-8.5); Neutrophils Absolute Auto 12.6 K/mm3 (1.3-6.7); Neutrophils Percent Auto 73.8 % (45.5-73.1); Platelet Count Result 438 k/mm3 (150-375); Red Blood Count 4.12 M/mm3 (4.2-5.4); Red Cell Distribution Width 13.1 % (11.5-14.5)
[2024-10-13 14:56] LABS: Alanine Aminotransferase 40 U/L (6-35); Albumin Level 4.3 g/dL (3.5-5.1); Alkaline Phosphatase 100 U/L (38-126); Anion Gap 6 mmol/L (4-12); Aspartate Amino Transferase 34 U/L (14-36); Bilirubin,Total 0.7 mg/dL (0.2-1.3); Blood Urea Nitrogen 7 mg/dL (7-17); Calcium 9.5 mg/dL (8.4-10.2); Carbon Dioxide 28 mmol/L (22-30); Chloride 105 mmol/L (98-107); Estimated CRCL calculation 89 ml/min; Estimated Glomerular Filt Rate > 60; Glucose 100 mg/dL (65-110); Lipase 61 U/L (23-300); Potassium 3.8 mmol/L (3.4-5.0); Sodium 139 mmol/L (137-145)
[2024-10-13 15:07] LABS: Troponin I < 0.012 ng/mL (0.000-0.034)
[2024-10-13 15:13] LABS: Prothrombin Time 13.1 Seconds (11.1-14.7)
[2024-10-13 15:14] LABS: Partial Thromboplastin Time 27.3 Seconds (22.3-36.8)
[2024-10-13] MEDS: ASPIRIN 81 MG CHEWABLE TABLET 324 MG PO (17:13)
[2024-10-13 18:26] LABS: Troponin I < 0.012 ng/mL (0.000-0.034)
[2024-10-13] MEDS: HYDROmorphone HCL INJ (*CRX) 1 MG/ML SYR IV PUSH (18:54)
[2024-10-13] MEDS: ONDANSETRON INJ 4 MG/2 ML VIAL IV PUSH (18:54)
--- NOTE | 2024-10-13 19:52 | PC.NURSE ---
Report received from RADHA Godinez. Assumed care of patient at this time.
[2024-10-13] MEDS: oxyCODONE HCL (*CRX) 5 MG TAB IR PO (20:18)
--- NOTE | 2024-10-13 20:20 | ECG_ITS ---
Test Date: 2024-10-13 20:32:48 Measurements Intervals [place] Rate: 86 P: 48 PA: 134 QRS: 59 QRSD: 98 T: 28 QT: 286 QTc: 343 Interpretive Statements SINUS RHYTHM POSSIBLE LEFT ATRIAL ENLARGEMENT [-0.1mV P-WAVE IN V1/V2] POSSIBLE RIGHT VENTRICULAR CONDUCTION DELAY [RSR (QR) IN V1/V2] NONSPECIFIC T-WAVE ABNORMALITY Compared to ECG 10/13/2024 14:33:14 No significant changes Electronically Signed On 10-14-2024 12:47:32 GAME PROGRAMER by Ben Trimble M.D.
--- NOTE | 2024-10-13 21:01 | ED_ITS ---
HPI - Chest Pain General Chief Complaint: Chest Pain Stated Complaint: chest pain Time Seen by Provider: 10/13/24 17:02 History of Present Illness HPI narrative: The patient is a 39-year-old female with a past medical history including COPD, hypertension, hyperlipidemia, lupus, recent EGD and colonoscopy by Dr. Gan without any concerning findings. Patient was seen at outside hospital yesterday for similar complaints of epigastric And right-sided upper quadrant, right-sided back and chest discomfort. She said that they did a contrast CT as the outside facility and told that she had some inflammatory changes but were nonspecific and did not detail further. They sent her home on some anti- inflammatory medications. She presents today for repeat evaluation and 2nd opin ion. She states that she is having epigastric chest discomfort radiating towards her back and right-sided shoulder blade. Worse with movement and deep inhalation. No history of DVT or PE. She did have a recent endoscopy in June of this year that was done by Gastroenterology Dr. Gan without any concerning findings on the biopsy of the stomach and small bowel. Overall patient has been well except for these last few days were she has been having these symptoms. Denies any fevers, chills, vomiting, diarrhea, constipation. No hematuria, dysuria or any GI/ symptoms otherwise. No other recent procedures or illnesses. Related Data Home Medications Medication Instructions Recorded Confirmed alprazolam 0.5 mg tablet (Xanax) 0.5 mg PO QHS PRN anxiety 05/31/21 08/01/24 meloxicam 15 mg tablet 15 mg PO DAILY 06/02/22 08/01/24 rituximab 10 mg/mL 10 mg IV Q4-6M 08/25/22 08/01/24 concentrate,intravenous (Rituxan) hydroxychloroquine 200 mg tablet 300 mg PO DAILY 01/30/23 08/01/24 (Plaquenil) Allergies Allergy/AdvReac Type Severity Reaction Status Date / Time vancomycin AdvReac Intermediate Redness of Verified 10/13/24 17:11 Skin morphine AdvReac Itching Verified 10/13/24 17:11 Review of Systems Review of Systems: As reviewed above in HPI [facility] Past Medical History Medical History Abdominal pain Anxiety Bilateral ankle fractures Discoid lupus just skin Endometriosis HSV (herpes simplex virus) infection Migraine Occult blood in stools Rheumatoid arthritis Right wrist fracture Surgical History Surgical History H/O exploratory laparotomy exploratory laparotomy, lysis of adhesions, washout, placement of pelvic drain History of bilateral salpingectomy 06/28/21 History of endometrial ablation 2018? History of laparoscopy 9 on ovaries and 3 on right knee History of left oophorectomy History of right oophorectomy 06/28/21, with excision and cauterization of endometriosis Hx of abdominal surgery 07/02/21, Exploratory laparoscopy, lysis of adhesions, wash out, pelvic drain Hx of appendectomy Hx of right knee surgery x3 [place] teeth extracted Family History Family History Father Hypertension Diabetes mellitus Heart problem Mother Hypertension Asthma Anxiety Depression Cerebrovascular accident Other Family history of arthritis Family history of migraine headaches Social History Social History Smoking packs per day: 0.5 Smoking cigarettes per day: 10.0 Years smoked: 20 Smoking pack-years: 10.00 Smoking status: Current every day smoker Tobacco type: cigarettes Smoking end date: 11/06/15 Alcohol intake: current Drinks per week: 4 Alcohol use details: Socially Substance use: never Substance use type: does not use Do You Feel Safe in your Home?: Yes Lack of Transportation: No Lack of Food: Never True Current Housing: I Have Housing Concerned About Future Housing: No Difficulty Paying Gas/Electric Bills: No Difficulty Paying for Meds: No Currently Unemployed: No Education: High School Diploma/GED Difficulty w/ Childcare or Family Care: No Living arrangements: alone Spiritual care concerns: No Exam Narrative: GENERAL: [Well-appearing, well-nourished, and in no acute distress.] HEAD: [Normocephalic, atraumatic.] EYES: [PERRLA and EOMI.] ENT: Nares clear, no rhinorrhea or epistaxis. Mucous membranes moist. NECK: Supple. CHEST: [Clear to auscultation. No respiratory distress.] HEART: [Regular rate and rhythm]. No murmur heard. [Normal peripheral pulses.] ABDOMEN: [Soft, nondistended], [nontender], [No rigidity or guarding] EXTREMITIES: Normal range of motion. [No edema.] SKIN: Warm, dry, no rash. NEURO: [No focal deficits]. Alert and oriented [x3.] PSYCH: [Normal mood and affect.] Course Vital Signs Vital signs: Vital Signs Temperature 36.8 C 10/13/24 14:04 Pulse Rate 106 H 10/13/24 14:04 Respiratory Rate 20 10/13/24 14:04 Blood Pressure 123/94 H 10/13/24 14:04 Pulse Oximetry 96 10/13/24 14:04 Oxygen Delivery Room Air 10/13/24 14:04 Temperature 36.8 C 10/13/24 14:04 Pulse Rate 90 10/13/24 20:15 Respiratory Rate 17 10/13/24 20:15 Blood Pressure 121/90 10/13/24 19:01 Pulse Oximetry 95 10/13/24 20:15 Oxygen Delivery Room Air 10/13/24 16:29 MDM - Chest Pain MDM Narrative Medical decision making narrative: 39-year-old female with history of COPD, hyperlipidemia, migraines, potentially lupus, recent EGD and colonoscopy which were unremarkable. Presents today for repeat evaluation after having persistent epigastric and right-sided chest and back pain. Denies any trauma or injuries but states that it hurts to lay down flat and hurts to take a deep breath. No history of DVT or PE. Vital signs are reassuring without any significant blood pressure concerns, slightly tachycardic with a pulse of 106 but no hypoxia or fever. Has reassuring ex amination otherwise appears well. Not any acute distress, benign abdominal examination, no tenderness with palpation of the chest wall, no crepitus or lesions or skin rashes. A broad workup was ordered including CBC, CMP, lipase, troponin, EKG, chest x-ray. Given her recent procedure and vague epigastric/ chest/ back discomfort but considerations for a thromboembolic process such as PE are high. given an elevated [place] criteria CT angiography of her chest was ordered at this time. a right upper quadrant ultrasound was also obtained to see if there is any liver or gallbladder pathology that could mimic her symptoms causing colic or cholelithiasis/cystitis. patient was provided Zofran and Dilaudid for symptom control. Workup reveals a leukocytosis of 17.0 but this is also chronically elevated On her previous laboratory studies and nonspecific. No anemia, normal platelets. Coagulation studies normal, normal electrolytes, normal renal and hepatic function panel. Negative lipase. Negative troponin x3. Chest x-ray shows no acute cardiopulmonary process. Right upper quadrant ultrasound shows unremarkable liver and gallbladder without any acute findings. CT angiography of the chest revealed no acute pathology in the chest or the arteries, no PE found. EKG was nonischemic and serially monitored. Repeat vital signs reassuring and her symptoms have been resolved since he got her medications. Patient was re-evaluated multiple times and given the improvement her symptoms and lack of acute findings on her workup including negative cardiac assessment and CT angiography I believe she is stable for discharge home and we discussed outpatient primary care follow-up as well as GI follow-up for any residual symptoms. She expressed desire for some pain control medications if she has any recurrence and we did give her short course sent to her pharmacy. Patient felt comfortable with discharge at this time and was given strict return precautions and verbalized understanding of them. Medical Records Data Attestation: I reviewed the patient's medical records. Lab Data Attestation: I reviewed the patient's lab results. 10/13/24 14:34 10/13/24 14:34 Labs: Lab Results 10/13/24 10/13/24 10/13/24 Range/Units 14:34 17:56 20:29 WBC 17.0 H (4.5-10.0) K/mm3 RBC 4.12 L (4.2-5.4) M/mm3 Hgb 13.0 (12.0-15.0) g/dL Hct 36.9 L (37.0-47.0) % MCV 89.6 (80-100) fl MCH 31.6 (26-34) pg MCHC 35.2 (32-36) g/dl RDW 13.1 (11.5-14.5) % Plt Count 438 H (150-375) k/mm3 MPV 9.8 (7.4-10.4) fl Immature Gran % (Auto) 0.5 (0-0.5) % Neut % (Auto) 73.8 H (45.5-73.1) % Lymph % (Auto) 16.8 L (18.3-44.2) % [place] % (Auto) 7.9 (2.6-8.5) % Eos % (Auto) 0.6 (0-4.4) % Baso % (Auto) 0.4 (0.2-1.2) % Lymph # (Auto) 2.86 (0.9-3.2) K/mm3 [place] # (Auto) 1.3 H (0.1-0.6) K/mm3 Eos # (Auto) 0.1 (0-0.3) K/mm3 Baso # (Auto) 0.1 (0.0-0.1) K/mm3 Abs Immat Gran (auto) 0.08 H (0.00-0.031) K/mm3 Absolute Neuts (auto) 12.6 H (1.3-6.7) K/mm3 Absolute Nucleated RBC 0.000 (0.0-0.012) K/mm3 Nucleated RBC % 0.0 (0.0-0.2) % PT 13.1 (11.1-14.7) Seconds INR 1.0 APTT 27.3 (22.3-36.8) Seconds Sodium 139 (137-145) mmol/L Potassium 3.8 (3.4-5.0) mmol/L Chloride 105 (98-107) mmol/L Carbon Dioxide 28 (22-30) mmol/L Anion Gap 6 (4-12) mmol/L BUN 7 D (7-17) mg/dL Creatinine 0.60 L (0.7-1.0) mg/dL Estim Creat Clear Calc 89 ml/min Estimated GFR > 60 (59 - ) Glucose 100 (65-110) mg/dL Calcium 9.5 (8.4-10.2) mg/dL Total Bilirubin 0.7 (0.2-1.3) mg/dL AST 34 (14-36) U/L ALT 40 H (6-35) U/L Alkaline Phosphatase 100 (38-126) U/L Troponin I < 0.012 < 0.012 Pending (0.000-0.034) ng/mL Total Protein 8.0 (6.3-8.2) g/dL Albumin 4.3 (3.5-5.1) g/dL Lipase 61 (23-300) U/L Imaging Data Attestation: I personally reviewed and interpreted this imaging study as follows: My impression: Impressions Chest X-Ray 10/13/24 14:50 IMPRESSION: No active cardiopulmonary disease Abdomen Ultrasound 10/13/24 18:53 IMPRESSION: No significant abnormality Chest CTA 10/13/24 19:30 IMPRESSION: No evidence of pulmonary embolism Mild linear atelectasis at the bases of the lower lobes, left greater than right ECG Data EKG #1: Attestation: I personally reviewed and interpreted this ECG as follows: ECG completion date: 10/13/24 ECG completion time: 14:33 Prior ECG tracings: not available for review Interpretation: Regular rate rhythm an axis, normal sinus rhythm without any ST segment elevations, depressions or inversions. Normal QTC of 341, QRS normal 94, MS interval normal 137 prominent P-wave which could reflect left atrial enlargement but overall nonspecific. No acute ischemic changes or findings. Overall normal sinus rhythm. Discharge Plan Discharge Clinical Impression: Epigastric abdominal pain, Chest pain Patient Disposition: Home, Self-Care Condition: Stable Instructions: Antibiotic Form, Chest Pain (ED), Epigastric Pain (ED) Additional Instructions: your workup today was very reassuring include your CT scan and ultrasound of the abdomen. If you have persistent symptoms I would recommend going back to your athletic monitor for repeat evaluation. We have given you a small dose of pain medications for symptom control. If you have any worsening pain or any new symptoms please feel free to be get repeat evaluation in the ER at any time. Prescriptions: New oxycodone 5 mg capsule 5 mg PO Q8H PRN (Reason: pain) Qty: 10 0RF No Action meloxicam 15 mg tablet 15 mg PO DAILY estrogens-methyltestosterone [Covaryx] 1.25-2.5 mg tablet 1 tablet PO DAILY Qty: 30 1RF estradiol [Estrace] 0.01 % (0.1 mg/gram) cream See Rx Instructions .ROUTE DAILY Qty: 42.5 0RF Rx Instructions: apply a fingertip amount to external vaginal and labia area daily; for 14 days Imvexxy Maintenance Pack 10 mcg insert 10 mcg vaginal 2XW Qty: 24 1RF dicyclomine 10 mg capsule 10 mg PO QID Qty: 120 3RF ondansetron 4 mg tablet,disintegrating 4 mg PO Q8H PRN (Reason: nausea and vomiting) Qty: 20 2RF alprazolam [Xanax] 0.5 mg tablet 0.5 mg PO QHS PRN (Reason: anxiety) hydroxychloroquine [Plaquenil] 200 mg tablet 300 mg PO DAILY Rituxan 10 mg/mL Concentrate 10 mg IV Q4-6M Rx Instructions: Every 3 months escitalopram oxalate [Lexapro] 20 mg tablet 20 mg PO HS Qty: 60 0RF Follow-up/Referrals: All Garza DO [Primary Care Provider] - Time of Disposition: 20:21 Quality HEART score for chest pain patients History: slightly suspicious ECG: normal Age: < or = to 45 years Risk factors: 1 or 2 risk factors Troponin: < or = to 1x normal limit Heart score: 1
[2024-10-13 21:07] LABS: Troponin I < 0.012 ng/mL (0.000-0.034)
== END 2024-10-13 21:18 | disposition home or self-care (01) ==
PROVIDERS: Emergency Provider Student in an Organized Health Care Education/Training Program; PCP Internal Medicine
DX: R07.9 Chest pain, unspecified (principal); R10.13 Epigastric pain; F17.210 Nicotine dependence, cigarettes, uncomplicated; J44.9 Chronic obstructive pulmonary disease, unspecified; I10 Essential (primary) hypertension; E78.5 Hyperlipidemia, unspecified; M32.9 Systemic lupus erythematosus, unspecified; F41.9 Anxiety disorder, unspecified; M06.9 Rheumatoid arthritis, unspecified
CPT/HCPCS: 36415; 71046; 71275; 76705; 80053; 83690; 84484; 85025; 85610; 85730; 93005; 96374; 96375; 99284; A9270; J1171; J2405; Q9967

== ENCOUNTER 2025-10-11 01:34 | Emergency (ER) | payer BC, SELFPAY ==
--- NOTE | ~2025-10-11 | CT_ITS ---
EXAMINATION: CTA chest abdomen pelvis DATE: 10/11/2025 03:43 INDICATION: Epigastric abdominal pain. Sternal pain. TECHNIQUE: Computed tomographic angiography (CTA) of the chest, abdomen, and pelvis was performed with 100 mL Omnipaque-350 intravenous contrast. Automated exposure control and iterative reconstruction technique were employed. The dose- length product was 417.66 mGy-cm. Maximum intensity projection 3D-r econstructions of the aorta and other arteries were constructed by the technologist on a separate workstation. COMPARISON: CT chest 10/13/2024, CT abdomen and pelvis 06/07/2024 FINDINGS: CHEST CTA: There is mild emphysema. The lungs demonstrate mild atelectasis. No pleural effusion. The heart size is normal. No pericardial effusion. There is no pulmonary embolus. The aorta is normal. There is mild thoracic spondylosis. There are Schmorl's nodes at multiple levels. ABDOMEN AND PELVIS CTA: The liver, gallbladder, spleen, pancreas, adrenal glands, and kidneys are normal. There are no dilated loops of bowel. There are changes of appendectomy. There are no pathologically enlarged lymph nodes. There is no free intraperitoneal fluid. There is no significant stenosis of celiac axis, superior mesenteric artery, the renal arteries, or inferior mesenteric artery. There is mild lumbar spondylosis. IMPRESSION: 1. Mild emphysema. 2. No pulmonary embolus. Normal aorta. Reviewed, dictated and finalized at location E. ODITY SUPERVISOR
--- NOTE | ~2025-10-11 | XR_ITS ---
Examination: XR chest 1V portable Clinical History: abdominal pain Comparison: Chest x-ray 10/13/2024 Technique: Portable AP Findings: Heart size upper limit of normal. Lungs clear. No acute bony abnormality. IMPRESSION: 1. No acute cardiopulmonary findings given portable technique. Reviewed, dictated and finalized at location R. LITION ENGINEER
--- NOTE | 2025-10-11 01:46 | ECG_ITS ---
Test Date: 2025-10-11 01:44:45 Measurements Intervals [place] Rate: 105 P: 63 KS: 129 QRS: 53 QRSD: 90 T: 44 QT: 268 QTc: 355 Interpretive Statements SINUS TACHYCARDIA INCOMPLETE RIGHT BUNDLE BRANCH BLOCK NONSPECIFIC T-WAVE ABNORMALITY- DIFFUSE LEADS BASELINE ARTIFACT- I, II, III, AVR, AVL, AVF, V1-V6 BORDERLINE ECG Compared to ECG 10/13/2024 20:32:48 HEART RATE HAS INCREASED Electronically Signed On 10-11-2025 09:21:51 [employer] RN by Víctor Onofre D.O.
--- NOTE | 2025-10-11 01:49 | ED.ABDPAIN ---
HPI - Abdominal Pain General Chief Complaint: Abdominal Pain Stated Complaint: abd pain Time Seen by Provider: 10/11/25 01:36 Source: patient and EMS Mode of arrival: EMS Limitations: no limitations History of Present Illness HPI narrative: Patient is a 40-year-old female presents to the emergency department complaining of abdominal pain. patient points to her epigastric region as the location of the discomfort, woke up with it around 10:00 p.m., went to bed feeling well. His to limit his alcohol use yesterday preceding this. This that the pain is overall constant, sharp, sometimes radiates toward her chest, waxes and wanes in intensity, has not noticed anything making it better or worse, denies any recent injuries, denies any history of this pain in the past. Admits to chronic right lower quadrant abdominal pain which she has seen Gastroenterology for this kind changed has been going on for months. Patient admits that she was told she had thickening of her heart and has not gotten echocardiogram yet, has never seen a door trimmer. Patient notes that the pain takes her breath away. patient admits to nausea without any vomiting. Patient admits to chronic diarrhea that is unchanged. patient admits to his EGD and colonoscopy in the past. Denies history of blood clots. Related Data Home Medications ?Medication ?Instructions ?Recorded ?Confirmed ?Last Taken ?Type alprazolam 0.5 mg tablet (Xanax) 0.5 mg PO QHS PRN anxiety 05/31/21 09/15/25 06/27/24 History rituximab 10 mg/mL 10 mg IV Q4-6M 08/25/22 09/15/25 06/27/24 History concentrate,intravenous (Rituxan) hydroxychloroquine 200 mg tablet 300 mg PO DAILY 01/30/23 09/15/25 06/27/24 History (Plaquenil) Allergies Allergy/AdvReac Type Severity Reaction Status Date / Time vancomycin AdvReac Intermediate Redness of Verified 09/15/25 09:34 Skin morphine AdvReac Itching Verified 09/15/25 09:34 Review of Systems Review of Systems: A 10 system review of systems was completed on the patient and is negative except for what is stated in the HPI. Nursing and ancillary documentation was reviewed. [facility] Past Medical History Medical History Otorrhea, left ear Ear pain, right Unspecified mastoiditis, right ear Otorrhea of left ear Otalgia of left ear Sensation of fullness in left ear Otitis externa of right ear Bilateral otitis media with effusion Chronic sinusitis TMJ (temporomandibular joint disorder) Impacted cerumen of both ears Right otitis media Otalgia of right ear Otalgia of both ears Impacted cerumen of both ears Dysfunction of right eustachian tube Acute serous otitis media, right ear Encounter for surgical aftercare following surgery on the digestive system Pelvic pain Menopausal and female climacteric states Symptomatic postsurgical menopause Recurrent infections Right knee pain Tobacco dependence Cigarette smoker Post-op pain Post-operative pain Acute mastoiditis Low TSH level Hyperlipidemia Primary osteoarthritis of right knee Encounter for screening for respiratory tuberculosis (01/24/17) Rheumatoid arthritis Occult blood in stools Abdominal pain Discoid lupus just skin HSV (herpes simplex virus) infection Migraine Right wrist fracture Endometriosis Anxiety Bilateral ankle fractures Surgical History Surgical History H/O exploratory laparotomy exploratory laparotomy, lysis of adhesions, washout, placement of pelvic drain Hx of abdominal surgery 07/02/21, Exploratory laparoscopy, lysis of adhesions, wash out, pelvic drain History of bilateral salpingectomy 06/28/21 History of right oophorectomy 06/28/21, with excision and cauterization of endometriosis Minerva teeth extracted History of laparoscopy 9 on ovaries and 3 on right knee Hx of appendectomy Hx of right knee surgery x3 History of endometrial ablation 2017? History of left oophorectomy Family History Family History Father Hypertension Diabetes mellitus Heart problem Cancer Mother Hypertension Asthma Anxiety Depression Cerebrovascular accident Grandparent Cancer Grandparent Cancer Other Family history of arthritis Family history of migraine headaches Social History Social History Smoking packs per day: 0.5 Smoking cigarettes per day: 10.0 Years smoked: 20 Smoking pack-years: 10.00 Smoking status: Current every day smoker Tobacco type: cigarettes Smoking end date: 11/06/15 Alcohol intake: current Drinks per week: 4 Alcohol use details: Socially Substance use: never Substance use type: does not use Lack of Transportation: No Lack of Food: Never True Current Housing: I Have Housing Concerned About Future Housing: No Difficulty Paying Gas/Electric Bills: No Difficulty Paying for Meds: No Currently Unemployed: No Education: High School Diploma/GED Difficulty w/ Childcare or Family Care: No Living arrangements: alone Spiritual care concerns: No Exam Narrative: CONST: Moderate acute distress. HENMT: Head is normocephalic and atraumatic. Tacky mucous membranes. No posterior oropharynx erythema. EYES: No scleral icterus. No conjunctival injection or pallor. PERRL. NECK: No meningeal signs. RESP: Able to speak in full sentences. Normal respiratory effort. CTAB. CARDIO: Tachycardic rate. Regular rhythm. 2+ DP and radial pulses bilaterally. GI: Nondistended. mild tenderness palpation in the epigastrium and right lower quadrant, no rebound or guarding or rigidity. Soft. : No CVA tenderness to palpation. SKIN: No rashes or lesions noted on exposed skin. NEURO: Oriented x3. Moves all extremities. No focal neurological deficits. EXTREM/MSK/BACK: No pedal edema. PSYCH: Normal affect. Course Vital Signs Vital signs: Vital Signs Temperature 98.4 F 10/11/25 01:50 Pulse Rate 88 10/11/25 01:50 Respiratory Rate 20 10/11/25 01:50 Blood Pressure 123/109 H 10/11/25 01:50 Pulse Oximetry 99 10/11/25 01:50 Oxygen Delivery Room Air 10/11/25 01:50 Temperature 98.4 F 10/11/25 01:50 Pulse Rate 81 10/11/25 06:37 Respiratory Rate 18 10/11/25 06:37 Blood Pressure 115/76 10/11/25 04:48 Pulse Oximetry 96 10/11/25 06:37 Oxygen Delivery Room Air 10/11/25 01:50 [facility] MDM Narrative Medical decision making narrative: Patient presents with the above complaint. Initial vitals are remarkable for tachycardia. Physical examination as noted above. Plan discussed: laboratory analysis, EKG, imaging. Patient ordered IV fluids, Dilaudid, Protonix, Zofran, continuous cardiac monitoring, continuous pulse oximetry. CT chest abdomen pelvis preliminary findings radiology impression is no aortic aneurysm or dissection. No pulmonary embolism. No acute abnormality in the chest abdomen or pelvis. Left basilar pulmonary atelectasis. Appendectomy. Hepatomegaly. Patient was reassessed at the bedside. Patient resting comfortably appearing in no acute distress. The patient has remained stable throughout the entire ED visit. Counseled patient regarding diagnostic results and potential diagnosis. Anticipatory guidance provided. Patient instructed to follow up with PCP within the next 2-3 days. Patient counseled on: false reassurance from an emergency department evaluation; no current evidence of a medical emergency; return immediately for any new, recurrent, worsening, concerning, or refractory symptoms. Patient prescribed omeprazole, Maalox, Zofran. Prescription sent to preferred pharmacy. Medications discussed with patient. Additional verbal and printed discharge instructions were given and discussed with the patient. Patient verbally acknowledges understanding of condition and discharge instructions. All questions were answered to the patient's satisfaction. Patient is in agreement with the plan of care. The patient is stable for discharge and was discharged without incident. Differential Diagnosis Differential Diagnosis: esophagitis, gastritis, peptic ulcer disease, hepatobiliary pathology, pancreatitis, ACS, aortic dissection, myocarditis, pericarditis, esophageal spasm, pulmonary embolism. Medical Records I have reviewed the following patient records and this information was taken into consideration when formulating the assessment and plan.: previous ER visits Lab Data MDM Lab Attestation statement: I personally reviewed the patient's lab results. Lab results narrative: CBC reveals a white blood cell count of 14.3, platelet count of 537. Coags are within normal limits. Comprehensive metabolic panel reveals a chloride 112. lipase is 166. BNP is 106. Troponin is less than 0.012. Magnesium is 2.1. Lactic acid is 2.1. Urinalysis reveals a cloudy appearance, 1+ blood, 3+ leukocyte esterase, greater than 100 WBCs, no bacteria. UDS is negative. Ethyl alcohol level is 266. COVID and influenza and RSV testing are negative. Repeat troponin is less than 0.012. HCG testing is negative. 10/11/25 02:12 10/11/25 02:12 Labs: Lab Results 10/11/25 10/11/25 10/11/25 Range/Units 02:11 02:12 02:12 WBC 14.3 H (4.5-10.0) K/mm3 RBC 4.32 (4.2-5.4) M/mm3 Hgb 13.3 (12.0-15.0) g/dL Hct 37.6 (37.0-47.0) % MCV 87.0 (80-100) fl MCH 30.8 (26-34) pg MCHC 35.4 (32-36) g/dl RDW 12.8 (11.5-14.5) % Plt Count 537 H (150-375) k/mm3 MPV 9.8 (7.4-10.4) fl Immature Gran % (Auto) 0.4 (0-0.5) % Neut % (Auto) 55.3 (45.5-73.1) % Lymph % (Auto) 36.5 (18.3-44.2) % [place] % (Auto) 5.5 (2.6-8.5) % Eos % (Auto) 1.5 (0-4.4) % Baso % (Auto) 0.8 (0.2-1.2) % Lymph # (Auto) 5.21 H (0.9-3.2) K/mm3 [place] # (Auto) 0.8 H (0.1-0.6) K/mm3 Eos # (Auto) 0.2 (0-0.3) K/mm3 Baso # (Auto) 0.1 (0.0-0.1) K/mm3 Abs Immat Gran (auto) 0.05 H (0.00-0.031) K/mm3 Absolute Neuts (auto) 7.9 H (1.3-6.7) K/mm3 Absolute Nucleated RBC 0.000 (0.0-0.012) K/mm3 Band Neutrophils % Not Reportable Nucleated RBC % 0.0 (0.0-0.2) % Platelet Estimate Increased (Adequate) Anisocytosis 1+ Schistocytes None seen PT 12.3 (11.1-14.7) Seconds INR 0.9 APTT 23.7 (22.3-36.8) Seconds Sodium 145 (137-145) mmol/L Potassium 3.6 (3.4-5.0) mmol/L Chloride 112 H (98-107) mmol/L Carbon Dioxide 25 (22-30) mmol/L Anion Gap 8 (4-12) mmol/L BUN 11 (7-17) mg/dL Creatinine 0.68 L (0.7-1.0) mg/dL Estim Creat Clear Calc Not Reportable Estimated GFR > 60 (59 - ) Glucose 104 (65-110) mg/dL Lactic Acid 2.1 H (0.7-2.0) mmol/L Calcium 10.1 (8.4-10.2) mg/dL Magnesium 2.1 (1.6-2.3) mg/dL Total Bilirubin 0.4 (0.2-1.3) mg/dL AST 31 (14-36) U/L ALT 28 (6-35) U/L Alkaline Phosphatase 84 (38-126) U/L Troponin I Cancelled < 0.012 NT-Pro-B Natriuret Pep 106 H (19.9-100) pg/mL Total Protein 7.9 (6.3-8.2) g/dL Albumin 4.6 (3.5-5.1) g/dL Lipase 166 (23-300) U/L TSH (Reflex) 1.180 (0.465-4.68) uIU/mL Serum HCG, Qual Negative Urine Color (Yellow) Urine Appearance (Clear) Urine pH (5.0-9.0) Ur Specific [place] (1.001-1.035) Urine Protein (Negative) mg/dL Urine Glucose (UA) (Negative) mg/dL Urine Ketones (Negative) mg/dL Ur Blood (Man) (Negative) Urine Nitrate (Negative) Urine Bilirubin (Negative) Urine Urobilinogen (<2.0) mg/dL Leukocyte Esterase Rfl (Negative) EDISON/UL Urine RBC (0-2) /hpf Urine WBC (0-3) /hpf Ur Squamous Epith Cells (Few) /hpf Urine Bacteria /hpf Urine Casts Urine Opiates Screen (Negative) Urine Methadone Screen (Negative) Ur Barbiturates Screen (Negative) Ur Phencyclidine Scrn (Negative) Ur Amphetamine Screen (Negative) U Benzodiazepines Scrn (Negative) Urine Cocaine Screen (Negative) U Cannabinoids Screen (Negative) Ethyl Alcohol 226 (<10) mg/dL Influenza A (RT-PCR) (Negative) Influenza B (RT-PCR) (Negative) RSV (RT-PCR) (Negative) SARS-CoV-2 RNA (RT-PCR) (Negative) 10/11/25 10/11/25 Range/Units 02:18 05:02 WBC (4.5-10.0) K/mm3 RBC (4.2-5.4) M/mm3 Hgb (12.0-15.0) g/dL Hct (37.0-47.0) % MCV (80-100) fl MCH (26-34) pg MCHC (32-36) g/dl RDW (11.5-14.5) % Plt Count (150-375) k/mm3 MPV (7.4-10.4) fl Immature Gran % (Auto) (0-0.5) % Neut % (Auto) (45.5-73.1) % Lymph % (Auto) (18.3-44.2) % [place] % (Auto) (2.6-8.5) % Eos % (Auto) (0-4.4) % Baso % (Auto) (0.2-1.2) % Lymph # (Auto) (0.9-3.2) K/mm3 [place] # (Auto) (0.1-0.6) K/mm3 Eos # (Auto) (0-0.3) K/mm3 Baso # (Auto) (0.0-0.1) K/mm3 Abs Immat Gran (auto) (0.00-0.031) K/mm3 Absolute Neuts (auto) (1.3-6.7) K/mm3 Absolute Nucleated RBC (0.0-0.012) K/mm3 Band Neutrophils % Nucleated RBC % (0.0-0.2) % Platelet Estimate (Adequate) Anisocytosis Schistocytes PT (11.1-14.7) Seconds INR APTT (22.3-36.8) Seconds Sodium (137-145) mmol/L Potassium (3.4-5.0) mmol/L Chloride (98-107) mmol/L Carbon Dioxide (22-30) mmol/L Anion Gap (4-12) mmol/L BUN (7-17) mg/dL Creatinine (0.7-1.0) mg/dL Estim Creat Clear Calc Estimated GFR (59 - ) Glucose (65-110) mg/dL Lactic Acid 1.0 (0.7-2.0) mmol/L Calcium (8.4-10.2) mg/dL Magnesium (1.6-2.3) mg/dL Total Bilirubin (0.2-1.3) mg/dL AST (14-36) U/L ALT (6-35) U/L Alkaline Phosphatase (38-126) U/L Troponin I < 0.012 NT-Pro-B Natriuret Pep (19.9-100) pg/mL Total Protein (6.3-8.2) g/dL Albumin (3.5-5.1) g/dL Lipase (23-300) U/L TSH (Reflex) (0.465-4.68) uIU/mL Serum HCG, Qual Urine Color Yellow (Yellow) Urine Appearance Cloudy H (Clear) Urine pH 6.5 (5.0-9.0) Ur Specific [place] 1.009 (1.001-1.035) Urine Protein Negative (Negative) mg/dL Urine Glucose (UA) Negative (Negative) mg/dL Urine Ketones Negative (Negative) mg/dL Ur Blood (Man) 1+ H (Negative) Urine Nitrate Negative (Negative) Urine Bilirubin Negative (Negative) Urine Urobilinogen 0.2 (<2.0) mg/dL Leukocyte Esterase Rfl 3+ H (Negative) EDISON/UL Urine RBC 0-2 (0-2) /hpf Urine WBC >100 H (0-3) /hpf Ur Squamous Epith Cells Occasional (Few) /hpf Urine Bacteria None seen /hpf Urine Casts 0-2 Urine Opiates Screen Negative (Negative) Urine Methadone Screen Negative (Negative) Ur Barbiturates Screen Negative (Negative) Ur Phencyclidine Scrn Negative (Negative) Ur Amphetamine Screen Negative (Negative) U Benzodiazepines Scrn Negative (Negative) Urine Cocaine Screen Negative (Negative) U Cannabinoids Screen Negative (Negative) Ethyl Alcohol (<10) mg/dL Influenza A (RT-PCR) Negative (Negative) Influenza B (RT-PCR) Negative (Negative) RSV (RT-PCR) Negative (Negative) SARS-CoV-2 RNA (RT-PCR) Negative (Negative) Imaging Data Radiologist's impression: ITS Impressions Chest X-Ray 10/11/25 06:31 IMPRESSION: 1. No acute cardiopulmonary findings given portable technique. ECG Data EKG #1: Attestation: I personally reviewed and interpreted this ECG as follows: ECG completion date: 10/11/25 ECG completion time: 01:44 Interpretation: rate of 105, rhythm is sinus tachycardia, axis is normal, QRS duration 90 milliseconds, DE interval 129 milliseconds, baseline artifact present limiting evaluation, nonspecific T-wave abnormality, no ST elevation or depression. Discharge Plan Discharge Clinical Impression: Abdominal pain Alcohol intoxication Qualifiers: Complication of substance-induced condition: uncomplicated Qualified Code(s): F10.920 - Alcohol use, unspecified with intoxication, uncomplicated Patient Disposition: Home Condition: Stable Instructions: Antibiotic Form, Diet for Stomach Ulcers and Gastritis (ED), Abuse of Alcohol (ED), Abdominal Pain (ED), Epigastric Pain (ED) Additional Instructions: Rest and stay well hydrated, take Zofran as needed for nausea, take the omeprazole as prescribed and take the Maalox as prescribed. Refrain from any alcohol use. Refrain from any NSAID use. Follow-up with your primary care physician in the next few days for reassessment. Return immediately to the emergency department for any new or concerning symptoms especially fever, inability keep anything down by mouth, new or concerning pain, or any emergent concerns for life, limb, eyesight. Patient Language: [place] Prescriptions: New omeprazole 40 mg capsule,delayed release(DR/EC) 40 mg PO DAILY Qty: 30 0RF alum-mag hydroxide-simeth [Maalox Advanced] 200-200-20 mg/5 mL suspension 10 ml PO QID PRN (Reason: dyspepsia) Qty: 3000 0RF Rx Instructions: administer between meals and at bedtime ondansetron 4 mg tablet,disintegrating 4 mg PO Q8H PRN (Reason: nausea and vomiting) Qty: 14 0RF No Action escitalopram oxalate 20 mg tablet See Rx Instructions .ROUTE .COMPLEX Qty: 90 1RF Dose Instruction: TAKE 1 TABLET BY MOUTH EVERYDAY AT BEDTIME Rx Instructions: TAKE 1 TABLET BY MOUTH EVERYDAY AT BEDTIME ondansetron 4 mg tablet,disintegrating 4 mg PO Q8H PRN (Reason: nausea and vomiting) Qty: 20 2RF alprazolam [Xanax] 0.5 mg tablet 0.5 mg PO QHS PRN (Reason: anxiety) estrogens-methyltestosterone [Covaryx] 1.25-2.5 mg tablet 1 tablet PO DAILY Qty: 30 0RF estradiol [Estrace] 0.01 % (0.1 mg/gram) cream 1 g vaginal DAILY Qty: 42.5 0RF Rx Instructions: for 14 days estradiol [Estrace] 0.01 % (0.1 mg/gram) cream 1 g vaginal 2XW Qty: 42.5 3RF Rx Instructions: Start 2x/week after loading dose hydroxychloroquine [Plaquenil] 200 mg tablet 300 mg PO DAILY Rituxan 10 mg/mL Concentrate 10 mg IV Q4-6M Rx Instructions: Every 3 months (DME) FreeStyle Markus 3 Sensor Device See Rx Instructions .Route Qty: 1 0RF Rx Instructions: To check glucose Follow-up/Referrals: Georgina Mas APRN, REAL PROPERTY EVALUATOR-C [Primary Care Provider, Internal Medicine] - 3 Days Time of Disposition: 07:17
[2025-10-11 01:50] VITALS: BP 123/109; PULSE 88; RESP 20; TEMP 36.9; O2SAT 99
[2025-10-11] MEDS: SODIUM CHLORIDE 0.9% IV 1,000 ML 999 ML IV CONT ×2 (01:58→05:10)
[2025-10-11] MEDS: ONDANSETRON INJ 4 MG/2 ML VIAL IV PUSH ×2 (02:01→06:15)
[2025-10-11] MEDS: PANTOPRAZOLE SODIUM IV 40 MG VIAL IV PUSH (02:03)
[2025-10-11] MEDS: HYDROmorphone HCL INJ (*CRX) 1 MG/ML SYR IV PUSH ×2 (02:05→04:39)
[2025-10-11 02:19] LABS: Hematocrit 37.6 % (37.0-47.0); Hemoglobin 13.3 g/dL (12.0-15.0); Immature Granulocyte Percent A 0.4 % (0-0.5); Lymphocytes Absolute Auto 5.21 K/mm3 (0.9-3.2); Mean Corpuscular HGB Conc 35.4 g/dl (32-36); Mean Corpuscular Hemoglobin 30.8 pg (26-34); Mean Corpuscular Volume 87.0 fl (80-100); Nucleated Red Blood Cells Absolute Auto 0.000 K/mm3 (0.0-0.012); Nucleated Red Blood Cells Perc 0.0 % (0.0-0.2); Platelet Count Result 537 k/mm3 (150-375); Red Blood Count 4.32 M/mm3 (4.2-5.4); White Blood Count 14.3 K/mm3 (4.5-10.0)
[2025-10-11 02:34] LABS: Add Urine Microscopic? YES; Appearance Urine Cloudy (Clear); Glucose Urine UA Negative (Negative); Leukocyte Esterase Ur 3+ LEU/UL (Negative); Nitrate Urine Negative (Negative); Non Pathogenic Casts 0-2; Specific Grav Ur 1.009 (1.001-1.035)
[2025-10-11 02:43] LABS: Alanine Aminotransferase 28 U/L (6-35); Albumin Level 4.6 g/dL (3.5-5.1); Alkaline Phosphatase 84 U/L (38-126); Anion Gap 8 mmol/L (4-12); Anisocytosis 1+; Aspartate Amino Transferase 31 U/L (14-36); Bilirubin,Total 0.4 mg/dL (0.2-1.3); Blood Urea Nitrogen 11 mg/dL (7-17); Calcium 10.1 mg/dL (8.4-10.2); Carbon Dioxide 25 mmol/L (22-30); Chloride 112 mmol/L (98-107); Estimated Glomerular Filt Rate > 60; Glucose 104 mg/dL (65-110); Lipase 166 U/L (23-300); Magnesium 2.1 mg/dL (1.6-2.3); Potassium 3.6 mmol/L (3.4-5.0); Schistocytes None Seen; Sodium 145 mmol/L (137-145); Total Protein 7.9 g/dL (6.3-8.2)
[2025-10-11 02:44] LABS: INR 0.9; Prothrombin Time 12.3 Seconds (11.1-14.7)
[2025-10-11 02:52] LABS: Partial Thromboplastin Time 23.7 Seconds (22.3-36.8)
[2025-10-11 02:54] LABS: NT Pro B Type Natriuretic Pept 106 pg/mL (19.9-100); Troponin I < 0.012 ng/mL (0.000-0.034)
[2025-10-11 02:56] LABS: Cannabinoid Screen Urine Negative (Negative)
[2025-10-11 03:13] LABS: SPREG INTERNAL CONTROL Positive; Serum Qual hCG Negative; Thyroid Stimulating Hormone Reflex 1.180 uIU/mL (0.465-4.68)
[2025-10-11 03:14] LABS: Influenza A QL RT-PCR Negative (Negative); Influenza B QL RT-PCR Negative (Negative); RSV RNA, RT-PCR Negative (Negative); SARS-CoV-2 RNA PCR Negative (Negative)
[2025-10-11 04:48] VITALS: BP 115/76; PULSE 78; RESP 20; O2SAT 98
[2025-10-11 05:35] LABS: Troponin I < 0.012 ng/mL (0.000-0.034)
[2025-10-11 06:37] VITALS: PULSE 81; RESP 18; O2SAT 96
--- NOTE | 2025-10-11 06:40 | PC.NURSE ---
pt stated she drank few sips of gatorade er aware. pt voiced understanding of being npo
== END 2025-10-11 07:26 | disposition home or self-care (01) ==
PROVIDERS: Emergency Provider Student in an Organized Health Care Education/Training Program; PCP Clinical Nurse Specialist
DX: R10.13 Epigastric pain (principal); F10.120 Alcohol abuse with intoxication, uncomplicated; Y90.7 Blood alcohol level of 200-239 mg/100 ml; Z20.822 Contact with and (suspected) exposure to COVID-19; J32.9 Chronic sinusitis, unspecified; E78.5 Hyperlipidemia, unspecified; L93.0 Discoid lupus erythematosus; N80.9 Endometriosis, unspecified; M17.11 Unilateral primary osteoarthritis, right knee; M06.9 Rheumatoid arthritis, unspecified; F41.9 Anxiety disorder, unspecified; Z87.891 Personal history of nicotine dependence; Z90.79 Acquired absence of other genital organ(s); Z90.722 Acquired absence of ovaries, bilateral
CPT/HCPCS: 36415; 71045; 71275; 74174; 80053; 80307; 81001; 82077; 83605; 83690; 83735; 83880; 84443; 84484; 84703; 85025; 85610; 85730; 87086; 87637; 93005; 96361; 96374; 96375; 96376; 99284; J1171; J1200; J2405; J2470; J7030; Q9967